=== PATIENT | male | born 1985 | race Native Hawaiian/Other Pacific Islander ===

== ENCOUNTER 2025-02-05 17:56 | Emergency (ER) | payer MEDICARE, SELFPAY ==
--- NOTE | ~2025-02-05 | CT_ITS ---
EXAMINATION: CT LE LT w con DATE: 02/05/2025 21:43 INDICATION: Left lower limb pain. TECHNIQUE: Computed tomography (CT) of the left lower limb was performed with 100 mL Omnipaque 350 intravenous contrast. Automated exposure control and iterative reconstruction technique were employed. The dose-length product was 1629.40 mGy-cm. COMPARISON: None FINDINGS: Alignment is normal. No fracture. The knee joint spaces are normal. No knee joint effusion. 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 There is absence of the head of fourth metatarsal. The bone is well corticated. 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 There are enthesophytes at the posterior and plantar aspects of calcaneal tuberosity. There is subcutaneous edema in the lower leg and foot. There is soft tissue attenuation in the lateral forefoot, consistent with cellulitis versus scarring. IMPRESSION: 1. No specific evidence of osteomyelitis. Reviewed, dictated and finalized at location E.
--- NOTE | ~2025-02-05 | US_ITS ---
EXAMINATION:US venous doppler LE LT INDICATION:Left calf pain TECHNIQUE: Multiple grayscale, color flow and Doppler images of the left lower extremity deep venous systems were obtained and reviewed. COMPARISON:No prior studies for comparison. FINDINGS: The common femoral, superficial femoral and popliteal veins demonstrate normal respiratory variation, augmentation and compressibility. Color flow is also seen within the posterior tibial, peroneal, greater saphenous and profunda veins. IMPRESSION: 1: No lower extremity deep venous thrombosis. Reviewed, dictated and finalized at location O.
[2025-02-05 18:25] VITALS: BP 146/94; PULSE 102; RESP 18; TEMP 36.9; O2SAT 100
[2025-02-05 20:15] VITALS: BP 156/96; PULSE 102; RESP 14; O2SAT 99
[2025-02-05 20:46] LABS: Hematocrit 41.0 % (42.0-52.0); Hemoglobin 14.0 g/dL (14.0-18.0); Immature Granulocyte Percent A 0.4 % (0-0.5); Lymphocytes Absolute Auto 1.62 K/mm3 (0.9-3.2); Mean Corpuscular HGB Conc 34.1 g/dl (32-36); Mean Corpuscular Hemoglobin 29.5 pg (26-34); Mean Corpuscular Volume 86.3 fl (80-100); Nucleated Red Blood Cells Absolute Auto 0.000 K/mm3 (0.0-0.012); Nucleated Red Blood Cells Perc 0.0 % (0.0-0.2); Platelet Count Result 211 k/mm3 (150-375); Red Blood Count 4.75 M/mm3 (4.6-6.20); White Blood Count 8.3 K/mm3 (4.5-10.0)
[2025-02-05 21:09] LABS: Anion Gap 11 mmol/L (4-12); Blood Urea Nitrogen 17 mg/dL (9-20); CRP < 0.5 mg/dL (<1.0); Calcium 9.5 mg/dL (8.4-10.2); Carbon Dioxide 19 mmol/L (22-30); Chloride 104 mmol/L (98-107); Estimated CRCL calculation 130 ml/min; Estimated Glomerular Filt Rate > 60; Glucose 297 mg/dL (65-110); Potassium 4.1 mmol/L (3.4-5.0); Sodium 134 mmol/L (137-145)
[2025-02-05 22:48] VITALS: BP 152/88; PULSE 93; RESP 12; O2SAT 100
[2025-02-06] MEDS: ACETAMINOPHEN 500 MG TABLET 1000 MG PO (00:07)
[2025-02-06] MEDS: Please add drug allergy info to patient profile. 1 EACH XX (00:07)
--- NOTE | 2025-02-06 01:40 | ED.EXTPRO ---
HPI - Extremity Problem General Chief complaint: Extremity Problem,Nontraumatic Stated complaint: left leg swelling, sob Time Seen by Provider: 02/05/25 19:52 History of Present Illness HPI Narrative: Patient with concern for osteomyelitis, had been treated for this a month ago at outside hospital including surgery, since then has been incarcerated and was not on antibiotics and he is concerned that it may be back. Has had more swelling to the left leg and foot. Related Data Allergies Allergy/AdvReac Type Severity Reaction Status Date / Time ibuprofen Allergy Severe Anaphylaxis Verified 02/06/25 00:07 Review of Systems Review of Systems: All systems reviewed & are unremarkable except as noted in HPI and below Exam Narrative: EXAMINATION OF ORGAN SYSTEMS/BODY AREAS: Constitutional: Vital signs per nursing GENERAL:[No acute distress, non-toxic appearing.] HEAD: Normal with no signs of head trauma. EYES: EOMI, conjunctiva normal ENT: Hearing grossly intact LUNGS: Nonlabored breathing. HEART: [Regular rate and rhythm] ABD: [Soft], [nontender to palpation] EXT: Obvious swelling and some tenderness to the left foot and lower leg SKIN: Healing incision sites left lower leg NEURO: [Alert and oriented x 3. No gross focal sensory or strength deficits.] PSYCH: Normal affect Course Vital Signs Vital signs: Vital Signs Temperature 98.4 F 02/05/25 18:25 Pulse Rate 102 H 02/05/25 18:25 Respiratory Rate 18 02/05/25 18:25 Blood Pressure 146/94 H 02/05/25 18:25 Pulse Oximetry 100 02/05/25 18:25 Oxygen Delivery Room Air 02/05/25 18:25 Temperature 98.4 F 02/05/25 18:25 Pulse Rate 83 02/06/25 05:48 Respiratory Rate 15 02/06/25 05:48 Blood Pressure 160/84 H 02/06/25 05:48 Pulse Oximetry 98 02/06/25 05:48 Oxygen Delivery Room Air 02/05/25 18:25 MDM - Extremity (Nontraumatic) MDM Narrative Medical decision making narrative: Patient with concern for osteomyelitis, had been treated for this a month ago at outside hospital including surgery, since then has been incarcerated and was not on antibiotics and he is concerned that it may be back. Has had more swelling to the left leg and foot. Labs here very reassuring including no white count, normal CRP. DVT ultrasound negative, CT lower extremity with some soft tissue swelling and edema, cannot exclude underlying osteomyelitis. Case discussed with his silk top hat body maker who performed the surgery outside hospital, he does feel patient can follow-up outpatient, can start him on doxycycline at this time. Patient given a dose here in prescriptions and follow-up information provided. Lab Data 02/05/25 20:36 02/05/25 20:36 Labs: Lab Results 02/05/25 02/05/25 Range/Units 18:29 20:36 WBC 8.3 (4.5-10.0) K/mm3 RBC 4.75 (4.6-6.20) M/mm3 Hgb 14.0 (14.0-18.0) g/dL Hct 41.0 L (42.0-52.0) % MCV 86.3 (80-100) fl MCH 29.5 (26-34) pg MCHC 34.1 (32-36) g/dl RDW 13.2 (11.5-14.5) % Plt Count 211 (150-375) k/mm3 MPV 9.9 (7.4-10.4) fl Immature Gran % (Auto) 0.4 (0-0.5) % Neut % (Auto) 69.0 (45.5-73.1) % Lymph % (Auto) 19.6 (18.3-44.2) % Collin % (Auto) 8.2 (2.6-8.5) % Eos % (Auto) 2.4 (0-4.4) % Baso % (Auto) 0.4 (0.2-1.2) % Lymph # (Auto) 1.62 (0.9-3.2) K/mm3 Collin # (Auto) 0.7 H (0.1-0.6) K/mm3 Eos # (Auto) 0.2 (0-0.3) K/mm3 Baso # (Auto) 0.0 (0.0-0.1) K/mm3 Abs Immat Gran (auto) 0.03 (0.00-0.031) K/mm3 Absolute Neuts (auto) 5.7 (1.3-6.7) K/mm3 Absolute Nucleated RBC 0.000 (0.0-0.012) K/mm3 Nucleated RBC % 0.0 (0.0-0.2) % ESR 21 H (0-20) mm/hr Sodium 134 L (137-145) mmol/L Potassium 4.1 (3.4-5.0) mmol/L Chloride 104 (98-107) mmol/L Carbon Dioxide 19 L (22-30) mmol/L Anion Gap 11 (4-12) mmol/L BUN 17 (9-20) mg/dL Creatinine 0.90 (0.7-1.3) mg/dL Estim Creat Clear Calc 130 ml/min Estimated GFR > 60 (59 - ) Glucose 297 H (65-110) mg/dL POC Capillary Glucose 295 H (65-105) mg/dl Calcium 9.5 (8.4-10.2) mg/dL C-Reactive Protein < 0.5 (<1.0) mg/dL Discharge Plan Discharge Clinical Impression: Foot pain Patient Disposition: Home Condition: Stable Instructions: Antibiotic Form, Chronic Wounds (ED) Additional Instructions: Please take the antibiotics as prescribed and follow up to your silk top hat body maker Dr Ramirez -- [phone]. You can always return to the ER for any further issues. Patient Language: Ivorian Prescriptions: New doxycycline hyclate 100 mg capsule 100 mg PO Q12H 7 Days Qty: 14 0RF Follow-up/Referrals: PHYSICIAN NOT ON STAFF,NONSTAFF [Primary Care Provider]
[2025-02-06 02:39] VITALS: BP 163/90; PULSE 80; RESP 14; O2SAT 100
[2025-02-06] MEDS: MORPHINE SULFATE (*CRX) 4 MG/ML INJ IV PUSH (05:25)
[2025-02-06 05:48] VITALS: BP 160/84; PULSE 83; RESP 15; O2SAT 98
[2025-02-06] MEDS: DOXYCYCLINE HYCLATE 100 MG TABLET PO (06:13)
[2025-02-06 06:21] VITALS: BP 160/84; PULSE 83; RESP 15; O2SAT 98
== END 2025-02-06 06:24 | disposition home or self-care (01) ==
PROVIDERS: Emergency Provider Emergency Medicine
DX: M79.672 Pain in left foot (principal)
CPT/HCPCS: 36415; 73701; 80048; 82948; 85025; 85652; 86140; 87040; 93971; 96374; 99284; A9270; J2270; Q9967

== ENCOUNTER 2025-02-09 08:54 | Emergency (ER) | payer MEDICARE, SELFPAY ==
--- OUTSIDE RECORDS SUMMARY | 2025-02-07 23:13 | XMS_ITS | Encounter Summary ---
Author Organization [facility] Healthcare Address [address] [place] [address] Care Team Providers Care Tank Calibrator Name Role Phone Toribio Wolfe MD Unavailable [phone] Lilibeth Swanson NP Unavailable [phone] Tera Yousif MD Unavailable [phone] Sandie Ramirez DPM Unavailable [phone] Tarun Dunham MD Unavailable [phone] Galileo Reese DPM Unavailable [phone] Allan Tang MD Unavailable [phone] Irene Larkin NP Primary Care Provider Reason for Visit * Reason Comments Shortness of Breath BIBEMS from home wit h SOB that started intermitly early today, then the past couple of hours it has progressively gotten worse. Encounter Details Date Type Department Care Team (Late st Contact Info) Description 02/07/2025 11:13 PM CDT - 02/07/2025 11:29 PM CDT Emergency [facility] Emergency Department [address] [place] [address] Shortness of breath (Primary Dx) Discharge Disposition: Discharge to home or self care Social History Tobacco Use Types Packs/Day Years Used Date Smoking Tobacco: Former Cigarettes Smokeless Tobacco: Former Chew Alcohol Use Standard Drinks/Week Comments Never 0 (1 standard drink = 0.6 oz pur e alcohol) OASIS D0700: Social Isolation Answer Da te Recorded Frequency of experiencing loneliness or isolatio n Never 01/17/2025 OASIS A1250: Transportation Answer Date Recorded Lack of Transportation (Medical) No 01/17/2025 Lack of Transportation (Non-Medical) No 01/17/2025 Patient Unable or Declines to Respond No 01/17/2025 OASIS B1300: Health Literacy Answer Kenney e Recorded Frequency of needing help to read materials from doctor or pharmacy Never 01/17/2025 [facility] Utilities Answer Date Recorded In the past 12 months has e [employer], gas, oil, or water [employer] threatened to shut off services in your home? Yes 12/18/2024 Humiliation, Afraid, Rape, and Kick questionnair e Answer Date Recorded Within the last year, have y ou been afraid of your partner or ex-partner? No 05/25/2024 Within the last year, have y ou been humiliated or emotionally abused in other ways by your partner or ex-partner? No Within the last year, have y ou been kicked, hit, slapped, or otherwise physically hurt by your partner or ex-partner? No 05/25/2024 Within the last year, have y ou been raped or forced to have any kind of sexual activity by your partner or ex-partner? No 05/25/2024 Social Connection and Isolation Panel Answer Date Recorded In a typical week, how many times do you talk on the phone with family, friends, or neighbors? More than three times a week 12/18/2024 How often do you get togethe r with friends or relatives? Never 12/18/2024 How often do you attend chur ch or latter day services? Never 12/18/2024 Do you belong to any clubs o r organizations such as latter day groups, unions, fraternal or athletic groups, or school groups? No 12/18/2024 How often do you attend meet ings of the clubs or organizations you belong to? Never 12/18/2024 Are you , , di vorced, , never , or living with a partner? 12/18/2024 Overall Financial Resource Strain (CARDIA) Answe r Date Recorded How hard is it for you to pa y for the very basics like food, housing, medical care, and heating? Very hard 12/18/2024 PHQ-2 Answer Date Recorded PHQ-2 Total Score (If total score is 3 or more points, staff should administer the PHQ-9) 0 01/19/2025 [facility] Occupat ional [facility] - Occupational Stress Questionnaire Answer Date Recorded Do you feel stress - tense, restless, nervous, or anxious, or unable to sleep at night because your mind is troubled all the time - these days? Rather much 05/25/2024 Exercise Vital Sign Answer Date Recorde d On average, how many days pe r week do you engage in moderate to strenuous exercise (like a brisk walk)? 2 days 05/25/2024 On average, how many minutes do you engage in exercise at this level? 90 min 05/25/2024 Hunger Vital Sign Answer Date Recorded Within the past 12 months, y ou worried that your food would run out before you got the money to buy more. Never true 12/19/19 25 Within the past 12 months, t he food you bought just didn't last and you didn't have money to get more. Never true 12/18/2024 PRAPARE - Transportation Answer Date Re corded In the past 12 months, has l ack of transportation kept you from medical appointments or from getting medications? No 08/2024 In the past 12 months, has l ack of transportation kept you from meetings, work, or from getting things needed for daily living? No 12/18/2024 PHQ-9 Answer Date Recorded PHQ-9 Total Score 0 05/25/2024 Housing Stability Vital Sign Answer Kenney e Recorded In the last 12 months, was t here a time when you were not able to pay the mortgage or rent on time? Yes 12/18/2024 In the past 12 months, how m any times have you moved where you were living? 0 12/18/2024 At any time in the past 12 m [facility], were you homeless or living in a usp (including now)? No 12/18/2024 AUDIT-C Answer Date Recorded Q1: How often do you have a drink containing alcohol? Never 01/19/2025 Q2: How many drinks containi ng alcohol do you have on a typical day when you are drinking? Patient does not drink Q3: How often do you have si x or more drinks on one occasion? Never 01/19/2025 Overall Financial Resource Strain (CARDIA) Answe r Date Recorded How hard is it for you to pa y for the very basics like food, housing, medical care, and heating? Very hard 12/27/2024 Personal Safety Answer Date Recorded Have you ever been in or are you currently in a harmful physical or emotional relationship or is someone making you feel afraid or unsafe? Denies 02/07/2025 Education Answer Date Recorded What is the highest level of school you have completed or the highest degree you have received? Master's degree (e.g., MA, MS, Carmen, MEd, RECORD CLERK, TRACEY) 05/18/2024 Sex and Gender Information Value Date Recorded Sex Assigned at Not on file Legal Sex Male 2:28 PM CDT Gender Identity Not on file Sexual Orientation Not on file documented as of this encounter Last Filed Vital Signs Vital Sign Reading Time Taken Comments Blood Pressure 133/93 02/07/2025 7:40 PM CDT Pulse 101 02/07/2025 7:40 PM CDT Temperature 37 C (98.6 F) 02/07/2025 7:39 PM CDT Respiratory Rate 18 02/07/2025 7:40 PM CDT Oxygen Saturation 96% 02/07/2025 7:40 PM CDT Inhaled Oxygen Concentration - - Weight 117.9 kg (260 lb) 02/07/2025 7:39 PM CDT Height 185.4 cm (6' 1) 02/07/2025 7:39 PM CDT Body Mass Index 34.3 02/07/2025 7:39 PM CDT documented in this encounter Discharge Instructions * Discharge Instructions* Shannan Garcia NP - 02/07/2025 11:20 PM CDT Take medicines as needed for shortness of breath, follow up with the primary care doctor for re-evaluation, return to ED immediately for any worsening symptoms. documented in this encounter Medications at Time of Discharge albuterol HFA (PROVENTIL HFA,VENTOLIN HFA,PROAIR HFA) 90 mcg/actuation inhaler Inhale 2 puffs every 4 (four) hours as needed for wheezing 1 each 02/07/2025 blood glucose diagnostic (glucose blood) stripIndications:typ e 2 diabetes mellitus Check blood sugar 3x times a day or as directed 100 each 5 06/12/2024 insulin aspart (NovoLOG) 100 unit/mL (3 mL) pen for injectionIndications :type 2 diabetes mellitus Inject 26 Units under the skin 3 (three) times a day with meals (plus blood glucose mg/dL 150-199: 1 unit, 200-249: 2 units, 250-299: 3 units, 300 or greater: 4 units, 350 or greater: 5 units. Notify provider for blood glucose greater than 299 mg/dL. Max daily dose 90 units) 70 mL 3 01/19/2025 insulin glargine 100 unit/mL (3 mL) pen for injectionIndications :DM Inject 42 Units under the skin 2 (two) times a day 01/19/2025 lisinopriL (PRINIVIL,ZESTRIL) 2.5 mg tabletIndications:Ty pe 2 diabetes mellitus with hyperglycemia, with long-term current use of insulin (HCC),Small vessel arterial disease due to type 2 diabetes mellitus (HCC) Take 1 tablet (2.5 mg total) by mouth daily 90 tablet 1 01/19/2025 6 Narcan 4 mg/actuation spray,non-aerosol 0 12/28/2024 Oneuch Delica Plus Lancet 33 gauge miscIndications:type 2 diabetes mellitus 06/15/2024 pen needle, diabetic 32 gauge x 5/32 needle 12/06/2024 prazosin (MINIPRESS) 2 mg capsuleIndications:P ost Traumatic Stress Disorder Take 2 capsules (4 mg total) by mouth nightly 4 mg total at night 180 capsule 1 08/31/2024 6 pregabalin (LYRICA) 100 mg capsuleIndications:D iabetic Peripheral Neuropathy Take 1 capsule (100 mg total) by mouth 3 (three) times a day 270 capsule 1 01/19/2025 6 rosuvastatin (CRESTOR) 5 mg tabletIndications:Ty pe 2 diabetes mellitus with hyperglycemia, with long-term current use of insulin (HCC),Small vessel arterial disease due to type 2 diabetes mellitus (HCC),Mixed hyperlipidemia Take 1 tablet (5 mg total) by mouth daily 90 tablet 1 01/19/2025 tirzepatide (Mounjaro) 7.5 mg/0.5 mL pen injector injectionIndications :Type 2 diabetes mellitus with hyperglycemia, with long-term current use of insulin (HCC) Inject 0.5 mL (7.5 mg total) under the skin every 7 days 6 mL 01/19/2025 traZODone (DESYREL) 300 mg tabletIndications:in somnia associated with depression Take 1 tablet (300 mg total) by mouth nightly as needed for sleep 90 tablet 1 08/31/2024 6 documented as of this encounter Ordered Prescriptions Prescription Sig Dispense Quantity Refills Last Filled Start Date End Date albuterol HFA (PROVENTIL HFA,VENTOLIN HFA,PROAIR HFA) 90 mcg/actuation inhaler Inhale 2 puffs every 4 (four) hours as needed for wheezing 1 each 02/07/2025 6 documented in this encounter Discharge Disposition Disposition Code Departure Means Destination Comment s Discharge to home or self care documented in this encounter ED Notes * Shikha Lehman PA - 02/07/2025 9:27 PM CDT HPI Chief Complaint Patient presents with ??? Shortness of Breath BIBEMS from home with SOB that started intermitly early today, then the past couple of hours it hasprogressively gotten worse. 39-year-old A&O x4 male patient presents for evaluation of generalized body aches including chest pain and intermittent shortness a breath. [facility] Was seen at [facility] just prior to this and diagnosed with hyperglycemia. His was improved and he was discharge. He states the chest pain and shortness of breath was present before his visit to then today but he did nottell them about concerns Patient History: Past Medical History: Diagnosis Date ??? Anxiety ??? Cancer (HCC) ??? Depression ??? Diabetes mellitus (HCC) ??? Diabetic ketoacidosis without coma associated with type 2 diabetes mellitus (HCC) 05/17/2024 ??? GERD (gastroesophageal reflux disease) ??? Headache ??? Hepatocellular carcinoma (HCC) ??? Hyperlipidemia ??? Hypertension ??? PTSD (post-traumatic stress disorder) ??? Sleep difficulties ??? TBI (traumatic brain injury) (HCC) ??? Type 2 diabetes mellitus ??? Upper GI bleed 11/13/2021 Last Assessment & Plan: Patient presents with episode of epigastric abdominal pain and hematemesis 1 day prior to hospitalization ?? Patient also complained of blood in his stool 2 days prior to this presentation ?? Evaluated by Gastroenterology recommend conservative management Hemoglobin Date Value Ref Range Status 10/31/2021 13.8 13.5 - 17.0 g/dL Final Patient was switched from Pro Review of Systems Review of Systems Respiratory: Positive for shortness of breath. Cardiovascular: Positive for chest pain. All other systems reviewed and are negative. Physical Exam ED Triage Vitals Temp Pulse Resp BP SpO2 02/07/25193802/07/25193902/07/25193902/07/25193902/07/251939 37 ??C (98.6 ??F) 101 18 133/93 96 % Temp src Heart Rate Source Patient Position BP Location FiO2 (%) -- -- -- -- -- Height Height Method Weight Weight Method 02/07/251938 -- 02/07/251938 -- 1.854 m (6' 1) 117.9 kg (260 lb) Physical Exam Vitals and nursing note reviewed. Constitutional: General: He is not in acute distress. Appearance: Normal appearance. He is not ill-appearing, toxic-appearing or diaphoretic. Eyes: Extraocular Movements: Extraocular movements intact. Pupils: Pupils are equal, round, and reactive to light. Cardiovascular: Rate and Rhythm: Normal rate. Pulses: Normal pulses. Pulmonary: Effort: Pulmonary effort is normal. Breath sounds: Normal breath sounds. Abdominal: Tenderness: There is no abdominal tenderness. Musculoskeletal: General: No swelling or tenderness. Normal range of motion. Cervical back: Normal range of motion. Skin: General: Skin is warm and dry. Capillary Refill: Capillary refill takes less than 2 seconds. Neurological: General: No focal deficit present. Mental Status: He is alert and oriented to person, place, and time. Cranial Nerves: No cranial nerve deficit. Sensory: No sensory deficit. Motor: No weakness. Coordination: Coordination normal. Gait: Gait normal. Deep Tendon Reflexes: Reflexes normal. MDM Heart Score Medical Decision Making 39-year-old A&O x4 male patient presents for evaluation of chest pain, shortness a breath. thisstarted this morning while at rest and has been intermittent. [facility] and not able to fill any prescriptions. Medical history only relevant for diabetes. Of note, [facility] and discharged from the ER just prior to arrival where he did not mention the chest pain or shortness of breath to them. He was found to be hyperglycemic but not in DKA. He was given insulin and fluids and monitored and improved. He denies fever or chills. No cough Physical exam shows well-appearing male patient. Lungs clear all gunn. Heart tones normal. No swelling lower extremities. Skin pink/warm/dry. Abdomen soft nontender all quadrants. No obvious respiratory distress, able to speak in clear sentences without increased work of breathing including tripoding or accessory muscle use Differential: Generalized malaise, musculoskeletal pain, metabolic derangement, pneumonia. Doubt ACS. Doubt PE, 100% on room air and not tachy Plan: Labs, EKG, chest x-ray Amount and/or Complexity of Data Reviewed Labs: Decision-making details documented in ED Course. Radiology: Decision-making details documented in ED Course. ECG/medicine tests: independent interpretation performed. ED Course as of 02/07/25 2321 Time: 02/07 2103 Value: Trop T hs(!): 25 Comment: We will trend By: Shikha Lehman PA Time: 02/07 2103 Value: CBC with auto differential: WBC 9.41 Hgb 14.4 Hct 41.1 Plt 208 MPV 10.4 RBC 4.79 MCV 85.8 MCH 30.1 MCHC 35.0 RDW CV 12.9 RDW SD 39.9 NRBC abs 0.00 Comment: Unremarkable By: Shikha Lehman PA Time: 02/07 2103 Value: Glucose(!): 247 Comment: No gap By: Shikha Lehman PA Time: 02/08 2104 Value: XR Chest 1 Vw Portable (If patient hemodynamically UNstable or UNable to ambulate) Comment: Negative By: Shikha Lehman PA Time: 02/08 2132 Comment: Will transfer care to MATTHEW Garcia d/t shift jw. Pending T2 result for dispo By: Shikha Lehman PA Time: 02/08 2320 Comment: Received sign-out from Smiley RAMOS pending 2nd tropes. Her 2nd troponin insignificant, he has no symptoms, though he came in for shortness of breath, has a lung sounds are clear, no hypoxemia, notachypnea, no tachycardia. Sending him home on ProAir along with the instruction to follow up with the primary care doctor for re-evaluation return to ED immediately for any worsening symptoms. He agrees with this plan. By: Shannan Garcia NP Final diagnoses: None Shikha Lehman PA 02/07/252132 documented in this encounter Miscellaneous Notes * ED Procedure Note - Jh Cheema MD - 02/07/2025 8:10 PM CDTAssociated Order(s): ECG 12 lead Procedure ECG 12 lead Date/Time: 02/07/2025 8:10 PM Performed by: Jh Cheema MD Authorized by: Jh Cheema MD Rate: ECG rate: 103 ECG rate assessment: tachycardic Rhythm: Rhythm: sinus tachycardia Interpretation: Interpretation: abnormal Jh Cheema MD 02/07/252009 documented in this encounter Plan of Treatment Not on file documented as of this encounter Procedures Procedure Name Priority Date/Time Associated Diagnosis Comments POCT GLUCOSE DEVICE Routine 02/07/2025 1 1:24 PM CDT TROPONIN T HIGH-SENSITIVITY 2-HOUR Timed 02/07/2025 10:18 PM CDT XR CHEST 1 VIEW ED 02/07/2025 8:11 PM CDT TROPONIN T HIGH-SENSITIVITY SERIES (BASELINE, 2HR, 4HR, 6HR) STAT 02/07/2025 8:08 PM CDT EGFR STAT 02/07/2025 8:08 PM CDT DIFFERENTIAL AUTO STAT 02/07/2025 8:0 8 PM CDT CBC WITH AUTO DIFFERENTIAL STAT 02/07/2025 8:08 PM CDT COMPREHENSIVE METABOLIC PANEL STAT 02/07/2025 8:08 PM CDT ECG 12-LEAD STAT 02/07/2025 8:04 PM CDT documented in this encounter Results * (ABNORMAL) POCT glucose (02/07/2025 11:24 PM CDT) Glucose, POC 296(H) 70 - 199 mg/dL Blood 02/07/2025 11:2 4 PM CDT 02/07/2025 11:24 PM CDT Notinfile Unknown LAB POCT ORDERABLES - DEVICE F inal Result Performing Organization Address City/[facility]/ZIP Co de Phone Number [facility] ([place]) [address] [facility] [place] [address] * (ABNORMAL) Troponin T high-sensitivity 2-hour (02/07/2025 10:18 PM CDT) Trop T hs 24(H) <=22 ng/L [facility] ([place]) Comment: Interpretive Data For further hscTnT resources including the diagnostic algorithm and an aid in interpretation, copy and paste this link: https://nrl.testcatalog.org/show/hsTrop Current Interpretive Data last revised 2020. Trop T hs delta -1 ng/L [facility] ([place]) Trop T hs interp Insignificant [facility] ([place]) Blood 02/07/2025 10:1 8 PM CDT 02/07/2025 10:21 PM CDT us Jh Cheema MD LAB BLOOD ORDERABLES Final R esult Performing Organization Address City/[facility]/ZIP Co de Phone Number [facility] ([place]) [address] [facility] [place] [address] * XR Chest 1 Vw Portable (If patient hemodynamically UNstable or UNable to ambulate) (02/07/2025 8:11PM CDT) Anatomical Region Laterality Modality Body, Chest N/A Computed Radiogr aphy 02/07/2025 8:14 PM CDT Narrative 02/07/2025 8:15 PM CDT EXAM DESCRIPTION: XR CHEST 1 VIEW REASON FOR STUDY: Shortness of breath C/o shortness of breath today Hx of HTN, DM Former smoker TECHNIQUE: Frontal radiographic view(s) of the chest. COMPARISON: 11/30/2024 FINDINGS: LUNGS: Mild bibasilar atelectasis. No focal pulmonary parenchymal consolidation, pleural effusion, or pneumothorax. HEART/MEDIASTINUM: Cardiac silhouette normal in size. Mediastinal and hilar contours appear normal. LINES/TUBES: A right shunt catheter extends along the right neck, right hemithorax and extending to the abdomen, incompletely imaged. BONES: No acute osseous abnormality. IMPRESSION: No acute cardiopulmonary abnormality. THIS IS AN ELECTRONICALLY VERIFIED FINAL REPORT 02/07/2025 8:15 PM - Electronically signed by Jon Linn M.D. AT: AT Report ID: [id number] Reading Location: [id number] Procedure Note Jon Linn MD - 02/07/2025 EXAM DESCRIPTION: XR CHEST 1 VIEW REASON FOR STUDY: Shortness of breath C/o shortness of breath today Hx of HTN, DM Former smoker TECHNIQUE: Frontal radiographic view(s) of the chest. COMPARISON: 11/30/2024 FINDINGS: LUNGS: Mild bibasilar atelectasis. No focal pulmonary parenchymal consolidation, pleural effusion, or pneumothorax. HEART/MEDIASTINUM: Cardiac silhouette normal in size. Mediastinal andhilar contours appear normal. LINES/TUBES: A right shunt catheter extends along the right neck, right hemithorax and extending to the abdomen, incompletely imaged. BONES: No acute osseous abnormality. IMPRESSION: No acute cardiopulmonary abnormality. THIS IS AN ELECTRONICALLY VERIFIED FINAL REPORT 02/07/2025 8:15 PM - Electronically signed by Jon Linn M.D. AT: AT Report ID: [id number] Reading Location: [id number] Jh Cheema MD IMG XR PROCEDURES Final Resu lt * eGFR (02/07/2025 8:08 PM CDT) eGFR >90 >=60 mL/min/1. 73 m2 Comment: Interpretive Data Reference Interval Normal >/= 90 mL/min/1.73m2 Mildly decreased* 60 - 89 mL/min/1.73m2 Mildly to moderately decreased 45 - 59 mL/min/1.73m2 Moderately to severely decreased 30 - 44 mL/min/1.73m2 Severely decreased 15 - 29 mL/min/1.73m2 Kidney Failure < 15 mL/min/1.73m2 *Relative to young adult level Estimated glomerular filtration rate is determined by the 2020 CKD-EPI equation recommended by the National Kidney Foundation (A Unifying Approach to GFR Estimation: Recommendations of the NKF-ASK Task Force on Reassessing the Inclusion of Race in Diagnosing Kidney Disease, JASN 2020). The CKD-EPI equation should not be used for patients with unstable renal function and has not been validated in children and those over 70. Current interpretive data was last reviewed 2021. Blood 02/07/2025 8:08 PM CDT 02/07/2025 8:21 PM CDT Jh Cheema MD LAB BLOOD ORDERABLES Final R esult [facility] ([place]) [address] [facility] Department [place] [address] * Differential, auto (02/07/2025 8:08 PM CDT) Neutrophil abs 6.13 1.50 - 6.50 K/cumm Imm gran abs 0.04 0.00 - 0.10 K/cumm [facility] ([place]) Lymphocyte abs 2.23 0.80 - 3.30 K/cumm [facility] ([place]) Monocyte abs 0.74 0.20 - 0.80 K/cumm [facility] ([place]) Eosinophil abs 0.24 0.00 - 0.50 K/cumm [facility] ([place]) Basophil abs 0.03 0.00 - 0.10 K/cumm [facility] ([place]) Neutrophil pct 65.1 % [facility] ([place]) Comment: Interpretive Data Percent cell count reference ranges are not reported, since discordance with absolute values may lead to misinterpretation of CBC data. Current Interpretive Data was last revised on 2017. Imm gran pct 0.4 % [facility] ([place]) Comment: Interpretive Data Percent cell count reference ranges are not reported, since discordance with absolute values may lead to misinterpretation of CBC data. Current Interpretive Data was last revised on 2017. Lymphocyte pct 23.7 % [facility] ([place]) Comment: Interpretive Data Percent cell count reference ranges are not reported, since discordance with absolute values may lead to misinterpretation of CBC data. Current Interpretive Data was last revised on 2017. Monocyte pct 7.9 % [facility] ([place]) Comment: Interpretive Data Percent cell count reference ranges are not reported, since discordance with absolute values may lead to misinterpretation of CBC data. Current Interpretive Data was last revised on 2017. Eosinophil pct 2.6 % [facility] ([place]) Comment: Interpretive Data Percent cell count reference ranges are not reported, since discordance with absolute values may lead to misinterpretation of CBC data. Current Interpretive Data was last revised on 2017. Basophil pct 0.3 % [facility] ([place]) Comment: Interpretive Data Percent cell count reference ranges are not reported, since discordance with absolute values may lead to misinterpretation of CBC data. Current Interpretive Data was last revised on 2017. Blood 02/07/2025 8:08 PM CDT 02/07/2025 8:21 PM CDT us Jh Cheema MD LAB BLOOD ORDERABLES Final R esult [facility] ([place]) [address] [facility] Department [place] [address] * (ABNORMAL) Troponin T high-sensitivity series (baseline, 2hr, 4hr, 6hr) (02/07/2025 8:08 PM CDT) Trop T hs 25(H) <=22 ng/L [facility] ([place]) Comment: Interpretive Data For further hscTnT resources including the diagnostic algorithm and an aid in interpretation, copy and paste this link: https://nrl.testcatalog.org/show/hsTrop Current Interpretive Data last revised 2020. Blood 02/07/2025 8:08 PM CDT 02/07/2025 8:21 PM CDT us Jh Cheema MD LAB BLOOD ORDERABLES Final R esult [facility] ([place]) [address] [facility] Department [place] [address] * CBC with auto differential (02/07/2025 8:08 PM CDT) WBC 9.41 3.80 - 9.90 K/cumm Hgb 14.4 13.0 - 17.5 g/dL [facility] ([place]) Hct 41.1 38.9 - 50.3 % [facility] ([place]) Plt 208 150 - 400 K/cumm [facility] ([place]) MPV 10.4 9.1 - 12.3 fL [facility] ([place]) RBC 4.79 4.30 - 5.80 M/cumm [facility] ([place]) MCV 85.8 81.3 - 96.4 fL [facility] ([place]) MCH 30.1 27.1 - 33.3 pg [facility] ([place]) MCHC 35.0 32.3 - 35.7 g/dL [facility] ([place]) RDW CV 12.9 11.1 - 14.9 % [facility] ([place]) RDW SD 39.9 35.7 - 48.1 fL [facility] ([place]) NRBC abs 0.00 0.00 - 0.01 K/cumm [facility] ([place]) Blood 02/07/2025 8:08 PM CDT 02/07/2025 8:21 PM CDT us Jh Cheema MD LAB BLOOD ORDERABLES Final R esult NAOMIE GOMEZ ([place]) 1 [facility] Department of Laboratories [place], [place] [id number] * (ABNORMAL) Comprehensive metabolic panel (02/07/2025 8:08 PM CDT) Sodium 139 135 - 145 mmol/L [facility] ([place]) Potassium, pl 3.9 3.3 - 4.9 mmol/L [facility] ([place]) Chloride 107 97 - 110 mmol/L [facility] ([place]) CO2 18(L) 22 - 32 mmol/L [facility] ([place]) Anion gap 14 2 - 15 mmol/L [facility] ([place]) BUN 21 6 - 25 mg/dL [facility] ([place]) Creatinine 0.85 0.80 - 1.30 mg/dL [facility] ([place]) Glucose 247(H) 70 - 199 mg/dL [facility] ([place]) Comment: Interpretive Data Fasting glucose >/= 126 mg/dl is diagnostic for diabetes. Fasting is defined as no caloric intake for at least 8 hours. Fasting glucose between 100 mg/dl to 125 mg/dl is diagnostic of prediabetes. In a patient with classic symptoms of hyperglycemia or hyperglycemic crisis, a random glucose >/= 200 mg/dl is diagnostic for diabetes. In the absence of unequivocal hyperglycemia, results should be confirmed by repeat testing. The classification and Diagnosis of Diabetes Diabetes Care 2021; 46: S19-S40. Current interpretive data was last revised 2022. Calcium 9.5 8.5 - 10.3 mg/dL [facility] ([place]) Bilirubin, total 0.3 0.1 - 1.2 mg/dL [facility] ([place]) Protein, pl 6.9 6.5 - 8.5 g/dL [facility] ([place]) Albumin 4.0 3.5 - 5.0 g/dL [facility] ([place]) Alk phos 124 40 - 130 Units/L [facility] ([place]) ALT 17 7 - 55 Units/L [facility] ([place]) AST 16 10 - 50 Units/L [facility] ([place]) Blood 02/07/2025 8:08 PM CDT 02/07/2025 8:21 PM CDT Jh Cheema MD LAB BLOOD ORDERABLES Final R esult Performing Organization Address City/[facility]/ZIP Co de Phone Number NAOMIE GOMEZ ([place]) 1 [facility] Department [place] [address] * ECG 12 lead (02/07/2025 8:04 PM CDT) 02/07/2025 8:04 PM CDT Narrative [facility] - 02/08/2025 10:59 AM CDT Vent Rate: 103 bpm RR Interval: 578 msec IA Interval: 157 msec QRS Duration: 98 msec QT Interval: 323 msec QTC Interval: 383 msec P-R-T [place]: 9 - -26 - 31 degrees IMPRESSION: SINUS TACHYCARDIA BORDERLINE LEFT AXIS DEVIATION [QRS AXIS < -20] VOLTAGE CRITERIA FOR LVH [MEETS CRITERIA IN ONE OF: R(aVL), S(V1), R(V5), R(V5/V6)+S(V1)] NONSPECIFIC T-WAVE ABNORMALITY ABNORMAL ECG NO CHANGE FROM PREVIOUS TRACING NOTED Electronically Signed By: Leonardo Bynum MD Jh Cheema MD ECG ORDERABLES Final Result Performing Organization Address City/[facility] Co de Phone Number [facility] documented in this encounter Visit Diagnoses Diagnosis Shortness of breath- Primary documented in this encounter Care Teams Tank Calibrator Relationship Specialty Start Date End Date Irene Larkin NP [address] [place] [address] PCP - General Family Medicine 08/31/24 Toribio Wolfe MD Consulting Physician Cardiovascular Disease 02/22/24 Lilibeth Swanson NP Nurse Practitioner Endocrinology Diabetes & Metabolism 02/22/24 Tera Yousif MD [address] [place] [address] Consulting Physician Gastroenterology 02/22/24 Sandie Ramirez DPM [address] [address] Consulting Physician Foot and Ankle Surg 02/22/24 Tarun Dunham MD [address] [place] [address] Consulting Physician Hematology and Oncology 02/22/24 Galileo Reese DPM [address] [place] [address] Consulting Physician Foot and Ankle Surg 05/25/24 Allan Tang MD [address] [address] Consulting Physician Infectious Diseases 07/06/24 documented as of this encounter
--- OUTSIDE RECORDS SUMMARY | 2025-02-07 23:13 | XMS_ITS | Encounter Summary ---
Author Organization [facility] Healthcare Address [address] [place] [address] Care Team Providers Care Sales Intern Name Role Phone Toribio Wolfe MD Unavailable [phone] Lilibeth Swanson NP Unavailable [phone] Tera Yousif MD Unavailable [phone] Sandie Ramirez DPM Unavailable [phone] Tarun Dunham MD Unavailable [phone] Galileo Reese DPM Unavailable [phone] Allan Tang MD Unavailable [phone] Irene Larkin NP Primary Care Provider Reason for Visit * Reason Comments Shortness of Breath BIBEMS from home wit h SOB that started intermitly early today, then the past couple of hours it has progressively gotten worse. Encounter Details Date Type Department Care Team (Late st Contact Info) Description 02/07/2025 11:13 PM CDT - 02/07/2025 11:29 PM CDT Emergency [facility] Emergency Department [address] [place] [address] Shortness of breath (Primary Dx) Discharge Disposition: [...] materials from doctor or pharmacy Never 01/17/2025 [facility] Utilities Answer Date Recorded In the past 12 months has [employer], gas, oil, or water [employer] threatened to shut off services in your [...] often do you attend chur ch or rastafari services? Never 12/18/2024 Do you belong to any clubs o r organizations such as congregational groups, unions, fraternal or athletic groups, or [...] staff should administer the PHQ-9) 0 01/19/2025 [facility] - Occupational Stress Questionnaire Answer Date [...] any time in the past [address] [facility], were you homeless or living in a custodial (including now)? No 12/18/2024 AUDIT-C Answer Date [...] Master's degree (e.g., MA, MS, Carmen, MEd, BELT OPERATOR, TRACEY) 05/18/2024 Sex and Gender Information Value [...] intermittent shortness a breath. Recently released from nursing home. Was seen at [facility] just prior to this and diagnosed [...] and has been intermittent. Recently released from nursing home and not able to fill any prescriptions. Medical history only relevant for diabetes. Of note, he was [facility] and discharged from the ER just prior [...] DEVICE F inal Result Performing Organization Address City/[facility]/ZIP Co de Phone Number NAOMIE GOMEZ ([place]) 1 [facility] [place] [address] * (ABNORMAL) Troponin T high-sensitivity 2-hour (02/07/2025 [...] ORDERABLES Final R esult Performing Organization Address City/[facility]/ZIP Co de Phone Number NAOMIE GOMEZ ([place]) 1 [facility] [place] [address] * XR Chest 1 Vw Portable (If [...] Jon Linn M.D. AT: AT Report ID: [id number] Reading Location: [id number] Procedure Note Jon Linn MD - 02/07/2025 [...] Jon Linn M.D. AT: AT Report ID: [id number] Reading Location: [id number] Jh Cheema MD IMG XR PROCEDURES Final [...] MD LAB BLOOD ORDERABLES Final R esult [facility] ([place]) 1 [facility] Department [place] [address] * Differential, auto (02/07/2025 8:08 PM CDT) Neutrophil abs 6.13 1.50 - 6.50 K/cumm Imm gran abs 0.04 0.00 - 0.10 K/cumm [facility] ([place]) Lymphocyte abs 2.23 0.80 - 3.30 K/cumm [facility] ([place]) Monocyte abs 0.74 0.20 - 0.80 K/cumm [facility] ([place]) Eosinophil abs 0.24 0.00 - 0.50 K/cumm [...] Final R esult NAOMIE GOMEZ ([place]) 1 [facility] Department [place] [address] * (ABNORMAL) Troponin T high-sensitivity series (baseline, [...] Final R esult [facility] ([place]) 1 [facility] Department [place] [address] * CBC with auto differential (02/07/2025 8:08 [...] LAB BLOOD ORDERABLES Final R esult NAOMIE GOEMZ ([place]) 1 [facility] Department of Laboratories [place], [place] [id number] * (ABNORMAL) Comprehensive metabolic panel (02/07/2025 8:08 [...] ORDERABLES Final R esult Performing Organization Address City/[facility]/ZIP Co de Phone Number NAOMIE GOMEZ ([place]) 1 [facility] Department [place] [address] * ECG 12 lead (02/07/2025 8:04 PM CDT) 02/07/2025 8:04 PM CDT Narrative [facility] - 02/08/2025 10:59 AM CDT Vent Rate: 103 bpm RR Interval: 578 msec IA Interval: 157 msec QRS Duration: 98 msec QT Interval: 323 msec QTC Interval: 383 msec P-R-T [place]: 9 - -26 - 31 degrees IMPRESSION: SINUS TACHYCARDIA BORDERLINE LEFT AXIS DEVIATION [QRS AXIS < -20] VOLTAGE CRITERIA FOR LVH [MEETS CRITERIA IN ONE OF: R(aVL), S(V1), R(V5), R(V5/V6)+S(V1)] NONSPECIFIC T-WAVE ABNORMALITY ABNORMAL ECG NO CHANGE FROM PREVIOUS TRACING NOTED Electronically Signed By: Leonardo Bynum MD Jh Cheema MD ECG ORDERABLES Final Result Performing Organization Address City/[facility] Co de Phone Number [facility] [employer] [facility] documented in this encounter Visit Diagnoses Diagnosis Shortness of breath- Primary documented in this encounter Care Teams Sales Intern Relationship Specialty Start Date End Date Irene Larkin NP [address] [place] [address] PCP - General Family Medicine 08/31/24 Toribio Wolfe MD Consulting Physician Cardiovascular Disease 02/22/24 Lilibeth Swanson NP Nurse Practitioner Endocrinology Diabetes & Metabolism 02/22/24 Tera Yousif MD [address] [facility] [address] [place] [address] Consulting Physician Gastroenterology 02/22/24 Sandie Ramirez DPM [address] [address] Consulting Physician Foot and Ankle Surg 02/22/24 Tarun Dunham MD [address] [facility] [address] [place] [address] Consulting Physician Hematology and Oncology 02/22/24 Galileo Reese DPM [address] [place] [address] Consulting Physician Foot and Ankle Surg 05/25/24 Allan Tang MD [address] [address] Consulting Physician Infectious Diseases 07/06/24 documented as of this encounter
--- NOTE | ~2025-02-09 | CT_ITS ---
CT foot LT w con 02/09/2025 11:19 Indication: Wound on plantar surface of the foot. History of osteomyelitis. 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 The residual distal fifth metatarsal demonstrates hypertrophic bone formation with adjacent soft tissue thickening involving the surgical bed and extending toward the fifth toe. These findings are suspicious for acute on chronic osteomyelitis with associated soft tissue inflammatory changes or phlegmon. Additional soft tissue thickening extends into the metatarsal plate, the surrounding second, third and fourth metatarsophalangeal joints suggesting spread of inflammation. There is chronic resorption or prior resection of the fourth metatarsal head consistent with sequela of long-standing infection or prior surgical intervention. Impression: 1: Findings compatible with acute on chronic osteomyelitis involving the residual distal fifth metatarsal. 2: Inflammatory extension into the forefoot involving the second through fourth metatarsophalangeal joints. 3: Chronic resorption or resection of the fourth metatarsal head, likely reflecting sequela of previous infection or surgery. Reviewed, dictated and finalized at location O. Impression: 1: Findings compatible with acute on chronic osteomyelitis involving the residu al distal fifth metatarsal. 2: Inflammatory extension into the forefoot involving the second through fourt h metatarsophalangeal joints. 3: Chronic resorption or resection of the fourth metatarsal head, likely reflec ting sequela of previous infection or surgery.
--- OUTSIDE RECORDS SUMMARY | 2025-02-09 09:01 | XMS_ITS | Clinical Summary ---
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 City/[facility]/ZIP Co de Phone Number [facility] ([place]) 1 [facility] [place] [address] * (ABNORMAL) POCT glucose (12/27/2024 4:39 PM CDT) Glucose, POC 206(H) 70 - 199 mg/dL Blood 12/27/2024 4:39 PM CDT 12/27/2024 4:39 PM CDT Luis Langford DO LAB POCT ORDERABLES - DEVICE Final Result Performing Organization Address City/[facility]/ZIP Co de Phone Number [facility] ([place]) 1 [facility] [place] [address] * (ABNORMAL) POCT glucose (12/27/2024 11:00 AM CDT) Glucose, POC 207(H) 70 - 199 mg/dL Blood 12/27/2024 11:0 0 AM CDT 12/27/2024 11:00 AM CDT Luis Langford DO LAB POCT ORDERABLES - DEVICE Final Result [facility] ([place]) 1 [facility] [place] [address] * Blood culture Blood Peripheral (12/27/2024 7:32 AM CDT) Report Final Report: No growth Comment:Testing performed by : [facility], 1 [place]., [address] Blood (Peripheral) 12/27/2024 7:32 AM CDT 12/27/2024 11:28 AM CDT Narrative [facility] ([place]) - 12/31/2024 12:00 PM CDT From a different site than #1. Draw Blood cultures before administration of Antibiotics Collection->Peripheral 1. Blood cultures are incubated for 4 days on a continuously monitored blood culture system. The first report of a negative culture is issued within 24 hours of receipt of the specimen in the laboratory. 2. Positive culture results are reported as soon as they are detected. 3. The most important factor for detection of microbes in the setting of bloodstream infection is the volume of blood submitted for culture. Failure to collect an optimal blood volume can result in false negative blood cultures. 4. For pediatric patients, the recommended blood volume to collect follows a weight based strategy. See the electronic test catalog for collection instructions. 5. For positive blood cultures, a rapid molecular test may be performed for organism identification using the [employer] ePlex blood culture identification panel for gram positive (BCID-GP) and gram negative (BCID-GN) organisms. This nucleic acid amplification test detects microbial DNA in positive blood culture broth. This assay has been cleared by the [place] Food and Drug Administration and its performance characteristics have been verified by the [facility]. For questions about this culture, contact the Microbiology Laboratory at [phone]. Interpretive data was last revised on 24. us Liam Powell MD LAB MICROBIOLOGY - GENERAL ORD ERABLES Final Result [facility] ([place]) 1 [facility] Department [place] [address] * Erythrocyte sedimentation rate (12/27/2024 7:32 AM CDT) Erythrocyte sedimentation rate 14 1 - 15 mm/hr Comment:Testing performed by : [facility], [address] [place] [address], [place]., [address] Blood 12/27/2024 7:32 AM CDT 12/27/2024 8:24 AM CDT us Dominique Burger MD LAB BLOOD ORDERABLES Final Resul t Performing Organization Address [facility]/ZIP Co de Phone Number [facility] ([place]) 1 [facility] [place] [address] * CRP (acute phase) (12/27/2024 7:32 AM CDT) [facility] CRP <3.0 <=10.0 mg/L [facility] ([place]) Blood 12/27/2024 7:32 AM CDT 12/27/2024 8:24 AM CDT Dominique Burger MD LAB BLOOD ORDERABLES Final Resul t Performing Organization Address [facility] Co de Phone Number [facility] ([place]) 1 [facility] [place] [address] * (ABNORMAL) POCT glucose (12/27/2024 7:27 AM CDT) [facility] Glucose, POC 218(H) 70 - 199 mg/dL Blood 12/27/2024 7:27 AM CDT 12/27/2024 7:27 AM CDT Luis Langford DO LAB POCT ORDERABLES - DEVICE Final Result [facility] ([place]) 1 [facility] [place] [address] * eGFR (12/27/2024 5:25 AM CDT) Pathologist [facility] eGFR >90 >=60 mL/min/1. 73 m2 Comment: [...] interpretive data was last reviewed 2021. Blood 12/27/2024 5:25 AM CDT 12/27/2024 5:30 AM CDT Liam Powell MD LAB BLOOD ORDERABLES Final Res ult [facility] ([place]) 1 [facility] [place] [address] * Blood culture Blood Peripheral (12/27/2024 5:25 AM CDT) Report Final Report: No growth Comment:Testing performed by : [facility], 1 [facility], [place]., [address] Blood (Peripheral) 12/27/2024 5:25 AM CDT 12/27/2024 11:29 AM CDT Narrative [facility] ([place]) - 12/31/2024 12:00 PM CDT Draw Blood cultures before administration of Antibiotics Collection->Peripheral 1. Blood cultures are incubated for 4 days on a continuously monitored blood culture system. The first report of a negative culture is issued within 24 hours of receipt of the specimen in the laboratory. 2. Positive culture results are reported as soon as they are detected. 3. The most important factor for detection of microbes in the setting of bloodstream infection is the volume of blood submitted for culture. Failure to collect an optimal blood volume can result in false negative blood cultures. 4. For pediatric patients, the recommended blood volume to collect follows a weight based strategy. See the electronic test catalog for collection instructions. 5. For positive blood cultures, a rapid molecular test may be performed for organism identification using the [employer] ePlex blood culture identification panel for gram positive (BCID-GP) and gram negative (BCID-GN) organisms. This nucleic acid amplification test detects microbial DNA in positive blood culture broth. This assay has been cleared by the [place] Food and Drug Administration and its performance characteristics have been verified by the [facility]biology [facility]. For questions about this culture, contact the Microbiology Laboratory at [phone]. Interpretive data was last revised on 24. us Liam Powell MD LAB MICROBIOLOGY - GENERAL ORD ERABLES Final Result [facility] ([place]) 1 [facility] [place] [address] * (ABNORMAL) Basic metabolic panel (12/27/2024 5:25 AM CDT) Sodium 137 135 - 145 mmol/L [facility] ([place]) Potassium, pl 4.5 3.3 - 4.9 mmol/L [facility] ([place]) Chloride 106 97 - 110 mmol/L [facility] ([place]) CO2 19(L) 22 - 32 mmol/L [facility] ([place]) Anion gap 12 2 - 15 mmol/L [facility] ([place]) BUN 23 6 - 25 mg/dL [facility] ([place]) Creatinine 0.73(L) 0.80 - 1.30 mg/dL [facility] ([place]) Glucose 282(H) 70 - 199 mg/dL [facility] ([place]) [...] classification and Diagnosis of Diabetes Diabetes Care 202; 46: S19-S40. Current interpretive data was last revised 2022. Calcium 9.1 8.5 - 10.3 mg/dL [facility] ([place]) Blood 12/27/2024 5:25 AM CDT 12/27/2024 5:30 AM CDT us Liam Powell MD LAB BLOOD ORDERABLES Final Res ult Performing Organization Address [facility]/ZIP Co de Phone Number [facility] ([place]) 1 [facility] [place] [address] * (ABNORMAL) POCT glucose (12/27/2024 1:46 AM CDT) Glucose, POC 247(H) 70 - 199 mg/dL Blood 12/27/2024 1:46 AM CDT 12/27/2024 1:46 AM CDT Dominique Burger MD LAB POCT ORDERABLES - DEVICE Fin al Result Performing Organization Address [facility] Co de Phone Number [facility] ([place]) 1 [facility] [place] [address] * (ABNORMAL) POCT glucose (12/27/2024 12:13 AM CDT) Glucose, POC 308(H) 70 - 199 mg/dL Blood 12/27/2024 12:1 3 AM CDT 12/27/2024 12:13 AM CDT Dominique Burger MD LAB POCT ORDERABLES - DEVICE Fin al Result Performing Organization Address City/[facility] Co de Phone Number [facility] ([place]) 1 [facility] [place] [address] * (ABNORMAL) Urinalysis reflex to microscopic and culture Urine (12/26/2024 11:50 PM CDT) Color, ur Yellow Yellow Clarity, ur Clear Clear [facility] ([place]) Specific gravity, ur 1.022 1.003 - 1.030 [facility] ([place]) pH, urine 6.0 [facility] ([place]) Comment: Interpretive Data U rine pH is affected by diet, medications, systemic acid-base disturbances, and renal tubular function. pH may affect urinary stone formation. For example, urine pH below 6.0 may help reduce the tendency for calcium phosphate stones and pH greater than 6.0 may reduce the tendency for uric acid stone formation. Source: [facility] Current Interpretive Data was last revised on 2017 Protein, ur ql 1+(A) Negative [facility] ([place]) Glucose, ur ql 4+(A) Negative [facility] ([place]) Ketones, ur Negative Negative [facility] ([place]) Bilirubin, ur Negative Negative [facility] ([place]) Blood, ur Negative Negative [facility] ([place]) Urobilinogen, ur <2.0 <2.0 mg/dL [facility] ([place]) Nitrite, ur Negative Negative [facility] ([place]) Leukocyte esterase, ur Negative Negative [facility] ([place]) UA reflex comment Reflex to microscopic UA will be performed. [facility] ([place]) Urine 12/26/2024 11:5 0 PM CDT 12/26/2024 11:53 PM CDT us Liam Powell MD LAB MICROBIOLOGY - GENERAL ORD ERABLES Final Result [facility] ([place]) 1 [facility] [place] [address] * (ABNORMAL) Urinalysis, microscopic only (12/26/2024 11:50 PM CDT) WBC, ur 0-5 0 - 5 /HPF RBC, ur 0-2 0 - 2 /HPF [facility] ([place]) Epithelial cells, squamous, ur 1-5 0 - 5 /HPF [facility] ([place]) Mucous, ur Present(A) [facility] ([place]) Culture Reflex Comment Reflex conditions for urine culture (WBC >10) not met. [facility] ([place]) Urine 12/26/2024 11:5 0 PM CDT 12/26/2024 11:53 PM CDT Liam Powell MD LAB URINE ORDERABLES Final Res ult [facility] ([place]) 1 [facility] [place] [address] * Sepsis Lactate w/ Reflex (12/26/2024 11:45 PM CDT) Sepsis Lactate 2.0 0.7 - 2.0 mmol/L Blood 12/26/2024 11:4 5 PM CDT 12/26/2024 11:53 PM CDT Liam Powell MD LAB BLOOD ORDERABLES Final Res ult Performing Organization Address City/[facility] Co de Phone Number [facility] ([place]) 1 [facility] [place] [address] * XR Foot Left 3 or More Views (12/26/2024 11:33 PM CDT) Anatomical Region Laterality Modality Lower Extremities, Foot Left Computed Radiography 12/26/2024 11:4 2 PM CDT Narrative 12/26/2024 11:44 PM CDT EXAM DESCRIPTION: XR FOOT LEFT 3 OR MORE VIEWS REASON FOR STUDY: osteomy Pt ambulatory to triage with complaints of left foot and leg swelling. Pt states that his home health nurse was at his house today and did a wound dressing to his left foot. Pt had foot osteomyelitis procedure approx 2 weeks ago. Pt is unsure if he has been spiking fevers but states he has been hot. TECHNIQUE: 3 radiographic view(s) of the left foot . 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 There does appear to be some irregularity and possible erosion of the distal aspect of the remaining 5th metatarsal concerning for developing osteomyelitis. No fracture or dislocation is seen. MRI would be most helpful for further evaluation. Some soft tissue swelling of the distal foot is suspected. No air is seen in the soft tissues IMPRESSION: Findings concerning for developing osteomyelitis of the distal aspect of the remaining 5th metatarsal. MRI would be most helpful for further evaluation. THIS IS AN ELECTRONICALLY VERIFIED FINAL REPORT 12/26/2024 11:44 PM - Electronically signed by Fabrizio DOMINGUEZ: ALBERTO Report ID: [id number] Reading Location: [place] [address] Procedure Note Fabrizio Heath MD - 12/26/2024 EXAM DESCRIPTION: XR FOOT LEFT 3 OR MORE VIEWS REASON FOR STUDY: osteomy Pt ambulatory to triage with complaints of left foot and leg swelling. Pt states that his home health nurse was at his house today and did a wound dressing to his left foot. Pt had foot osteomyelitis procedure approx 2weeks ago. Pt is unsure if he has been spiking fevers but states he has been hot. TECHNIQUE: 3 radiographic view(s) of the left foot . 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 There does appear to be some irregularity and possible erosion of the distal aspect of the [id number] metatarsal concerning for developing osteomyelitis. No fracture or dislocation is seen. MRI would be most helpful for further evaluation.Some soft tissue swelling of the distal foot is suspected. No air is seen inthe soft tissues IMPRESSION: Findings concerning for developing osteomyelitis of the distal aspect ofthe remaining 5th metatarsal. MRI would be most helpful for furtherevaluation. THIS IS AN ELECTRONICALLY VERIFIED FINAL REPORT 12/26/2024 11:44 PM - Electronically signed by Fabrizio DOMINGUEZ: ALBERTO Report ID: [id number] Reading Location: [place] [address] Liam Powell MD IMG XR PROCEDURES Final Result * (ABNORMAL) POCT glucose (12/26/2024 11:20 PM CDT) Glucose, POC 394(H) 70 - 199 mg/dL Blood 12/26/2024 11:2 0 PM CDT 12/26/2024 11:20 PM CDT Liam Powell MD LAB POCT ORDERABLES - DEVICE F inal Result [facility] ([place]) [address] [place] [address] [place] [address] * eGFR (12/26/2024 10:09 PM CDT) [facility] eGFR >90 >=60 mL/min/1. 73 m2 Comment: [...] interpretive data was last reviewed 2021. Blood 12/26/2024 10:0 9 PM CDT 12/26/2024 10:13 PM CDT Liam Powell MD LAB BLOOD ORDERABLES Final Res ult [facility] ([place]) 1 [facility] [place] [address] * Differential, auto (12/26/2024 10:09 PM CDT) [facility] Neutrophil abs 4.51 1.50 - 6.50 K/cumm Imm gran abs 0.02 0.00 - 0.10 K/cumm [facility] ([place]) Lymphocyte abs 1.55 0.80 - 3.30 K/cumm [facility] ([place]) Monocyte abs 0.49 0.20 - 0.80 K/cumm [facility] ([place]) Eosinophil abs 0.19 0.00 - 0.50 K/cumm [facility] ([place]) Basophil abs 0.02 0.00 - 0.10 K/cumm [facility] ([place]) Neutrophil pct 66.5 % [facility] ([place]) Comment: Interpretive Data Percent cell count reference ranges are not reported, since discordance with absolute values may lead to misinterpretation of CBC data. Current Interpretive Data was last revised on 2017. Imm gran pct 0.3 % [facility] ([place]) Comment: Interpretive Data Percent cell count reference ranges are not reported, since discordance with absolute values may lead to misinterpretation of CBC data. Current Interpretive Data was last revised on 2017. Lymphocyte pct 22.9 % [facility] ([place]) Comment: Interpretive Data Percent cell count reference ranges are not reported, since discordance with absolute values may lead to misinterpretation of CBC data. Current Interpretive Data was last revised on 2017. Monocyte pct 7.2 % [facility] ([place]) Comment: Interpretive Data Percent cell count reference ranges are not reported, since discordance with absolute values may lead to misinterpretation of CBC data. Current Interpretive Data was last revised on 2017. Eosinophil pct 2.8 % [facility] ([place]) Comment: Interpretive [...] Data was last revised on 2017. Blood 12/26/2024 10:0 9 PM CDT 12/26/2024 10:13 PM CDT us Liam Powell MD LAB BLOOD ORDERABLES Final Res ult [facility] ([place]) 1 [facility] [employer] [place] [address] * CBC with auto differential (12/26/2024 10:09 PM CDT) WBC 6.78 3.80 - 9.90 K/cumm Hgb 13.9 13.0 - 17.5 g/dL [facility] ([place]) Hct 40.2 38.9 - 50.3 % [facility] ([place]) Plt 215 150 - 400 K/cumm [facility] ([place]) MPV 10.7 9.1 - 12.3 fL [facility] ([place]) RBC 4.56 4.30 - 5.80 M/cumm [facility] ([place]) MCV 88.2 81.3 - 96.4 fL [facility] ([place]) MCH 30.5 27.1 - 33.3 pg [facility] ([place]) MCHC 34.6 32.3 - 35.7 g/dL [facility] ([place]) RDW CV 13.9 11.1 - 14.9 % [facility] ([place]) RDW SD 44.2 35.7 - 48.1 fL [facility] ([place]) NRBC abs 0.00 0.00 - 0.01 K/cumm [facility] ([place]) Blood 12/26/2024 10:0 9 PM CDT 12/26/2024 10:13 PM CDT us Liam Powell MD LAB BLOOD ORDERABLES Final Res ult [facility] ([place]) 1 [facility] [place] [address] * (ABNORMAL) Comprehensive metabolic panel (12/26/2024 10:09 PM CDT) Sodium 134(L) 135 - 145 mmol/L [facility] ([place]) Potassium, pl 4.6 3.3 - 4.9 mmol/L [facility] ([place]) Chloride 101 97 - 110 mmol/L [facility] ([place]) CO2 20(L) 22 - 32 mmol/L [facility] ([place]) Anion gap 13 2 - 15 mmol/L [facility] ([place]) BUN 30(H) 6 - 25 mg/dL [facility] ([place]) Creatinine 0.85 0.80 - 1.30 mg/dL [facility] ([place]) Glucose 462(C) 70 - 199 mg/dL [facility] ([place]) Comment: Critical Result called by [id number] at 2024-12-26 22:53:28. Result Read Back by gian jimenez Interpretive Data Fasting glucose >/= 126 mg/dl [...] interpretive data was last revised 2022. Calcium 9.6 8.5 - 10.3 mg/dL [facility] ([place]) Bilirubin, total 0.3 0.1 - 1.2 mg/dL [facility] ([place]) Protein, pl 7.0 6.5 - 8.5 g/dL [facility] ([place]) Albumin 3.9 3.5 - 5.0 g/dL [facility] ([place]) Alk phos 124 40 - 130 Units/L [facility] ([place]) ALT 21 7 - 55 Units/L [facility] ([place]) AST 20 10 - 50 Units/L [facility] ([place]) Comment:Hemolysis present. R esults may be affected. Blood 12/26/2024 10:0 9 PM CDT 12/26/2024 10:13 PM CDT us Liam Powell MD LAB BLOOD ORDERABLES Final Res ult [facility] ([place]) 1 [facility] [place] [address] * POCT glucose (12/20/2024 11:53 AM CDT) Glucose, POC 98 70 - 199 mg/dL Blood 12/20/2024 11:5 3 AM CDT 12/20/2024 11:53 AM CDT Luis Langford DO LAB POCT ORDERABLES - DEVICE Final Result [facility] ([place]) 1 [facility] [place] [address] * POCT glucose (12/20/2024 8:03 AM CDT) Glucose, POC 127 70 - 199 mg/dL Blood 12/20/2024 8:03 AM CDT 12/20/2024 8:03 AM CDT Luis Langford DO LAB POCT ORDERABLES - DEVICE Final Result Performing Organization Address City/[facility] Co de Phone Number [facility] ([place]) 1 [facility] [place] [address] * eGFR (12/20/2024 2:24 AM CDT) eGFR >90 >=60 mL/min/1. 73 m2 [...] interpretive data was last reviewed 2021. Blood 12/20/2024 2:24 AM CDT 12/20/2024 3:24 AM CDT Niru Mtz MD LAB BLOOD ORDERABLES Final Re sult [facility] ([place]) 1 [facility] [place] [address] * (ABNORMAL) Basic metabolic panel (12/20/2024 2:24 AM CDT) Sodium 139 135 - 145 mmol/L [facility] ([place]) Potassium, pl 3.8 3.3 - 4.9 mmol/L [facility] ([place]) Chloride 107 97 - 110 mmol/L [facility] ([place]) CO2 21(L) 22 - 32 mmol/L [facility] ([place]) Anion gap 11 2 - 15 mmol/L [facility] ([place]) BUN 17 6 - 25 mg/dL [facility] ([place]) Creatinine 0.81 0.80 - 1.30 mg/dL [facility] ([place]) Glucose 131 70 - 199 mg/dL [facility] ([place]) [...] classification and Diagnosis of Diabetes Diabetes Care 202; 46: S19-S40. Current interpretive data was last revised 2022. Calcium 9.2 8.5 - 10.3 mg/dL [facility] ([place]) Blood 12/20/2024 2:24 AM CDT 12/20/2024 3:24 AM CDT us Niru Mtz MD LAB BLOOD ORDERABLES Final Re sult [facility] ([place]) 1 [facility] [place] [address] * POCT glucose (12/20/2024 1:51 AM CDT) Glucose, POC 140 70 - 199 mg/dL Blood 12/20/2024 1:51 AM CDT 12/20/2024 1:51 AM CDT us Luis Langford DO LAB POCT ORDERABLES - DEVICE Final Result Performing Organization Address [facility] Co de Phone Number [facility] ([place]) 1 [facility] [place] [address] * (ABNORMAL) POCT glucose (12/19/2024 8:17 PM CDT) Glucose, POC 277(H) 70 - 199 mg/dL Blood 12/19/2024 8:17 PM CDT 12/19/2024 8:17 PM CDT us Luis Langford DO LAB POCT ORDERABLES - DEVICE Final Result Performing Organization Address City/[facility]/ZIP Co de Phone Number [facility] ([place]) 1 [facility] [place] [address] * POCT glucose (12/19/2024 5:03 PM CDT) Glucose, POC 165 70 - 199 mg/dL Blood 12/19/2024 5:03 PM CDT 12/19/2024 5:03 PM CDT us Luis Langford DO LAB POCT ORDERABLES - DEVICE Final Result [facility] ([place]) [address] [place] [address] * POCT glucose (12/19/2024 12:00 PM CDT) Glucose, POC 191 70 - 199 mg/dL Blood 12/19/2024 12:0 0 PM CDT 12/19/2024 12:00 PM CDT Luis Langford DO LAB POCT ORDERABLES - DEVICE Final Result [facility] ([place]) 1 [place] [address] * (ABNORMAL) POCT glucose (12/19/2024 7:39 AM CDT) Glucose, POC 209(H) 70 - 199 mg/dL Blood 12/19/2024 7:39 AM CDT 12/19/2024 7:39 AM CDT Luis Langford DO LAB POCT ORDERABLES - DEVICE Final Result Performing Organization Address City/[facility]/ZIP Co de Phone Number [facility] ([place]) 1 [place] [address] * eGFR (12/19/2024 2:11 AM CDT) eGFR >90 >=60 mL/min/1. 73 m2 [...] interpretive data was last reviewed 2021. Blood 12/19/2024 2:11 AM CDT 12/19/2024 2:53 AM CDT us Niru Mtz MD LAB BLOOD ORDERABLES Final Re sult [facility] ([place]) 1 [facility] [place] [address] * (ABNORMAL) Basic metabolic panel (12/19/2024 2:11 AM CDT) Sodium 136 135 - 145 mmol/L [facility] ([place]) Potassium, pl 4.0 3.3 - 4.9 mmol/L [facility] ([place]) Chloride 104 97 - 110 mmol/L [facility] ([place]) CO2 21(L) 22 - 32 mmol/L [facility] ([place]) Anion gap 11 2 - 15 mmol/L [facility] ([place]) BUN 19 6 - 25 mg/dL [facility] ([place]) Creatinine 0.92 0.80 - 1.30 mg/dL [facility] ([place]) Glucose 293(H) 70 - 199 mg/dL [facility] ([place]) [...] interpretive data was last revised 2022. Calcium 9.1 8.5 - 10.3 mg/dL [facility] ([place]) Blood 12/19/2024 2:11 AM CDT 12/19/2024 2:53 AM CDT us Niru Mtz MD LAB BLOOD ORDERABLES Final Re sult Performing Organization Address [facility] Health/ZIP Co de Phone Number NAOMIE GOMEZ ([place]) 1 [facility] [place] [address] [address] * (ABNORMAL) POCT glucose (12/19/2024 1:44 AM CDT) Glucose, POC 292(H) 70 - 199 mg/dL Blood 12/19/2024 1:44 AM CDT 12/19/2024 1:44 AM CDT us Niru Mtz MD LAB POCT ORDERABLES - DEVICE Final Result Performing Organization Address [facility] Co de Phone Number NAOMIE GOMEZ ([place]) 1 [facility] [place] [address] [address] * (ABNORMAL) POCT glucose (12/18/2024 8:48 PM CDT) Glucose, POC 286(H) 70 - 199 mg/dL Blood 12/18/2024 8:48 PM CDT 12/18/2024 8:48 PM CDT us Niru Mtz MD LAB POCT ORDERABLES - DEVICE Final Result Performing Organization Address City/[facility] Co de Phone Number NAOMIE GOMEZ ([place]) 1 [facility] [place] [address] [address] * POCT glucose (12/18/2024 4:44 PM CDT) Glucose, POC 157 70 - 199 mg/dL Blood 12/18/2024 4:44 PM CDT 12/18/2024 4:44 PM CDT us Niru Mtz MD LAB POCT ORDERABLES - DEVICE Final Result Performing Organization Address City/[facility]/ZIP Co de Phone Number NAOMIE GOMEZ ([place]) 1 [facility] [place] [address] [address] * (ABNORMAL) POCT glucose (12/18/2024 12:12 PM CDT) Glucose, POC 201(H) 70 - 199 mg/dL Blood 12/18/2024 12:1 2 PM CDT 12/18/2024 12:12 PM CDT us Niru Mtz MD LAB POCT ORDERABLES - DEVICE Final Result NAOMIE GOMEZ ([place]) 1 [facility] [place] [address] * US VEIN DUPLEX LOWER EXTREMITY LEFT LIMITED, UNILATERAL (12/18/2024 11:12 AM CDT) Anatomical Region Laterality Modality Vascular Left Ultrasound 12/18/2024 4:05 PM CDT Narrative 12/18/2024 4:07 PM CDT EXAM DESCRIPTION: US VEIN DUPLEX LOWER EXTREMITY LEFT LIMITED, UNILATERAL REASON FOR STUDY: left lower extremity swelling, pain, weakness TECHNIQUE: Duplex scan using the B-mode, spectral Doppler, and color-flow Doppler of the deep venous system of the left lower extremity was performed. Images stored on PACS. COMPARISON: 12/01/2024 FINDINGS: The common femoral, common femoral-saphenous vein confluence, visualized profunda femoral, superficial femoral, and popliteal veins are readily compressible with no intraluminal thrombus on jarrell scale images. There is normal color and spectral Doppler signal, including augmentation. Greater saphenous vein appears patent. Visualized calf veins are patent. IMPRESSION: No left lower extremity deep venous thrombosis. THIS IS AN ELECTRONICALLY VERIFIED FINAL REPORT 12/18/2024 4:07 PM - Electronically signed by Fabrizio Peñaloza M.D. KT: NINA Report ID: [id number] Reading Location: [id number] Procedure Note Fabrizio Peñaloza MD - 12/18/2024 EXAM DESCRIPTION: US VEIN DUPLEX LOWER EXTREMITY LEFT LIMITED,UNILATERAL REASON FOR STUDY: left lower extremity swelling, pain, weakness TECHNIQUE: Duplex scan using the B-mode, spectral Doppler, and color-flow Doppler of the deep venous system of the left lower extremity wasperformed. Images stored on PACS. COMPARISON: 12/01/2024 FINDINGS: The common femoral, common femoral-saphenous vein confluence, visualized profunda femoral, superficial femoral, and popliteal veins are readily compressible with no intraluminal thrombus on jarrell scale images. There is normal color and spectral Doppler signal, including augmentation. Greater saphenous vein appears patent. Visualized calf veins are patent. IMPRESSION: No left lower extremity deep venous thrombosis. THIS IS AN ELECTRONICALLY VERIFIED FINAL REPORT 12/18/2024 4:07 PM - Electronically signed by Fabrizio Peñaloza M.D. KT: KT Report ID: [id number] Reading Location: [place] [address] us Rachel Maciel DPM IMG US PROCEDURES Final Res ult * POCT glucose (12/18/2024 8:34 AM CDT) Glucose, POC 168 70 - 199 mg/dL Blood 12/18/2024 8:34 AM CDT 12/18/2024 8:34 AM CDT Niru Mtz MD LAB POCT ORDERABLES - DEVICE Final Result [facility] [place] 1 [facility] [place] [address] * eGFR (12/18/2024 2:09 AM CDT) Pathologist [facility] eGFR >90 >=60 mL/min/1. 73 m2 Comment: [...] interpretive data was last reviewed 2021. Blood 12/18/2024 2:09 AM CDT 12/18/2024 3:30 AM CDT us Niru Mtz MD LAB BLOOD ORDERABLES Final Re sult [facility] ([place]) 1 [facility] [place] [address] * (ABNORMAL) Basic metabolic panel (12/18/2024 2:09 AM CDT) Sodium 138 135 - 145 mmol/L [facility] ([place]) Potassium, pl 4.0 3.3 - 4.9 mmol/L [facility] ([place]) Chloride 108 97 - 110 mmol/L [facility] ([place]) CO2 18(L) 22 - 32 mmol/L [facility] ([place]) Anion gap 12 2 - 15 mmol/L [facility] ([place]) BUN 14 6 - 25 mg/dL [facility] ([place]) Creatinine 0.72(L) 0.80 - 1.30 mg/dL [facility] ([place]) Glucose 185 70 - 199 mg/dL [facility] ([place]) [...] interpretive data was last revised 2022. Calcium 9.3 8.5 - 10.3 mg/dL CULLENTIMMY GOME[facility] ([place]) Blood 12/18/2024 2:09 AM CDT 12/18/2024 3:30 AM CDT Niru Mtz MD LAB BLOOD ORDERABLES Final Re sult NAOMIE GOMEZ ([place]) 1 [facility] [place] [address] * POCT glucose (12/18/2024 1:48 AM CDT) Glucose, POC 183 70 - 199 mg/dL Blood 12/18/2024 1:48 AM CDT 12/18/2024 1:48 AM CDT Niru Mtz MD LAB POCT ORDERABLES - DEVICE Final Result Performing Organization Address [facility] Co de Phone Number NAOMIE GOMEZ ([place]) 1 [facility] [place] [address] * (ABNORMAL) POCT glucose (12/17/2024 8:46 PM CDT) Glucose, POC 283(H) 70 - 199 mg/dL Blood 12/17/2024 8:46 PM CDT 12/17/2024 8:46 PM CDT Niru Mtz MD LAB POCT ORDERABLES - DEVICE Final Result Performing Organization Address City/[facility] Co de Phone Number NAOMIE GOMEZ ([place]) 1 [facility] [place] [address] * (ABNORMAL) POCT glucose (12/17/2024 4:55 PM CDT) Glucose, POC 301(H) 70 - 199 mg/dL Blood 12/17/2024 4:55 PM CDT 12/17/2024 4:55 PM CDT us Niru Mtz MD LAB POCT ORDERABLES - DEVICE Final Result NAOMIE GOMEZ ([place]) 1 [facility] [place] [address] * XR Spine Lumbar 2 or 3 Views (12/17/2024 4:38 PM CDT) Anatomical Region Laterality Modality Spine N/A Computed Radiogr aphy 12/17/2024 10:3 0 PM CDT Narrative 12/17/2024 10:32 PM CDT EXAM DESCRIPTION: XR SPINE LUMBAR 2 OR 3 VIEWS REASON FOR STUDY: left lower extremity weakness left lower extremity weakness Hx of Spine Surgery Compression L5-S1 TECHNIQUE: Frontal, lateral, and spot lateral views of the lumbar spine. COMPARISON: 06/30/2024 FINDINGS: VERTEBRAE: Vertebral bodies are normal in height and alignment. Moderate L4-5 disc disease. OTHER OSSEOUS: Visualized ribs and pelvis unremarkable. SOFT TISSUES: Nonobstructive bowel gas pattern. IMPRESSION: No acute abnormality identified. Moderate L4-5 disc disease with endplate osteophytosis may contribute to neural foraminal/central canal narrowing. THIS IS AN ELECTRONICALLY VERIFIED FINAL REPORT 12/17/2024 10:32 PM - Electronically signed by Valente Lyn M.D. AR: BETITO Report ID: [id number] Reading Location: [id number] Procedure Note Valente Lyn MD - 12/17/2024 EXAM DESCRIPTION: XR SPINE LUMBAR 2 OR 3 VIEWS REASON FOR STUDY: left lower extremity weakness left lower extremity weakness Hx of Spine Surgery Compression L5-S1 TECHNIQUE: Frontal, lateral, and spot lateral views of the lumbarspine. COMPARISON: 06/30/2024 FINDINGS: VERTEBRAE: Vertebral bodies are normal in height and alignment.Moderate L4-5 disc disease. OTHER OSSEOUS: Visualized ribs and pelvis unremarkable. SOFT TISSUES: Nonobstructive bowel gas pattern. IMPRESSION: No acute abnormality identified. Moderate L4-5 disc disease with endplate osteophytosis may contribute to neural foraminal/central canal narrowing. THIS IS AN ELECTRONICALLY VERIFIED FINAL REPORT 12/17/2024 10:32 PM - Electronically signed by Valente Lyn M.D. AR: BETITO Report ID: [id number] Reading Location: [place] [address] Rachel Maciel DPM IMG XR PROCEDURES Final Res ult * (ABNORMAL) POCT glucose (12/17/2024 11:27 AM CDT) Glucose, POC 282(H) 70 - 199 mg/dL Blood 12/17/2024 11:2 7 AM CDT 12/17/2024 11:27 AM CDT Niru Mtz MD LAB POCT ORDERABLES - DEVICE Final Result Performing Organization Address [facility]/ZIP Co de Phone Number [facility] ([place]) 1 [facility] [employer] [place], [place] [id number] * (ABNORMAL) POCT glucose (12/17/2024 7:33 AM CDT) Glucose, POC 222(H) 70 - 199 mg/dL Blood 12/17/2024 7:33 AM CDT 12/17/2024 7:33 AM CDT Niru Mtz MD LAB POCT ORDERABLES - DEVICE Final Result Performing Organization Address City/[facility] Co de Phone Number [facility]IE [facility] ([place]) 1 [facility] [place] [address] * eGFR (12/17/2024 5:21 AM CDT) eGFR >90 >=60 mL/min/1. 73 m2 [...] interpretive data was last reviewed 2021. Blood 12/17/2024 5:21 AM CDT 12/17/2024 5:53 AM CDT us Niru Mtz MD LAB BLOOD ORDERABLES Final Re sult [facility] ([place]) 1 [facility] [place] [address] * Vancomycin level trough (12/17/2024 5:21 AM CDT) Vancomycin trough 13.5 10.0 - 20.0 mcg/mL [facility] ([place]) Blood 12/17/2024 5:21 AM CDT 12/17/2024 5:34 AM CDT us Neri Alvarez MD LAB BLOOD ORDERABLES Fi nal Result [facility] ([place]) 1 [facility] [place] [address] * (ABNORMAL) Basic metabolic panel (12/17/2024 5:21 AM CDT) Sodium 140 135 - 145 mmol/L [facility] ([place]) Potassium, pl 4.3 3.3 - 4.9 mmol/L [facility] ([place]) Chloride 108 97 - 110 mmol/L [facility] ([place]) CO2 17(L) 22 - 32 mmol/L [facility] ([place]) Anion gap 15 2 - 15 mmol/L [facility] ([place]) BUN 19 6 - 25 mg/dL [facility] ([place]) Creatinine 0.79(L) 0.80 - 1.30 mg/dL [facility] ([place]) Glucose 228(H) 70 - 199 mg/dL [facility] ([place]) Comment: Interpretive Data Fasting glucose >/= [...] interpretive data was last revised 2022. Calcium 9.3 8.5 - 10.3 mg/dL [facility] ([place]) Blood 12/17/2024 5:21 AM CDT 12/17/2024 5:53 AM CDT Niru Mtz MD LAB BLOOD ORDERABLES Final Re sult Performing Organization Address City/[facility]/ZIP Co de Phone Number NAOMIE GOMEZ ([place]) 1 [facility] [place] [address] * (ABNORMAL) POCT glucose (12/17/2024 1:59 AM CDT) Glucose, POC 256(H) 70 - 199 mg/dL Blood 12/17/2024 1:59 AM CDT 12/17/2024 1:59 AM CDT Niru Mtz MD LAB POCT ORDERABLES - DEVICE Final Result Performing Organization Address City/[facility]/ZIP Co de Phone Number NAOMIE GOMEZ ([place]) 1 [place] [address] * (ABNORMAL) POCT glucose (12/16/2024 8:45 PM CDT) Glucose, POC 285(H) 70 - 199 mg/dL Comment:Glu2: RN/MD Notified Blood 12/16/2024 8:45 PM CDT 12/16/2024 8:45 PM CDT Niru Mtz MD LAB POCT ORDERABLES - DEVICE Final Result [facility] ([place]) 1 [place] [address] * (ABNORMAL) POCT glucose (12/16/2024 5:02 PM CDT) Glucose, POC 356(H) 70 - 199 mg/dL Blood 12/16/2024 5:02 PM CDT 12/16/2024 5:02 PM CDT Niru Mtz MD LAB POCT ORDERABLES - DEVICE Final Result Performing Organization Address City/[facility]/ZIP Co de Phone Number [facility] ([place]) 1 [facility] [place] [address] * (ABNORMAL) POCT glucose (12/16/2024 11:37 AM CDT) Glucose, POC 356(H) 70 - 199 mg/dL Blood 12/16/2024 11:3 7 AM CDT 12/16/2024 11:37 AM CDT Niru Mtz MD LAB POCT ORDERABLES - DEVICE Final Result [facility] ([place]) 1 [facility] [place] [address] * (ABNORMAL) POCT glucose (12/16/2024 7:48 AM CDT) [facility] Glucose, POC 314(H) 70 - 199 mg/dL Blood 12/16/2024 7:48 AM CDT 12/16/2024 7:48 AM CDT us Niru Mtz MD LAB POCT ORDERABLES - DEVICE Final Result Performing Organization Address City/[facility]/ZIP Co de Phone Number NAOMIE GOMEZ ([place]) [address] [place] [address] [place] [address] * eGFR (12/16/2024 2:14 AM CDT) [facility] eGFR >90 >=60 mL/min/1. 73 m2 Comment: [...] interpretive data was last reviewed 2021. Blood 12/16/2024 2:14 AM CDT 12/16/2024 3:17 AM CDT us Neri Alvarez MD LAB BLOOD ORDERABLES Fi nal Result NAOMIE GOMEZ ([place]) 1 [facility] [place] [address] * Differential, auto (12/16/2024 2:14 AM CDT) Neutrophil abs 4.30 1.50 - 6.50 K/cumm Imm gran abs 0.03 0.00 - 0.10 K/cumm [facility] ([place]) Lymphocyte abs 2.58 0.80 - 3.30 K/cumm [facility] ([place]) Monocyte abs 0.50 0.20 - 0.80 K/cumm [facility] ([place]) Eosinophil abs 0.23 0.00 - 0.50 K/cumm [facility] ([place]) Basophil abs 0.06 0.00 - 0.10 K/cumm [facility] ([place]) Neutrophil pct 55.8 % [facility] ([place]) Comment: Interpretive Data Percent cell count reference ranges are not reported, since discordance with absolute values may lead to misinterpretation of CBC data. Current Interpretive Data was last revised on 2017. Imm gran pct 0.4 % [facility] ([place]) Comment: Interpretive Data Percent cell count reference ranges are not reported, since discordance with absolute values may lead to misinterpretation of CBC data. Current Interpretive Data was last revised on 2017. Lymphocyte pct 33.5 % [facility] ([place]) Comment: Interpretive Data Percent cell count reference ranges are not reported, since discordance with absolute values may lead to misinterpretation of CBC data. Current Interpretive Data was last revised on 2017. Monocyte pct 6.5 % [facility] ([place]) Comment: Interpretive Data Percent cell count reference ranges are not reported, since discordance with absolute values may lead to misinterpretation of CBC data. Current Interpretive Data was last revised on 2017. Eosinophil pct 3.0 % [facility] ([place]) Comment: Interpretive Data Percent cell count reference ranges are not reported, since discordance with absolute values may lead to misinterpretation of CBC data. Current Interpretive Data was last revised on 2017. Basophil pct 0.8 % [facility] ([place]) Comment: Interpretive Data Percent cell count reference ranges are not reported, since discordance with absolute values may lead to misinterpretation of CBC data. Current Interpretive Data was last revised on 2017. Blood 12/16/2024 2:14 AM CDT 12/16/2024 3:17 AM CDT us Neri Alvarez MD LAB BLOOD ORDERABLES Fi nal Result [facility] ([place]) 1 [facility] [employer] [place] [address] * (ABNORMAL) CBC with auto differential (12/16/2024 2:14 AM CDT) WBC 7.70 3.80 - 9.90 K/cumm Hgb 12.6(L) 13.0 - 17.5 g/dL [facility] ([place]) Hct 36.4(L) 38.9 - 50.3 % [facility] ([place]) Plt 229 150 - 400 K/cumm [facility] ([place]) MPV 11.0 9.1 - 12.3 fL [facility] ([place]) RBC 4.28(L) 4.30 - 5.80 M/cumm [facility] ([place]) MCV 85.0 81.3 - 96.4 fL [facility] ([place]) MCH 29.4 27.1 - 33.3 pg [facility] ([place]) MCHC 34.6 32.3 - 35.7 g/dL [facility] ([place]) RDW CV 13.5 11.1 - 14.9 % [facility] ([place]) RDW SD 41.1 35.7 - 48.1 fL [facility] ([place]) NRBC abs 0.00 0.00 - 0.01 K/cumm [facility] ([place]) Blood 12/16/2024 2:14 AM CDT 12/16/2024 3:17 AM CDT us Neri Alvarez MD LAB BLOOD ORDERABLES Fi nal Result [facility] ([place]) 1 [facility] [employer] [place] [address] * Magnesium (12/16/2024 2:14 AM CDT) Magnesium 1.9 1.4 - 2.5 mg/dL [facility] ([place]) Blood 12/16/2024 2:14 AM CDT 12/16/2024 3:17 AM CDT us Neri Alvarez MD LAB BLOOD ORDERABLES Fi nal Result [facility] ([place]) 1 [facility] [place] [address] * (ABNORMAL) Comprehensive metabolic panel (12/16/2024 2:14 AM CDT) Sodium 135 135 - 145 mmol/L [facility] ([place]) Potassium, pl 4.0 3.3 - 4.9 mmol/L [facility] ([place]) Chloride 105 97 - 110 mmol/L [facility] ([place]) CO2 17(L) 22 - 32 mmol/L [facility] ([place]) Anion gap 13 2 - 15 mmol/L [facility] ([place]) BUN 25 6 - 25 mg/dL [facility] ([place]) Creatinine 0.82 0.80 - 1.30 mg/dL [facility] ([place]) Glucose 310(H) 70 - 199 mg/dL [facility] ([place]) [...] classification and Diagnosis of Diabetes Diabetes Care 202; 46: S19-S40. Current interpretive data was last revised 2022. Calcium 9.1 8.5 - 10.3 mg/dL [facility] ([place]) Bilirubin, total 0.4 0.1 - 1.2 mg/dL [facility] ([place]) Protein, pl 6.6 6.5 - 8.5 g/dL [facility] ([place]) Albumin 3.5 3.5 - 5.0 g/dL [facility] ([place]) Alk phos 110 40 - 130 Units/L [facility] ([place]) ALT 15 7 - 55 Units/L [facility] ([place]) AST 15 10 - 50 Units/L [facility] ([place]) Blood 12/16/2024 2:14 AM CDT 12/16/2024 3:17 AM CDT us Neri Alvarez MD LAB BLOOD ORDERABLES Fi nal Result NAOMIE [facility] ([place]) 1 [facility] [place] [address] * (ABNORMAL) POCT glucose (12/16/2024 1:55 AM CDT) Glucose, POC 287(H) 70 - 199 mg/dL Blood 12/16/2024 1:55 AM CDT 12/16/2024 1:55 AM CDT us Niru Mtz MD LAB POCT ORDERABLES - DEVICE Final Result Performing Organization Address City/[facility]/ZIP Co de Phone Number NAOMIE GOMEZ ([place]) 1 [facility] [place] [address] * (ABNORMAL) POCT glucose (12/15/2024 8:32 PM CDT) Glucose, POC 362(H) 70 - 199 mg/dL Blood 12/15/2024 8:32 PM CDT 12/15/2024 8:32 PM CDT us Niru Mtz MD LAB POCT ORDERABLES - DEVICE Final Result Performing Organization Address City/[facility]/ZIP Co de Phone Number NAOMIE GOMEZ ([place]) 1 [facility] [place] [address] * (ABNORMAL) POCT glucose (12/15/2024 5:00 PM CDT) Glucose, POC 339(H) 70 - 199 mg/dL Blood 12/15/2024 5:00 PM CDT 12/15/2024 5:00 PM CDT Niru Mtz MD LAB POCT ORDERABLES - DEVICE Final Result Performing Organization Address City/[facility]/ZIP Co de Phone Number NAOMIE GOMEZ ([place]) 1 [facility] [place] [address] * (ABNORMAL) POCT glucose (12/15/2024 2:21 PM CDT) Glucose, POC 375(H) 70 - 199 mg/dL Blood 12/15/2024 2:21 PM CDT 12/15/2024 2:21 PM CDT us Jh Cheema MD LAB POCT ORDERABLES - DEVICE Final Result Performing Organization Address [facility] Co de Phone Number NAOMIE [facility] ([place]) 1 [facility] [place] [address] * XR Foot Left 3 or More Views (12/15/2024 2:05 PM CDT) Anatomical Region Laterality Modality Lower Extremities, Foot Left Computed Radiography 12/15/2024 2:32 PM CDT Narrative 12/15/2024 2:36 PM CDT EXAM DESCRIPTION: XR FOOT LEFT 3 OR MORE VIEWS REASON FOR STUDY: pain c/o a wound to the left foot x 3 years. Pt reports he had surgery on it last week for osteomyelitis. Pt reports he cannot care for the wound without help and has been alone for the last 3 days. Pt leg now swollen and hot to the touch. Pt reports fevers for the last 2 days. Pt reports he is unable to care for himself at home. His caregiver left him. TECHNIQUE: 3 radiographic view(s) of the left foot. COMPARISON: 05/31/2024 FINDINGS: BONES/JOINTS: Status post resection of the distal 4th and 5th metatarsal. No acute displaced fracture. Scattered degenerative changes. Calcaneal enthesopathic changes. SOFT TISSUES: Edema overlying the lateral foot/5th metatarsal. Vascular calcifications. IMPRESSION: 1. Status post resection of the distal 4th and 5th metatarsal. No acute displaced fracture. 2. Edema overlying the lateral foot/5th metatarsal. THIS IS AN ELECTRONICALLY VERIFIED FINAL REPORT 12/15/2024 2:36 PM - Electronically signed by Tenzin Lizama M.D. NS: NS Report ID: [id number] Reading Location: [id number] Procedure Note Tenzin Lizama MD - 12/15/2024 EXAM DESCRIPTION: XR FOOT LEFT 3 OR MORE VIEWS REASON FOR STUDY: pain c/o a wound to the left foot x 3 years. Pt reports he had surgery on itlast week for osteomyelitis. Pt reports he cannot care for the wound withouthelp and has been alone for the last 3 days. Pt leg now swollen and hot to the touch. Pt reports fevers for the last 2 days. Pt reports he is unable to care for himself at home. His caregiver left him. TECHNIQUE: 3 radiographic view(s) of the left foot. COMPARISON: 05/31/2024 FINDINGS: BONES/JOINTS: Status post resection of the distal 4th and 5th metatarsal.No acute displaced fracture. Scattered degenerative changes. Calcaneal enthesopathic changes. SOFT TISSUES: Edema overlying the lateral foot/5th metatarsal. Vascular calcifications. IMPRESSION: 1. Status post resection of the distal 4th and 5th metatarsal. No acute displaced fracture. 2. Edema overlying the lateral foot/5th metatarsal. THIS IS AN ELECTRONICALLY VERIFIED FINAL REPORT 12/15/2024 2:36 PM - Electronically signed by Tenzin Lizama M.D. NS: NS Report ID: [id number] Reading Location: [id number] Jh Cheema MD IMG XR PROCEDURES Final Resu lt * Blood culture Blood (12/15/2024 2:00 PM CDT) Report Final Report: No growth Comment:Testing performed by : [facility], [address], [place]., [address] Blood 12/15/2024 2:00 PM CDT 12/15/2024 7:03 PM CDT Narrative [facility] ([place]) - 12/20/2024 7:00 AM CDT 1. Blood cultures are incubated for 4 days on a continuously monitored blood culture system. The first report of a negative culture is issued within 24 hours of receipt of the specimen in the laboratory. 2. Positive culture results are reported as soon as they are detected. 3. The most important factor for detection of microbes in the setting of bloodstream infection is the volume of blood submitted for culture. Failure to collect an optimal blood volume can result in false negative blood cultures. 4. For pediatric patients, the recommended blood volume to collect follows a weight based strategy. See the electronic test catalog for collection instructions. 5. For positive blood cultures, a rapid molecular test may be performed for organism identification using the [employer] blood culture identification panel for gram positive (BCID-GP) and gram negative (BCID-GN) organisms. This nucleic acid amplification test detects microbial DNA in positive blood culture broth. This assay has been cleared by the [place] Food and Drug Administration and its performance characteristics have been verified by the [facility]. For questions about this culture, contact the Microbiology Laboratory at [phone]. Interpretive data was last revised on 24. Jh hCeema MD LAB MICROBIOLOGY - GENERAL O RDERABLES Final Result [facility] ([place]) 1 [facility] [place] [address] * eGFR (12/15/2024 1:40 PM CDT) eGFR >90 >=60 mL/min/1. 73 [...] of Race in Diagnosing Kidney Disease, JASN 202). The CKD-EPI equation should not be used for patients with unstable renal function and has not been validated in children and those over 70. Current interpretive data was last reviewed 2021. Blood 12/15/2024 1:40 PM CDT 12/15/2024 1:45 PM CDT us Jh Cheema MD LAB BLOOD ORDERABLES Final R esult [facility] ([place]) 1 [facility] [place] [address] * Differential, auto (12/15/2024 1:40 PM CDT) Neutrophil abs 5.09 1.50 - 6.50 K/cumm Imm gran abs 0.04 0.00 - 0.10 K/cumm [facility] ([place]) Lymphocyte abs 2.01 0.80 - 3.30 K/cumm [facility] ([place]) Monocyte abs 0.54 0.20 - 0.80 K/cumm [facility] ([place]) Eosinophil abs 0.16 0.00 - 0.50 K/cumm [facility] ([place]) Basophil abs 0.06 0.00 - 0.10 K/cumm [facility] ([place]) Neutrophil pct 64.5 % [facility] ([place]) Comment: Interpretive Data Percent cell count reference ranges are not reported, since discordance with absolute values may lead to misinterpretation of CBC data. Current Interpretive Data was last revised on 2017. Imm gran pct 0.5 % [facility] ([place]) Comment: Interpretive Data Percent cell count reference ranges are not reported, since discordance with absolute values may lead to misinterpretation of CBC data. Current Interpretive Data was last revised on 2017. Lymphocyte pct 25.4 % [facility] ([place]) Comment: Interpretive Data Percent cell count reference ranges are not reported, since discordance with absolute values may lead to misinterpretation of CBC data. Current Interpretive Data was last revised on 2017. Monocyte pct 6.8 % [facility] ([place]) Comment: Interpretive Data Percent cell count reference ranges are not reported, since discordance with absolute values may lead to misinterpretation of CBC data. Current Interpretive Data was last revised on 2017. Eosinophil pct 2.0 % [facility] ([place]) Comment: Interpretive Data Percent cell count reference ranges are not reported, since discordance with absolute values may lead to misinterpretation of CBC data. Current Interpretive Data was last revised on 2017. Basophil pct 0.8 % [facility] ([place]) Comment: Interpretive Data Percent cell count reference ranges are not reported, since discordance with absolute values may lead to misinterpretation of CBC data. Current Interpretive Data was last revised on 2017. Blood 12/15/2024 1:40 PM CDT 12/15/2024 1:45 PM CDT Jh Cheema MD LAB BLOOD ORDERABLES Final R esult [facility] ([place]) 1 [facility] Department [place] [address] * CBC with auto differential (12/15/2024 1:40 PM CDT) WBC 7.90 3.80 - 9.90 K/cumm Hgb 13.7 13.0 - 17.5 g/dL [facility] ([place]) Hct 39.1 38.9 - 50.3 % [facility] ([place]) Plt 232 150 - 400 K/cumm [facility] ([place]) MPV 10.7 9.1 - 12.3 fL [facility] ([place]) RBC 4.62 4.30 - 5.80 M/cumm [facility] ([place]) MCV 84.6 81.3 - 96.4 fL [facility] ([place]) MCH 29.7 27.1 - 33.3 pg [facility] ([place]) MCHC 35.0 32.3 - 35.7 g/dL [facility] ([place]) RDW CV 13.3 11.1 - 14.9 % [facility] ([place]) RDW SD 41.0 35.7 - 48.1 fL [facility] ([place]) NRBC abs 0.00 0.00 - 0.01 K/cumm [facility] ([place]) Blood 12/15/2024 1:40 PM CDT 12/15/2024 1:45 PM CDT Jh Cheema MD LAB BLOOD ORDERABLES Final R esult [facility] ([place]) 1 [facility] Department [place] [address] * Blood culture Blood (12/15/2024 1:40 PM CDT) Report Final Report: No growth Comment:Testing performed by : [facility], [address] [facility], [place]., [address] Blood 12/15/2024 1:40 PM CDT 12/15/2024 7:03 PM CDT Narrative [facility] ([place]) - 12/20/2024 7:00 AM CDT 1. Blood cultures are incubated for 4 days on a continuously monitored blood culture system. The first report of a negative culture is issued within 24 hours of receipt of the specimen in the laboratory. 2. Positive culture results are reported as soon as they are detected. 3. The most important factor for detection of microbes in the setting of bloodstream infection is the volume of blood submitted for culture. Failure to collect an optimal blood volume can result in false negative blood cultures. 4. For pediatric patients, the recommended blood volume to collect follows a weight based strategy. See the electronic test catalog for collection instructions. 5. For positive blood cultures, a rapid molecular test may be performed for organism identification using the [facility] ePlex blood culture identification panel for gram positive (BCID-GP) and gram negative (BCID-GN) organisms. This nucleic acid amplification test detects microbial DNA in positive blood culture broth. This assay has been cleared by the [place] Food and Drug Administration and its performance characteristics have been verified by the [facility]. For questions about this culture, contact the Microbiology Laboratory at [phone]. Interpretive data was last revised on 24. Jh Cheema MD LAB MICROBIOLOGY - GENERAL O RDERABLES Final Result Performing Organization Address [facility] Co de Phone Number [facility] ([place]) 1 [facility] [place] [address] * (ABNORMAL) Erythrocyte sedimentation rate (12/15/2024 1:40 PM CDT) Erythrocyte sedimentation rate 27(H) 1 - 15 mm/hr Blood 12/15/2024 1:40 PM CDT 12/15/2024 1:45 PM CDT Jh Cheema MD LAB BLOOD ORDERABLES Final R esult Performing Organization Address [facility] de Phone Number [facility] ([place]) 1 [place] [address] * CRP (acute phase) (12/15/2024 1:40 PM CDT) CRP 4.7 <=10.0 mg/L [facility] ([place]) Blood 12/15/2024 1:40 PM CDT 12/15/2024 1:45 PM CDT Jh Cheema MD LAB BLOOD ORDERABLES Final R esult Performing Organization Address [facility] Co de Phone Number [facility] ([place]) 1 [facility] [place] [address] * Ethanol (12/15/2024 1:40 PM CDT) Ethanol <10 <=10 mg/dL [facility] ([place]) Comment: Interpretive Data Legal limit of intoxication > or = 80 mg/dL Levels > or = 400 mg/dL are potentially TOXIC. Current interpretive data was last revised on 2018. Blood 12/15/2024 1:40 PM CDT 12/15/2024 1:45 PM CDT us Jh Cheema MD LAB BLOOD ORDERABLES Final R esult [facility] ([place]) 1 [facility] [place] [address] * (ABNORMAL) Comprehensive metabolic panel (12/15/2024 1:40 PM CDT) Sodium 135 135 - 145 mmol/L [facility] ([place]) Potassium, pl 4.2 3.3 - 4.9 mmol/L [facility] ([place]) Chloride 102 97 - 110 mmol/L [facility] ([place]) CO2 19(L) 22 - 32 mmol/L [facility] ([place]) Anion gap 14 2 - 15 mmol/L [facility] ([place]) BUN 31(H) 6 - 25 mg/dL [facility] ([place]) Creatinine 0.75(L) 0.80 - 1.30 mg/dL [facility] ([place]) Glucose 435(H) 70 - 199 mg/dL [facility] ([place]) [...] classification and Diagnosis of Diabetes Diabetes Care 202; 46: S19-S40. Current interpretive data was last revised 2022. Calcium 9.9 8.5 - 10.3 mg/dL [facility] ([place]) Bilirubin, total 0.6 0.1 - 1.2 mg/dL [facility] ([place]) Protein, pl 7.4 6.5 - 8.5 g/dL [facility] ([place]) Albumin 3.8 3.5 - 5.0 g/dL [facility] ([place]) Alk phos 128 40 - 130 Units/L [facility] ([place]) ALT 18 7 - 55 Units/L [facility] ([place]) AST 10 10 - 50 Units/L [facility] ([place]) Blood 12/15/2024 1:40 PM CDT 12/15/2024 1:45 PM CDT us Jh Cheema MD LAB BLOOD ORDERABLES Final R esult [facility] ([place] 1 [facility] [place] [address] * (ABNORMAL) POCT glucose (12/06/2024 4:35 PM CDT) Glucose, POC 211(H) 70 - 199 mg/dL Blood 12/06/2024 4:35 PM CDT 12/06/2024 4:35 PM CDT us Lucy Grimm MD LAB POCT ORDERABLES - DEVICE Fi nal Result Performing Organization Address [facility]/ZIP Co de Phone Number [facility] ([place]) 1 [facility] [place] [address] * (ABNORMAL) POCT glucose (12/06/2024 11:35 AM CDT) Glucose, POC 308(H) 70 - 199 mg/dL Blood 12/06/2024 11:3 5 AM CDT 12/06/2024 11:35 AM CDT Lucy Grimm MD LAB POCT ORDERABLES - DEVICE Fi nal Result Performing Organization Address City/[facility]/ZIP Co de Phone Number [facility] ([place]) 1 [facility] [place] [address] * (ABNORMAL) POCT glucose (12/06/2024 7:42 AM CDT) Glucose, POC 307(H) 70 - 199 mg/dL Blood 12/06/2024 7:42 AM CDT 12/06/2024 7:42 AM CDT Lucy Grimm MD LAB POCT ORDERABLES - DEVICE Fi nal Result [facility] ([place] 1 [facility] [place] [address] * (ABNORMAL) POCT glucose (12/06/2024 5:40 AM CDT) Glucose, POC 319(H) 70 - 199 mg/dL Blood 12/06/2024 5:40 AM CDT 12/06/2024 5:40 AM CDT Lucy Grimm MD LAB POCT ORDERABLES - DEVICE Fi nal Result Performing Organization Address City/[facility]/ZIP Co de Phone Number [facility] ([place]) 1 [facility] [place] [address] * eGFR (12/06/2024 5:33 AM CDT) eGFR >90 >=60 mL/min/1. 73 m2 [...] interpretive data was last reviewed 2021. Blood 12/06/2024 5:33 AM CDT 12/06/2024 6:07 AM CDT us Lucy Grimm MD LAB BLOOD ORDERABLES Final Resu lt [facility] ([place]) 1 [facility] [place] [address] * (ABNORMAL) Differential, auto (12/06/2024 5:33 AM CDT) Neutrophil abs 5.43 1.50 - 6.50 K/cumm Imm gran abs 0.34(H) 0.00 - 0.10 K/cumm [facility] ([place]) Lymphocyte abs 1.83 0.80 - 3.30 K/cumm [facility] ([place]) Monocyte abs 0.72 0.20 - 0.80 K/cumm [facility] ([place]) Eosinophil abs 0.22 0.00 - 0.50 K/cumm [facility] ([place]) Basophil abs 0.06 0.00 - 0.10 K/cumm [facility] ([place]) Neutrophil pct 63.0 % [facility] ([place]) Comment: Interpretive Data Percent cell count reference ranges are not reported, since discordance with absolute values may lead to misinterpretation of CBC data. Current Interpretive Data was last revised on 2017. Imm gran pct 4.0 % [facility] ([place]) Comment: Interpretive Data Percent cell count reference ranges are not reported, since discordance with absolute values may lead to misinterpretation of CBC data. Current Interpretive Data was last revised on 2017. Lymphocyte pct 21.3 % [facility] ([place]) Comment: Interpretive Data Percent cell count reference ranges are not reported, since discordance with absolute values may lead to misinterpretation of CBC data. Current Interpretive Data was last revised on 2017. Monocyte pct 8.4 % [facility] ([place]) Comment: Interpretive Data [...] was last revised on 2017. Basophil pct 0.7 % [facility] ([place]) Comment: Interpretive Data Percent cell count reference ranges are not reported, since discordance with absolute values may lead to misinterpretation of CBC data. Current Interpretive Data was last revised on 2017. Blood 12/06/2024 5:33 AM CDT 12/06/2024 6:07 AM CDT us Lucy Grimm MD LAB BLOOD ORDERABLES Final Resu lt [facility] ([place]) 1 [facility] [place] [address] * (ABNORMAL) CBC with auto differential (12/06/2024 5:33 AM CDT) WBC 8.60 3.80 - 9.90 K/cumm Hgb 12.0(L) 13.0 - 17.5 g/dL [facility] ([place]) Hct 34.6(L) 38.9 - 50.3 % [facility] ([place]) Plt 243 150 - 400 K/cumm [facility] ([place]) MPV 10.4 9.1 - 12.3 fL [facility] ([place]) RBC 3.98(L) 4.30 - 5.80 M/cumm [facility] ([place]) MCV 86.9 81.3 - 96.4 fL [facility] ([place]) MCH 30.2 27.1 - 33.3 pg [facility] ([place]) MCHC 34.7 32.3 - 35.7 g/dL [facility] ([place]) RDW CV 13.0 11.1 - 14.9 % [facility] ([place]) RDW SD 40.6 35.7 - 48.1 fL [facility] ([place]) NRBC abs 0.00 0.00 - 0.01 K/cumm [facility] ([place]) Blood 12/06/2024 5:33 AM CDT 12/06/2024 6:07 AM CDT Lucy Grimm MD LAB BLOOD ORDERABLES Final Resu lt [facility] ([place]) 1 [facility] [place] [address] * (ABNORMAL) Phosphorus (12/06/2024 5:33 AM CDT) Phosphorus, pl 2.1(L) 2.3 - 4.5 mg/dL [facility] ([place]) Blood 12/06/2024 5:3 3 AM CDT 12/06/2024 6:07 AM CDT Lucy Grimm MD LAB BLOOD ORDERABLES Final Resu lt [facility] ([place]) 1 [facility] [place] [address] * Magnesium (12/06/2024 5:33 AM CDT) Magnesium 1.8 1.4 - 2.5 mg/dL [facility]) Blood 12/06/2024 5:33 AM CDT 12/06/2024 6:07 AM CDT Lucy Grimm MD LAB BLOOD ORDERABLES Final Resu lt [facility] ([place]) 1 [facility] [place] [address] * (ABNORMAL) Basic metabolic panel (12/06/2024 5:33 AM CDT) Sodium 134(L) 135 - 145 mmol/L [facility] ([place]) Potassium, pl 4.0 3.3 - 4.9 mmol/L [facility] ([place]) Chloride 103 97 - 110 mmol/L [facility] ([place]) CO2 20(L) 22 - 32 mmol/L [facility] ([place]) Anion gap 11 2 - 15 mmol/L [facility] ([place]) BUN 17 6 - 25 mg/dL [facility] ([place]) Creatinine 0.82 0.80 - 1.30 mg/dL [facility] ([place]) Glucose 330(H) 70 - 199 mg/dL [facility] ([place]) Comment: Interpretive Data Fasting glucose >/= [...] interpretive data was last revised 2022. Calcium 8.9 8.5 - 10.3 mg/dL [facility] ([place]) Blood 12/06/2024 5:33 AM CDT 12/06/2024 6:07 AM CDT us Lucy Grimm MD LAB BLOOD ORDERABLES Final Resu lt [facility] ([place]) 1 [facility] [place] [address] * (ABNORMAL) POCT glucose (12/06/2024 2:24 AM CDT) [facility] Signature Glucose, POC 378(H) 70 - 199 mg/dL Comment:Glu2: RN/ Notified Blood 12/06/2024 2:24 AM CDT 12/06/2024 2:24 AM CDT Lucy Grimm MD LAB POCT ORDERABLES - DEVICE Fi nal Result Performing Organization Address [facility]/ZIP Co de Phone Number [facility]) 1 [facility] [place] [address] * (ABNORMAL) POCT glucose (12/05/2024 11:22 PM CDT) Glucose, POC 316(H) 70 - 199 mg/dL Comment:Glu2: RN/MD Notified Blood 12/05/2024 11:2 2 PM CDT 12/05/2024 11:22 PM CDT us Lucy Grimm MD LAB POCT ORDERABLES - DEVICE Fi nal Result Performing Organization Address [facility] Co de Phone Number [facility] ([place] 1 [facility] [place] [address] * (ABNORMAL) Vancomycin level trough (12/05/2024 11:01 PM CDT) Vancomycin trough 21.3(H) 10.0 - 20.0 mcg/mL [facility]) Blood 12/05/2024 11:0 1 PM CDT 12/05/2024 11:02 PM CDT us Lucy Grimm MD LAB BLOOD ORDERABLES Final Resu lt Performing Organization Address [facility] Co de Phone Number [facility] ([place]) 1 [facility] [place] [address] * (ABNORMAL) POCT glucose (12/05/2024 8:51 PM CDT) Glucose, POC 345(H) 70 - 199 mg/dL Blood 12/05/2024 8:51 PM CDT 12/05/2024 8:51 PM CDT us Lucy Grimm MD LAB POCT ORDERABLES - DEVICE Fi nal Result Performing Organization Address [facility]/ZIP Co de Phone Number [facility] ([place]) 1 [facility] [place] [address] * POCT glucose (12/05/2024 4:30 PM CDT) Glucose, POC 121 70 - 199 mg/dL Blood 12/05/2024 4:30 PM CDT 12/05/2024 4:30 PM CDT Lucy Grimm MD LAB POCT ORDERABLES - DEVICE Fi nal Result [facility] ([place] 1 [facility] [place] [address] * Surgical pathology (12/05/2024 1:27 PM CDT) Tissue (Bone - Biopsy / Curettings) 12/05/2024 12:39 PM CDT Narrative [facility] - 12/11/2024 12:58 PM CDT EPIC results best viewed via link to PDF [facility] Department of Pathology [address] [place] [id number] Note to Patients: This report may contain a detailed description of human tissue sent by a health care provider to the laboratory for pathologic evaluation. The content of this report is essential for diagnosis and may provide important critical findings. This information may be unfamiliar to patients to review without a medical professional present. It is advised that the patient review this report in the presence of a health care provider who can answer questions and explain the details. Final Report Patient Name: KIMBERLY PALMER Address: [facility] [address], [place] [address] Gender: M : 1985 (Age: 38) Service: Medical Location: [facility] Hospital #: [id number] Patient Type: [facility] Taken: 12/05/2024 Received: 12/05/2024 Accessioned: 12/05/2024 Reported: 12/11/2024 Physician(s):Sandie Ramirez DPM Diagnosis: Fifth bone metatarsal, resection -Fibrous tissue adjacent to bone with focal acute inflammatory cells -See description Victor Hugo Jama MD PhD Report Electronically Reviewed and Signed Out By Victor Hugo Jama MD PhD 12/11/2024 12:58:25 Specimen(s) Received: A: Fifth bone metatarsal Microscopic Description: Sections from the fifth bone metatarsal specimen show fibrous tissue and bone with bony trabeculae and remodeling type changes. The interstitial spaces show adipocytes and focal small lymphocytes and plasma cells. A rare neutrophil is seen. Fibrous tissue adjacent to bony trabeculae is present with the fibrous tissue demonstrating focal acute inflammatory cells. Given the presence of a rare neutrophil and adjacent acute inflammation, acute osteomyelitis can not be excluded though a definitive acute inflammatory infiltrate within the interstitial spaces of bone is not demonstrated in the sections. Clinical/radiographic correlation and close continued follow-up are recommended. Clinical History: Acute osteomyelitis of left foot. Resection infected bone. Gross Description: The specimen is submitted in a single formalin filled container labeled KIMBERLY GONDEK and fifth bone metatarsal. It is 2 bone segments. The larger is 1.8 x 1.2 x 1.1 cm. 1 surface is flat and viable appearing the opposing surface is articular. The second segment of bone is somewhat irregular, vaguely hemorrhagic appearing, 1.7 x 0.8 x 0.7 cm. What appears to be the margin of each is inked. The sectioned and entirely submitted following decalcification Misa Woodruff/Emily Garcia M.D. REPORT IMAGES AND SCANNED DOCUMENTS, IF INCLUDED, ONLY VIEWABLE IN PDF VERSION OF REPORT The performance characteristics of some immunohistochemical stains, fluorescence in-situ hybridization tests and immunophenotyping by flow cytometry cited in this report (if any) were determined by the Surgical Pathology Department at [facility] as part of an ongoing quality head program and in compliance with federally mandated regulations drawn from the Clinical Laboratory Improvement Act of 1988 (CLIA '88). Some of these tests rely on the use of analyte specific reagents and are subject to specific labeling requirements by the US Food and Drug Administration. Such diagnostic tests may only be performed in a facility that is certified by the Department of Health and Human Services as a high complexity laboratory under CLIA '88. The FDA has determined that such clearance or approval is not necessary. This test is used for clinical purposes. It should not be regarded as investigational or for research. Nevertheless, federal rules concerning the medical use of analyte specific reagents require that the following disclaimer be attached to the report: This test was developed and its performance characteristics determined by the Surgical Pathology Department [facility]. It has not been cleared or approved by the U. S. Food and Drug Administration. Note for decalcified specimens: This assay has not been validated on decalcified tissues. Results should be interpreted with caution given the possibility of false negativity on decalcified specimens Sandie Ramirez DPM LAB PATHOLOGY ORDERABLES Fi nal Result Performing Organization Address [facility] Co de Phone Number [facility] ([place] 1 [place] [address] * POCT glucose (12/05/2024 1:01 PM CDT) Glucose, POC 148 70 - 199 mg/dL Blood 12/05/2024 1:01 PM CDT 12/05/2024 1:01 PM CDT Lucy Grimm MD LAB POCT ORDERABLES - DEVICE Fi nal Result Performing Organization Address [facility] de Phone Number [facility] Department [place] [address] * NC AN ELECTIVE SUPRAGLOTTIC AIRWAY (12/05/2024 12:27 PM CDT) Narrative Deepak Olmos CRNA - 12/05/2024 12:27 PM CDT Deepak Olmos CRNA 12/05/2024 12:28 PM Airway Patient location: OR Urgency: elective Date/time: 12/05/2024 12:19 PM Indications for airway management: anesthesia Difficult airway: no Staff: Placed by: SPINDLE SETTER: Deepak Olmos CRNA Emergent airway documentation: Risks and benefits discussed: yes Consent obtained: yes Consent given by: patient Airway prep: Preoxygenated: yes Mask difficulty assessment: 0 - not attempted Spontaneous ventilation during airway: absent Sedation level during airway: GA Final airway details: Final airway type: supraglottic airway Final supraglottic airway: classic SGA size: 4 Number of attempts: 1 Planned trial extubation: yes Misa Mar MD ANESTHESIA ORDERABLES Fi nal Result * (ABNORMAL) POCT glucose (12/05/2024 11:14 AM CDT) Glucose, POC 215(H) 70 - 199 mg/dL Blood 12/05/2024 11:1 4 AM CDT 12/05/2024 11:14 AM CDT Lucy Grimm MD LAB POCT ORDERABLES - DEVICE Fi nal Result [facility] ([place] [place] [address] * (ABNORMAL) POCT glucose (12/05/2024 7:42 AM CDT) Glucose, POC 255(H) 70 - 199 mg/dL Blood 12/05/2024 7:42 AM CDT 12/05/2024 7:42 AM CDT Lucy Grimm MD LAB POCT ORDERABLES - DEVICE Fi nal Result Performing Organization Address City/[facility]/ZIP Co de Phone Number [facility] ([place]) [address] [place] [address] [place] [address] * eGFR (12/05/2024 7:27 AM CDT) eGFR >90 >=60 mL/min/1. 73 m2 [...] of Race in Diagnosing Kidney Disease, JASN 2021). The CKD-EPI equation should not be used for patients with unstable renal function and has not been validated in children and those over 70. Current interpretive data was last reviewed 2021. Blood 12/05/2024 7:27 AM CDT 12/05/2024 7:55 AM CDT Yolis Pepper DO LAB BLOOD ORDERABLES Fin al Result [facility] ([place] [place] [address] * (ABNORMAL) Differential, auto (12/05/2024 7:27 AM CDT) Neutrophil abs 4.00 1.50 - 6.50 K/cumm Imm gran abs 0.42(H) 0.00 - 0.10 K/cumm [facility] ([place]) Lymphocyte abs 2.26 0.80 - 3.30 K/cumm [facility] ([place]) Monocyte abs 0.68 0.20 - 0.80 K/cumm [facility] ([place]) Eosinophil abs 0.30 0.00 - 0.50 K/cumm [facility] ([place]) Basophil abs 0.08 0.00 - 0.10 K/cumm [facility] ([place]) Neutrophil pct 51.7 % [facility] ([place] Comment: Interpretive Data Percent cell count reference ranges are not reported, since discordance with absolute values may lead to misinterpretation of CBC data. Current Interpretive Data was last revised on 2017. Imm gran pct 5.4 % [facility] ([place]) Comment: Interpretive Data Percent cell count reference ranges are not reported, since discordance with absolute values may lead to misinterpretation of CBC data. Current Interpretive Data was last revised on 2017. Lymphocyte pct 29.2 % [facility] ([place]) Comment: Interpretive Data Percent cell count reference ranges are not reported, since discordance with absolute values may lead to misinterpretation of CBC data. Current Interpretive Data was last revised on 2017. Monocyte pct 8.8 % [facility] ([place]) Comment: Interpretive Data Percent cell count reference ranges are not reported, since discordance with absolute values may lead to misinterpretation of CBC data. Current Interpretive Data was last revised on 2017. Eosinophil pct 3.9 % [facility] ([place]) Comment: Interpretive Data Percent cell count reference ranges are not reported, since discordance with absolute values may lead to misinterpretation of CBC data. Current Interpretive Data was last revised on 2017. Basophil pct 1.0 % [facility] ([place]) Comment: Interpretive Data Percent cell count reference ranges are not reported, since discordance with absolute values may lead to misinterpretation of CBC data. Current Interpretive Data was last revised on 2017. Blood 12/05/2024 7:27 AM CDT 12/05/2024 7:56 AM CDT Yolis Pepper DO LAB BLOOD ORDERABLES Fin al Result [facility] ([place]) [facility] [place] [address] * (ABNORMAL) CBC with auto differential (12/05/2024 7:27 AM CDT) WBC 7.74 3.80 - 9.90 K/cumm Hgb 11.6(L) 13.0 - 17.5 g/dL [facility] ([place] Hct 33.8(L) 38.9 - 50.3 % [facility] ([place]) Plt 237 150 - 400 K/cumm [facility] ([place]) MPV 10.6 9.1 - 12.3 fL [facility] ([place]) RBC 3.91(L) 4.30 - 5.80 M/cumm [facility] ([place]) MCV 86.4 81.3 - 96.4 fL [facility] ([place]) MCH 29.7 27.1 - 33.3 pg [facility] ([place]) MCHC 34.3 32.3 - 35.7 g/dL [facility] ([place]) RDW CV 12.8 11.1 - 14.9 % [facility] ([place]) RDW SD 39.2 35.7 - 48.1 fL [facility] NRBC abs 0.00 0.00 - 0.01 K/cumm [facility] ([place]) Blood 12/05/2024 7:27 AM CDT 12/05/2024 7:56 AM CDT Yolis Miranda Job2Day DO LAB BLOOD ORDERABLES Fin al Result NAOMIE GOMEZ ([place]) 1 [facility] [place] [address] * Phosphorus (12/05/2024 7:27 AM CDT) Phosphorus, pl 3.0 2.3 - 4.5 mg/dL [facility] ([place]) Blood 12/05/2024 7:27 AM CDT 12/05/2024 7:55 AM CDT [facility] Ruth Job2Day DO LAB BLOOD ORDERABLES Fin al Result Performing Organization Address City/[facility] Co de Phone Number NAOMIE GOMEZ ([place]) 1 [facility] [place] [address] * Magnesium (12/05/2024 7:27 AM CDT) Magnesium 1.7 1.4 - 2.5 mg/dL [facility] ([place]) Blood 12/05/2024 7:27 AM CDT 12/05/2024 7:55 AM CDT [facility] Ruth Job2Day DO LAB BLOOD ORDERABLES Fin al Result Performing Organization Address City/[facility]/ZIP Co de Phone Number NAOMIE GOMEZ ([place]) 1 [facility] [place] [address] * (ABNORMAL) Comprehensive metabolic panel (12/05/2024 7:27 AM CDT) Sodium 135 135 - 145 mmol/L [facility] ([place]) Potassium, pl 3.8 3.3 - 4.9 mmol/L [facility] ([place]) Chloride 105 97 - 110 mmol/L [facility] ([place]) CO2 22 22 - 32 mmol/L [facility] ([place]) Anion gap 8 2 - 15 mmol/L [facility] ([place]) BUN 22 6 - 25 mg/dL [facility] ([place]) Creatinine 0.87 0.80 - 1.30 mg/dL [facility] ([place]) Glucose 267(H) 70 - 199 mg/dL [facility] ([place]) [...] classification and Diagnosis of Diabetes Diabetes Care 202; 46: S19-S40. Current interpretive data was last revised 2022. Calcium 8.9 8.5 - 10.3 mg/dL [facility] ([place]) Bilirubin, total 0.2 0.1 - 1.2 mg/dL [facility] ([place]) Protein, pl 6.2(L) 6.5 - 8.5 g/dL [facility] ([place]) Albumin 3.0(L) 3.5 - 5.0 g/dL [facility] ([place]) Alk phos 133(H) 40 - 130 Units/L [facility] ([place]) ALT 27 7 - 55 Units/L [facility] ([place]) AST 19 10 - 50 Units/L [facility] ([place]) Blood 12/05/2024 7:27 AM CDT 12/05/2024 7:55 AM CDT us Yolis Pepper DO LAB BLOOD ORDERABLES Fin al Result [facility] ([place]) 1 [facility] [place] [address] * (ABNORMAL) POCT glucose (12/05/2024 1:59 AM CDT) Glucose, POC 292(H) 70 - 199 mg/dL Blood 12/05/2024 1:59 AM CDT 12/05/2024 1:59 AM CDT Yolis Pepper DO LAB POCT ORDERABLES - DE VICE Final Result NAOMIE GOMEZ ([place]) 1 [facility] [place] [address] [address] * (ABNORMAL) POCT glucose (12/04/2024 9:59 PM CDT) Glucose, POC 307(H) 70 - 199 mg/dL Blood 12/04/2024 9:59 PM CDT 12/04/2024 9:59 PM CDT Yolis Ruth Pepper DO LAB POCT ORDERABLES - DE VICE Final Result Performing Organization Address City/[facility]/ZIP Co de Phone Number NAOMIE GOMEZ ([place]) 1 [facility] [place] [address] [address] * (ABNORMAL) POCT glucose (12/04/2024 7:59 PM CDT) Glucose, POC 355(H) 70 - 199 mg/dL Blood 12/04/2024 7:59 PM CDT 12/04/2024 7:59 PM CDT Yolis Pepper DO LAB POCT ORDERABLES - DE VICE Final Result NAOMIE GOMEZ ([place]) 1 [facility] [place] [address] * (ABNORMAL) POCT glucose (12/04/2024 4:47 PM CDT) Glucose, POC 254(H) 70 - 199 mg/dL Blood 12/04/2024 4:47 PM CDT 12/04/2024 4:47 PM CDT Yolis Pepper DO LAB POCT ORDERABLES - DE VICE Final Result Performing Organization Address City/[facility]/ZIP Co de Phone Number NAOMIE GOMEZ ([place]) 1 [facility] [place] [address] [address] * (ABNORMAL) POCT glucose (12/04/2024 2:02 PM CDT) Glucose, POC 296(H) 70 - 199 mg/dL Blood 12/04/2024 2:02 PM CDT 12/04/2024 2:02 PM CDT Yolis Pepper DO LAB POCT ORDERABLES - DE VICE Final Result Performing Organization Address [facility] Co de Phone Number NAOMIE GOMEZ ([place]) 1 [facility] [place] [address] [address] * (ABNORMAL) POCT glucose (12/04/2024 11:39 AM CDT) Glucose, POC 321(H) 70 - 199 mg/dL Blood 12/04/2024 11:3 9 AM CDT 12/04/2024 11:39 AM CDT Yolis Pepper DO LAB POCT ORDERABLES - DE VICE Final Result Performing Organization Address [facility] Co de Phone Number NAOMIE GOMEZ ([place]) 1 [facility] [place] [address] * (ABNORMAL) POCT glucose (12/04/2024 11:36 AM CDT) Glucose, POC 339(H) 70 - 199 mg/dL Comment:Glu2: Will Repeat Te st Blood 12/04/2024 11:3 6 AM CDT 12/04/2024 11:36 AM CDT Yolis Pepper DO LAB POCT ORDERABLES - DE VICE Final Result Performing Organization Address City/[facility]/ZIP Co de Phone Number NAOMIE GOMEZ ([place]) 1 [facility] [place] [address] * eGFR (12/04/2024 8:29 AM CDT) eGFR >90 >=60 mL/min/1. 73 m2 [...] interpretive data was last reviewed 2021. Blood 12/04/2024 8:29 AM CDT 12/04/2024 8:51 AM CDT us Yolis Pepper DO LAB BLOOD ORDERABLES Fin al Result NAOMIE GOMEZ ([place]) 1 [facility] [place] [address] * Differential, auto (12/04/2024 8:29 AM CDT) Neutrophil abs 3.51 1.50 - 6.50 K/cumm Imm gran abs 0.10 0.00 - 0.10 K/cumm [facility] ([place]) Lymphocyte abs 1.54 0.80 - 3.30 K/cumm [facility] ([place]) Monocyte abs 0.61 0.20 - 0.80 K/cumm [facility] ([place]) Eosinophil abs 0.19 0.00 - 0.50 K/cumm [facility] ([place]) Basophil abs 0.04 0.00 - 0.10 K/cumm [facility] ([place]) Neutrophil pct 58.5 % [facility] ([place]) Comment: Interpretive Data Percent cell count reference ranges are not reported, since discordance with absolute values may lead to misinterpretation of CBC data. Current Interpretive Data was last revised on 2017. Imm gran pct 1.7 % [facility] ([place]) Comment: Interpretive Data Percent cell count reference ranges are not reported, since discordance with absolute values may lead to misinterpretation of CBC data. Current Interpretive Data was last revised on 2017. Lymphocyte pct 25.7 % [facility] ([place]) Comment: Interpretive Data Percent cell count reference ranges are not reported, since discordance with absolute values may lead to misinterpretation of CBC data. Current Interpretive Data was last revised on 2017. Monocyte pct 10.2 % [facility] ([place]) Comment: Interpretive Data Percent cell count reference ranges are not reported, since discordance with absolute values may lead to misinterpretation of CBC data. Current Interpretive Data was last revised on 2017. Eosinophil pct 3.2 % [facility] ([place]) Comment: Interpretive Data Percent cell count reference ranges are not reported, since discordance with absolute values may lead to misinterpretation of CBC data. Current Interpretive Data was last revised on 2017. Basophil pct 0.7 % [facility] ([place]) Comment: Interpretive Data Percent cell count reference ranges are not reported, since discordance with absolute values may lead to misinterpretation of CBC data. Current Interpretive Data was last revised on 2017. Blood 12/04/2024 8:29 AM CDT 12/04/2024 8:51 AM CDT us Yolis Pepper DO LAB BLOOD ORDERABLES Fin al Result NAOMIE GOMEZ ([place]) 1 [facility] [place] [address] * (ABNORMAL) CBC with auto differential (12/04/2024 8:29 AM CDT) WBC 5.99 3.80 - 9.90 K/cumm Hgb 11.3(L) 13.0 - 17.5 g/dL [facility] ([place]) Hct 32.6(L) 38.9 - 50.3 % [facility] ([place]) Plt 201 150 - 400 K/cumm [facility] ([place]) MPV 10.5 9.1 - 12.3 fL [facility] ([place]) RBC 3.78(L) 4.30 - 5.80 M/cumm [facility] ([place]) MCV 86.2 81.3 - 96.4 fL [facility] ([place]) MCH 29.9 27.1 - 33.3 pg [facility] ([place]) MCHC 34.7 32.3 - 35.7 g/dL [facility] ([place]) RDW CV 12.8 11.1 - 14.9 % [facility] ([place]) RDW SD 39.8 35.7 - 48.1 fL [facility] ([place]) NRBC abs 0.00 0.00 - 0.01 K/cumm [facility] ([place]) Blood 12/04/2024 8:29 AM CDT 12/04/2024 8:51 AM CDT Yolis Pepper DO LAB BLOOD ORDERABLES Fin al Result Performing Organization Address City/[facility]/ZIP Co de Phone Number NAOMIE GOMEZ ([place]) 1 [facility] [place] [address] * Phosphorus (12/04/2024 8:29 AM CDT) Phosphorus, pl 2.9 2.3 - 4.5 mg/dL [facility] ([place]) Blood 12/04/2024 8:29 AM CDT 12/04/2024 8:51 AM CDT Yolis Pepper DO LAB BLOOD ORDERABLES Fin al Result [facility] ([place]) 1 [facility] [place] [address] * Magnesium (12/04/2024 8:29 AM CDT) Magnesium 1.6 1.4 - 2.5 mg/dL [facility] ([place] Blood 12/04/2024 8:29 AM CDT 12/04/2024 8:51 AM CDT Yolis Pepper DO LAB BLOOD ORDERABLES Fin al Result NAOMIE GOMEZ ([place]) 1 [facility] [place] [address] * (ABNORMAL) Comprehensive metabolic panel (12/04/2024 8:29 AM CDT) Sodium 135 135 - 145 mmol/L [facility] ([place]) Potassium, pl 3.9 3.3 - 4.9 mmol/L [facility] ([place]) Chloride 102 97 - 110 mmol/L [facility] ([place]) CO2 24 22 - 32 mmol/L [facility] ([place]) Anion gap 9 2 - 15 mmol/L [facility] ([place]) BUN 18 6 - 25 mg/dL [facility] ([place]) Creatinine 0.93 0.80 - 1.30 mg/dL [facility] ([place]) Glucose 329(H) 70 - 199 mg/dL [facility] ([place]) Comment: Interpretive Data Fasting glucose [...] interpretive data was last revised 2022. Calcium 8.9 8.5 - 10.3 mg/dL [facility] ([place]) Bilirubin, total 0.3 0.1 - 1.2 mg/dL [facility] ([place]) Protein, pl 6.1(L) 6.5 - 8.5 g/dL [facility] ([place]) Albumin 3.1(L) 3.5 - 5.0 g/dL [facility] ([place]) Alk phos 138(H) 40 - 130 Units/L [facility] ([place]) ALT 23 7 - 55 Units/L [facility] ([place]) AST 14 10 - 50 Units/L [facility] ([place]) Blood 12/04/2024 8:29 AM CDT 12/04/2024 8:51 AM CDT Yolis Pepper DO LAB BLOOD ORDERABLES Fin al Result Performing Organization Address City/[facility]/ZIP Co de Phone Number NAOMIE GOMEZ ([place]) 1 [facility] [place] [address] * (ABNORMAL) POCT glucose (12/04/2024 8:04 AM CDT) Glucose, POC 294(H) 70 - 199 mg/dL Blood 12/04/2024 8:04 AM CDT 12/04/2024 8:04 AM CDT Yolis Pepper DO LAB POCT ORDERABLES - DE VICE Final Result Performing Organization Address City/[facility] Co de Phone Number NAOMIE GOMEZ ([place]) 1 [facility] [place] [address] * (ABNORMAL) POCT glucose (12/04/2024 2:13 AM CDT) Glucose, POC 356(H) 70 - 199 mg/dL Comment:Glu2: RN/MD Notified Blood 12/04/2024 2:13 AM CDT 12/04/2024 2:13 AM CDT Yolis Pepper DO LAB POCT ORDERABLES - DE VICE Final Result NAOMIE GOMEZ ([place]) 1 [facility] [place] [address] * (ABNORMAL) POCT glucose (12/03/2024 10:24 PM CDT) Glucose, POC 304(H) 70 - 199 mg/dL Blood 12/03/2024 10:2 4 PM CDT 12/03/2024 10:24 PM CDT Yolis Pepper DO LAB POCT ORDERABLES - DE VICE Final Result Performing Organization Address City/[facility]/ZIP Co de Phone Number NAOMIE GOMEZ ([place]) 1 [place] [address] * POCT glucose (12/03/2024 4:46 PM CDT) Glucose, POC 152 70 - 199 mg/dL Blood 12/03/2024 4:46 PM CDT 12/03/2024 4:46 PM CDT Yolis Pepper DO LAB POCT ORDERABLES - DE VICE Final Result Performing Organization Address City/[facility]/ZIP Co de Phone Number NAOMIE GOMEZ ([place]) 1 [facility] [place] [address] * (ABNORMAL) POCT glucose (12/03/2024 11:26 AM CDT) Glucose, POC 209(H) 70 - 199 mg/dL Blood 12/03/2024 11:2 6 AM CDT 12/03/2024 11:26 AM CDT Yolis Pepper DO LAB POCT ORDERABLES - DE VICE Final Result NAOMIE GOMEZ ([place]) 1 [facility] [place] [address] * eGFR (12/03/2024 7:31 AM CDT) eGFR >90 >=60 mL/min/1. 73 m2 [...] interpretive data was last reviewed 2021. Blood 12/03/2024 7:31 AM CDT 12/03/2024 7:53 AM CDT us Yolis Pepper DO LAB BLOOD ORDERABLES Fin al Result [facility] ([place]) 1 [facility] [place] [address] * Differential, auto (12/03/2024 7:31 AM CDT) Pathologist [facility] Neutrophil abs 2.92 1.50 - 6.50 K/cumm Imm gran abs 0.03 0.00 - 0.10 K/cumm [facility] ([place]) Lymphocyte abs 1.71 0.80 - 3.30 K/cumm [facility] ([place]) Monocyte abs 0.53 0.20 - 0.80 K/cumm [facility] ([place]) Eosinophil abs 0.23 0.00 - 0.50 K/cumm [facility] ([place]) Basophil abs 0.03 0.00 - 0.10 K/cumm [facility] ([place]) Neutrophil pct 53.5 % [facility] ([place]) Comment: Interpretive Data Percent cell count reference ranges are not reported, since discordance with absolute values may lead to misinterpretation of CBC data. Current Interpretive Data was last revised on 2017. Imm gran pct 0.6 % [facility] ([place]) Comment: Interpretive Data Percent cell count reference ranges are not reported, since discordance with absolute values may lead to misinterpretation of CBC data. Current Interpretive Data was last revised on 2017. Lymphocyte pct 31.4 % [facility] ([place]) Comment: Interpretive Data Percent cell count reference ranges are not reported, since discordance with absolute values may lead to misinterpretation of CBC data. Current Interpretive Data was last revised on 2017. Monocyte pct 9.7 % [facility] ([place]) Comment: Interpretive Data Percent cell count reference ranges are not reported, since discordance with absolute values may lead to misinterpretation of CBC data. Current Interpretive Data was last revised on 2017. Eosinophil pct 4.2 % [facility] ([place]) Comment: Interpretive Data Percent cell count reference ranges are not reported, since discordance with absolute values may lead to misinterpretation of CBC data. Current Interpretive Data was last revised on 2017. Basophil pct 0.6 % [facility] ([place]) Comment: Interpretive Data Percent cell count reference ranges are not reported, since discordance with absolute values may lead to misinterpretation of CBC data. Current Interpretive Data was last revised on 2017. Blood 12/03/2024 7:31 AM CDT 12/03/2024 7:53 AM CDT Yolis Pepper DO LAB BLOOD ORDERABLES Fin al Result NAOMIE GOMEZ ([place]) 1 [facility] [place] [address] * (ABNORMAL) CBC with auto differential (12/03/2024 7:31 AM CDT) WBC 5.45 3.80 - 9.90 K/cumm Hgb 11.6(L) 13.0 - 17.5 g/dL NAOMIE GOMEZ ([place]) Hct 33.5(L) 38.9 - 50.3 % [facility] ([place]) Plt 177 150 - 400 K/cumm [facility] ([place]) MPV 11.0 9.1 - 12.3 fL [facility] ([place]) RBC 3.86(L) 4.30 - 5.80 M/cumm [facility] ([place]) MCV 86.8 81.3 - 96.4 fL [facility] ([place]) MCH 30.1 27.1 - 33.3 pg [facility] ([place]) MCHC 34.6 32.3 - 35.7 g/dL [facility] ([place]) RDW CV 13.1 11.1 - 14.9 % [facility] ([place]) RDW SD 40.9 35.7 - 48.1 fL [facility] ([place]) NRBC abs 0.00 0.00 - 0.01 K/cumm [facility] ([place]) Blood 12/03/2024 7:31 AM CDT 12/03/2024 7:53 AM CDT Yolis Pepper DO LAB BLOOD ORDERABLES Fin al Result [facility] ([place]) 1 [facility] [place] [address] * Phosphorus (12/03/2024 7:31 AM CDT) Phosphorus, pl 3.1 2.3 - 4.5 mg/dL [facility] ([place]) Blood 12/03/2024 7:31 AM CDT 12/03/2024 7:53 AM CDT Yolis Lindsey Shell DO LAB BLOOD ORDERABLES Fin al Result [facility] ([place]) 1 [facility] [place] [address] * Magnesium (12/03/2024 7:31 AM CDT) Magnesium 1.6 1.4 - 2.5 mg/dL [facility] ([place]) Blood 12/03/2024 7:31 AM CDT 12/03/2024 7:53 AM CDT Yolis Pepper DO LAB BLOOD ORDERABLES Dionicio al Result [facility] ([place]) 1 [facility] [place] [address] * (ABNORMAL) Comprehensive metabolic panel (12/03/2024 7:31 AM CDT) Sodium 137 135 - 145 mmol/L [facility] ([place]) Potassium, pl 3.6 3.3 - 4.9 mmol/L [facility] ([place]) Chloride 108 97 - 110 mmol/L [facility] ([place]) CO2 19(L) 22 - 32 mmol/L [facility] ([place]) Anion gap 12 2 - 15 mmol/L [facility] ([place]) BUN 11 6 - 25 mg/dL [facility] ([place]) Creatinine 0.74(L) 0.80 - 1.30 mg/dL [facility] ([place]) Glucose 208(H) 70 - 199 mg/dL [facility] ([place]) [...] interpretive data was last revised 2022. Calcium 8.9 8.5 - 10.3 mg/dL [facility] ([place]) Bilirubin, total 0.5 0.1 - 1.2 mg/dL [facility] ([place]) Protein, pl 6.1(L) 6.5 - 8.5 g/dL [facility] ([place]) Albumin 2.9(L) 3.5 - 5.0 g/dL [facility] ([place]) Alk phos 108 40 - 130 Units/L [facility] ([place]) ALT 24 7 - 55 Units/L [facility] ([place]) AST 14 10 - 50 Units/L [facility] ([place]) Blood 12/03/2024 7:31 AM CDT 12/03/2024 7:53 AM CDT Yolis Pepper DO LAB BLOOD ORDERABLES Fin al Result NAOMIE GOMEZ ([place]) 1 [facility] [place] [address] * POCT glucose (12/03/2024 7:24 AM CDT) Glucose, POC 191 70 - 199 mg/dL Blood 12/03/2024 7:24 AM CDT 12/03/2024 7:24 AM CDT Yolis Pepper DO LAB POCT ORDERABLES - DE VICE Final Result Performing Organization Address [facility] Co de Phone Number NAOMIE GOMEZ ([place]) 1 [facility] [place] [address] * (ABNORMAL) POCT glucose (12/03/2024 2:24 AM CDT) Glucose, POC 207(H) 70 - 199 mg/dL Comment:Glu2: RN/MD Notified Blood 12/03/2024 2:24 AM CDT 12/03/2024 2:24 AM CDT Yolis BaileyZostel DO LAB POCT ORDERABLES - DE VICE Final Result Performing Organization Address City/[facility] Co de Phone Number NAOMIE GOMEZ ([place]) 1 [facility] [place] [address] * (ABNORMAL) POCT glucose (12/02/2024 8:33 PM CDT) Glucose, POC 203(H) 70 - 199 mg/dL Blood 12/02/2024 8:33 PM CDT 12/02/2024 8:33 PM CDT Yolis Pepper DO LAB POCT ORDERABLES - DE VICE Final Result Performing Organization Address [facility]/ZIP Co de Phone Number NAOMIE GOMEZ ([place]) 1 [facility] [place] [address] * (ABNORMAL) POCT glucose (12/02/2024 4:31 PM CDT) Glucose, POC 211(H) 70 - 199 mg/dL Blood 12/02/2024 4:31 PM CDT 12/02/2024 4:31 PM CDT Yolis Pepper DO LAB POCT ORDERABLES - DE VICE Final Result Performing Organization Address [facility] Co de Phone Number NAOMIE GOMEZ ([place]) 1 [facility] [place] [address] * Lactate (12/02/2024 2:31 PM CDT) Lactate 1.5 0.7 - 2.0 mmol/L Blood 12/02/2024 2:31 PM CDT 12/02/2024 2:35 PM CDT Yolis Pepper DO LAB BLOOD ORDERABLES Fin al Result Performing Organization Address City/[facility]/ZIP Co de Phone Number NAOMIE GOMEZ ([place]) 1 [facility] [place] [address] * (ABNORMAL) POCT glucose (12/02/2024 11:26 AM CDT) Glucose, POC 218(H) 70 - 199 mg/dL Blood 12/02/2024 11:2 6 AM CDT 12/02/2024 11:26 AM CDT Yolis Pepper DO LAB POCT ORDERABLES - DE VICE Final Result Performing Organization Address City/[facility]/ZIP Co de Phone Number NAOMIE GOMEZ ([place]) 1 [facility] [place] [address] * eGFR (12/02/2024 10:25 AM CDT) eGFR >90 >=60 mL/min/1. 73 m2 [...] interpretive data was last reviewed 2021. Blood 12/02/2024 10:2 5 AM CDT 12/02/2024 10:59 AM CDT Yolis Pepper DO LAB BLOOD ORDERABLES Fin al Result NAOMIE GOMEZ ([place]) 1 [facility] [place] [address] * Differential, auto (12/02/2024 10:25 AM CDT) Neutrophil abs 4.43 1.50 - 6.50 K/cumm Imm gran abs 0.04 0.00 - 0.10 K/cumm [facility] ([place]) Lymphocyte abs 1.22 0.80 - 3.30 K/cumm [facility] ([place]) Monocyte abs 0.64 0.20 - 0.80 K/cumm [facility] ([place]) Eosinophil abs 0.17 0.00 - 0.50 K/cumm [facility] ([place]) Basophil abs 0.05 0.00 - 0.10 K/cumm [facility] ([place]) Neutrophil pct 67.6 % [facility] ([place]) Comment: Interpretive Data Percent cell count reference ranges are not reported, since discordance with absolute values may lead to misinterpretation of CBC data. Current Interpretive Data was last revised on 2017. Imm gran pct 0.6 % [facility] ([place]) Comment: Interpretive Data Percent cell count reference ranges are not reported, since discordance with absolute values may lead to misinterpretation of CBC data. Current Interpretive Data was last revised on 2017. Lymphocyte pct 18.6 % [facility] ([place]) Comment: Interpretive Data Percent cell count reference ranges are not reported, since discordance with absolute values may lead to misinterpretation of CBC data. Current Interpretive Data was last revised on 2017. Monocyte pct 9.8 % [facility] ([place]) Comment: Interpretive Data Percent cell [...] was last revised on 2017. Basophil pct 0.8 % [facility] ([place]) Comment: Interpretive Data Percent cell count reference ranges are not reported, since discordance with absolute values may lead to misinterpretation of CBC data. Current Interpretive Data was last revised on 2017. Blood 12/02/2024 10:2 5 AM CDT 12/02/2024 10:59 AM CDT us Yolis Pepper DO LAB BLOOD ORDERABLES Fin al Result NAOMIE GOME[facility] ([place]) 1 [facility] [place] [address] * (ABNORMAL) CBC with auto differential (12/02/2024 10:25 AM CDT) WBC 6.55 3.80 - 9.90 K/cumm Hgb 11.8(L) 13.0 - 17.5 g/dL [facility] ([place]) Hct 36.3(L) 38.9 - 50.3 % [facility] ([place]) Plt 161 150 - 400 K/cumm [facility] ([place]) MPV 11.2 9.1 - 12.3 fL [facility] ([place]) RBC 4.01(L) 4.30 - 5.80 M/cumm [facility] ([place]) MCV 90.5 81.3 - 96.4 fL [facility] ([place]) MCH 29.4 27.1 - 33.3 pg [facility] ([place]) MCHC 32.5 32.3 - 35.7 g/dL [facility] ([place]) RDW CV 13.3 11.1 - 14.9 % [facility] ([place]) RDW SD 43.9 35.7 - 48.1 fL [facility] ([place]) NRBC abs 0.00 0.00 - 0.01 K/cumm [facility] ([place]) Blood 12/02/2024 10:2 5 AM CDT 12/02/2024 10:59 AM CDT Yolis Pepper DO LAB BLOOD ORDERABLES Fin al Result Performing Organization Address City/[facility] Co de Phone Number [facility] ([place]) 1 [facility] [place] [address] * (ABNORMAL) CRP (acute phase) (12/02/2024 10:25 AM CDT) CRP 71.7(H) <=10.0 mg/L [facility] ([place]) Blood 12/02/2024 10:2 5 AM CDT 12/02/2024 2:10 PM CDT Yolis BaileyPro V&V LAB BLOOD ORDERABLES Fin al Result Performing Organization Address City/State/[facility] Co de Phone Number NAOMIE GOMEZ ([place]) 1 [facility] [place] [address] * (ABNORMAL) Phosphorus (12/02/2024 10:25 AM CDT) Phosphorus, pl 1.7(L) 2.3 - 4.5 mg/dL [facility] ([place]) Blood 12/02/2024 10:2 5 AM CDT 12/02/2024 10:59 AM CDT Yolis Pepper DO LAB BLOOD ORDERABLES Fin al Result Performing Organization Address City/[facility]/ZIP Co de Phone Number NAOMIE GOMEZ ([place]) 1 [facility] [place] [address] * Magnesium (12/02/2024 10:25 AM CDT) Magnesium 1.7 1.4 - 2.5 mg/dL [facility] ([place] Blood 12/02/2024 10:2 5 AM CDT 12/02/2024 10:59 AM CDT Yolis Pepper DO LAB BLOOD ORDERABLES Fin al Result Performing Organization Address [facility]/ZIP Co de Phone Number NAOMIE GOMEZ ([place]) 1 [facility] [place] [address] * Creatine kinase (CK), total (12/02/2024 10:25 AM CDT) CK 98 40 - 300 Units/L NAOMIE GOMEZ ([place]) Blood 12/02/2024 10:2 5 AM CDT 12/02/2024 2:10 PM CDT Yolis Pepper DO LAB BLOOD ORDERABLES Fin al Result Performing Organization Address City/[facility]/ZIP Co de Phone Number NAOMIE GOMEZ ([place]) 1 [facility] [place] [address] * Vancomycin level trough Draw trough prior to 4th dose. (12/02/2024 10:25 AM CDT) Vancomycin trough 14.6 10.0 - 20.0 mcg/mL NAOMIE GOMEZ ([place]) Blood 12/02/2024 10:2 5 AM CDT 12/02/2024 11:00 AM CDT Narrative [facility] - 12/02/2024 11:28 AM CDT Draw trough prior to 4th dose. us Shannan Garcia NP LAB BLOOD ORDERABLES Final Resul t NAOMIE GOMEZ ([place]) 1 [facility] Department [place] [address] * (ABNORMAL) Comprehensive metabolic panel (12/02/2024 10:25 AM CDT) Sodium 138 135 - 145 mmol/L [facility] ([place] Potassium, pl 4.8 3.3 - 4.9 mmol/L [facility] ([place]) Chloride 105 97 - 110 mmol/L [facility] ([place]) CO2 19(L) 22 - 32 mmol/L [facility] ([place]) Anion gap 14 2 - 15 mmol/L [facility] ([place]) BUN 10 6 - 25 mg/dL [facility] ([place]) Creatinine 0.77(L) 0.80 - 1.30 mg/dL [facility] ([place]) Glucose 248(H) 70 - 199 mg/dL [facility] ([place]) [...] interpretive data was last revised 2022. Calcium 9.1 8.5 - 10.3 mg/dL [facility] ([place]) Bilirubin, total 0.4 0.1 - 1.2 mg/dL [facility] ([place]) Protein, pl 6.3(L) 6.5 - 8.5 g/dL [facility] ([place]) Albumin 2.8(L) 3.5 - 5.0 g/dL [facility] ([place]) Alk phos 134(H) 40 - 130 Units/L [facility] ([place]) ALT 31 7 - 55 Units/L [facility] ([place]) AST 20 10 - 50 Units/L [facility] ([place]) Blood 12/02/2024 10:2 5 AM CDT 12/02/2024 10:59 AM CDT Yolis Pepper DO LAB BLOOD ORDERABLES Fin al Result Performing Organization Address City/[facility] Co de Phone Number NAOMIE GOMEZ ([place]) 1 [facility] [place] [address] * (ABNORMAL) Erythrocyte sedimentation rate (12/02/2024 10:22 AM CDT) Erythrocyte sedimentation rate 68(H) 1 - 15 mm/hr Blood 12/02/2024 10:2 2 AM CDT 12/02/2024 2:26 PM CDT Yolis Pepper DO LAB BLOOD ORDERABLES Fin al Result Performing Organization Address City/[facility]/ZIP Co de Phone Number NAOMIE GOMEZ ([place]) 1 [facility] [place] [address] * (ABNORMAL) POCT glucose (12/02/2024 7:37 AM CDT) Glucose, POC 333(H) 70 - 199 mg/dL Blood 12/02/2024 7:37 AM CDT 12/02/2024 7:37 AM CDT Yolis Pepper DO LAB POCT ORDERABLES - DE VICE Final Result Performing Organization Address City/[facility]/ZIP Co de Phone Number NAOMIE GOMEZ ([place]) 1 [place] [address] * (ABNORMAL) POCT glucose (12/02/2024 2:21 AM CDT) Glucose, POC 386(H) 70 - 199 mg/dL Blood 12/02/2024 2:21 AM CDT 12/02/2024 2:21 AM CDT Yolis Ppeper DO LAB POCT ORDERABLES - DE VICE Final Result Performing Organization Address City/[facility]/ZIP Co de Phone Number NAOMIE GOMEZ ([place]) 1 [place] [address] * (ABNORMAL) POCT glucose (12/01/2024 9:04 PM CDT) Glucose, POC 360(H) 70 - 199 mg/dL Blood 12/01/2024 9:04 PM CDT 12/01/2024 9:04 PM CDT Yolis Pepper DO LAB POCT ORDERABLES - DE VICE Final Result Performing Organization Address City/[facility]/ZIP Co de Phone Number NAOMIE GOMEZ ([place]) 1 [facility] [place] [address] * (ABNORMAL) POCT glucose (12/01/2024 4:17 PM CDT) Glucose, POC 243(H) 70 - 199 mg/dL Blood 12/01/2024 4:17 PM CDT 12/01/2024 4:17 PM CDT Yolis Pepper DO LAB POCT ORDERABLES - DE VICE Final Result NAOMIE GOMEZ ([place]) 1 [facility] [place] [address] * (ABNORMAL) Urinalysis reflex to microscopic and culture Urine (12/01/2024 3:26 PM CDT) Color, ur Yellow Yellow Clarity, ur Clear Clear [facility] ([place]) Specific gravity, ur 1.038(H) 1.003 - 1.030 [facility] ([place]) pH, urine 6.0 [facility] ([place]) Comment: Interpretive Data U rine pH is affected by diet, medications, systemic acid-base disturbances, and renal tubular function. pH may affect urinary stone formation. For example, urine pH below 6.0 may help reduce the tendency for calcium phosphate stones and pH greater than 6.0 may reduce the tendency for uric acid stone formation. Source: [facility] [place] Current Interpretive Data was last revised on 2017 Protein, ur ql 1+(A) Negative [facility] ([place]) Glucose, ur ql 4+(A) Negative [facility] ([place]) Ketones, ur Trace Negative [facility] ([place]) Bilirubin, ur Negative Negative [facility] ([place]) Blood, ur Negative Negative [facility] ([place]) Urobilinogen, ur 2.0(A) <2.0 mg/dL [facility] ([place]) Nitrite, ur Negative Negative [facility] ([place]) Leukocyte esterase, ur Negative Negative [facility] ([place]) UA reflex comment Reflex to microscopic UA will be performed. [facility] ([place]) Urine 12/01/2024 3:26 PM CDT 12/01/2024 3:36 PM CDT Narrative [facility] ([place]) - 12/01/2024 3:50 PM CDT If patient unable to urinate, straight cath us Shannan Garcia NP LAB MICROBIOLOGY - GENERAL ORDER NINI Final Result [facility] ([place]) 1 [facility] Department [place] [address] * (ABNORMAL) Urinalysis, microscopic only (12/01/2024 3:26 PM CDT) WBC, ur 6-10(A) 0 - 5 /HPF RBC, ur 0-2 0 - 2 /HPF [facility] ([place]) Epithelial cells, squamous, ur 1-5 0 - 5 /HPF [facility] ([place]) Bacteria, ur Trace(A) [facility] ([place]) Mucous, ur Present(A) NAOMIE Santo ([place]) Culture Reflex Comment Reflex conditions for urine culture (WBC >10) not met. [facility] ([place]) Urine 12/01/2024 3:26 PM CDT 12/01/2024 3:36 PM CDT Giovanna Ceron MD LAB URINE ORDERABLES Leyla l Result [facility] ([place]) 1 [facility] [place] [address] * (ABNORMAL) POCT glucose (12/01/2024 11:51 AM CDT) Glucose, POC 290(H) 70 - 199 mg/dL Blood 12/01/2024 11:5 1 AM CDT 12/01/2024 11:51 AM CDT Yolis Pepper DO LAB POCT ORDERABLES - DE VICE Final Result Performing Organization Address City/[facility]/ZIP Co de Phone Number [facility] ([place]) 1 [facility] [place] [address] * (ABNORMAL) Troponin T high-sensitivity (12/01/2024 11:45 AM CDT) Trop T hs 50(H) <=22 ng/L [facility] ([place]) Comment: Interpretive Data For further hscTnT resources including the diagnostic algorithm and an aid in interpretation, copy and paste this link: https://nrl.testcatalog.org/show/hsTrop Current Interpretive Data last revised 2020. Blood 12/01/2024 11:4 5 AM CDT 12/01/2024 11:50 AM CDT Yolis Ruth Fasick DO LAB BLOOD ORDERABLES Fin al Result Performing Organization Address City/[facility]/ZIP Co de Phone Number NAOMIE GOMEZ ([place]) 1 [facility] [place] [address] * (ABNORMAL) Hemoglobin and hematocrit (12/01/2024 11:45 AM CDT) Hgb 11.5(L) 13.0 - 17.5 g/dL Hct 33.1(L) 38.9 - 50.3 % [facility] ([place]) Blood 12/01/2024 11:4 5 AM CDT 12/01/2024 11:50 AM CDT Yolis Pepper HEALBE LAB BLOOD ORDERABLES Fin al Result Performing Organization Address [facility] Co de Phone Number NAOMIE GOMEZ ([place]) 1 [facility] [place] [address] * (ABNORMAL) aPTT (12/01/2024 11:45 AM CDT) aPTT 25(L) 28 - 38 sec [facility] ([place]) Comment: Interpretive Data Heparin therapeutic range: 66.0 - 100.0 seconds. Range based on correlation with therapeutic heparin activity range of 0.3 - 0.7 Units/mL. Current interpretive data was last revised on 2023. Blood 12/01/2024 11:4 5 AM CDT 12/01/2024 11:50 AM CDT Narrative NAOMIE GOME[facility] ([place]) - 12/01/2024 12:13 PM CDT Baseline prior to enoxaparin initiation. Yolis Pepper DO LAB BLOOD ORDERABLES Fin al Result Performing Organization Address City/[facility]/ZIP Co de Phone Number NAOMIE GOMEZ ([place]) 1 [facility] [place] [address] * Protime-INR (12/01/2024 11:45 AM CDT) PT 12.5 9.7 - 13.0 sec [facility] ([place]) INR 1.15 0.90 - 1.20 [facility] ([place]) Comment: Interpretive data Oral anticoagulant therapeutic ranges: Venous thromboembolism prophylaxis or treatment: 2.0-3.0 CARDIOLOGY Standard range: 2.0-3.0 High-intensity range: 2.5-3.5 Refer to indication-specific guidelines for appropriate target ranges for prosthetic heart valve replacement. Current interpretive data was last revised on 2019. Blood 12/01/2024 11:4 5 AM CDT 12/01/2024 11:50 AM CDT Narrative [facility]IE [facility] ([place]) - 12/01/2024 12:13 PM CDT Baseline prior to enoxaparin initiation. Yolis BaileyPro V&V LAB BLOOD ORDERABLES Fin al Result NAOMIE GOMEZ ([place]) 1 [facility] Department [place] [address] * D-dimer, quantitative (12/01/2024 11:45 AM CDT) D-Dimer <215 <=499 ng/mL FEU [facility] ([place]) Comment: Interpretive data FDA approved the D-dimer, in conjunction with a low or moderate pretest probability score, to exclude venous thromboembolic events (VTE) (PE and DVT) in outpatients when the D-dimer result is < 500 ng/ml FEU. Evidence supports using an age-adjusted D-dimer cut-off for outpatients older than 50 (age x 10) to improve specificity without sacrificing sensitivity. Example: age 68, VTE cut-off 680 ng/ml FEU. References; Schouten HT et al. Brit Med J. 2013;346:f2492. Kike et al. Annals Int Med. 2015;163:701-11. Current interpretive data was last revised on 2019. Blood 12/01/2024 11:4 5 AM CDT 12/01/2024 11:51 AM CDT Yolis Ruth Fasick DO LAB BLOOD ORDERABLES Fin al Result NAOMIE GOMEZ ([place]) 1 [facility] [place] [address] * (ABNORMAL) Phosphorus (12/01/2024 11:45 AM CDT) Phosphorus, pl 1.5(L) 2.3 - 4.5 mg/dL [facility] ([place]) Blood 12/01/2024 11:4 5 AM CDT 12/01/2024 11:50 AM CDT Yolis Pepper DO LAB BLOOD ORDERABLES Fin al Result NAOMIE GOMEZ ([place]) 1 [facility] [place] [address] * Magnesium (12/01/2024 11:45 AM CDT) Magnesium 1.7 1.4 - 2.5 mg/dL [facility] ([place]) Blood 12/01/2024 11:4 5 AM CDT 12/01/2024 11:50 AM CDT Yolis Pepper DO LAB BLOOD ORDERABLES Fin al Result NAOMIE GOMEZ ([place]) 1 [facility] [place] [address] * (ABNORMAL) POCT glucose (12/01/2024 8:12 AM CDT) Glucose, POC 210(H) 70 - 199 mg/dL Blood 12/01/2024 8:12 AM CDT 12/01/2024 8:12 AM CDT Yolis Pepper DO LAB POCT ORDERABLES - DE VICE Final Result NAOMIE GOMEZ ([place]) 1 [facility] [place] [address] * US VEIN DUPLEX LOWER EXTREMITY LEFT LIMITED, UNILATERAL (12/01/2024 7:53 AM CDT) Anatomical Region Laterality Modality Vascular Left Ultrasound 12/01/2024 8:53 AM CDT Narrative 12/01/2024 9:19 AM CDT EXAM DESCRIPTION: US VEIN DUPLEX LOWER EXTREMITY LEFT LIMITED, UNILATERAL REASON FOR STUDY: Swelling, Lower Extremity, Left TECHNIQUE: Duplex scan using the B-mode, spectral Doppler, and color-flow Doppler of the deep venous system of the left lower extremity was performed. Images stored on PACS. COMPARISON: None FINDINGS: There is a appearance of nonocclusive thrombus within the greater saphenous vein. The common femoral, common femoral-saphenous vein confluence, visualized profunda femoral, superficial femoral, and popliteal veins are readily compressible with no intraluminal thrombus on jarrell scale images. There is normal color and spectral Doppler signal, including augmentation. Greater saphenous vein appears patent. Visualized calf veins are patent. IMPRESSION: Abnormal appearance of the greater saphenous vein, likely representing nonocclusive thrombus. These significant findings were reported by telephone to nurse Victor Hugo Forrest on 12/02/2019 at 9:18 a.m. THIS IS AN ELECTRONICALLY VERIFIED FINAL REPORT 12/01/2024 9:19 AM - Electronically signed by Heriberto Coleman M.D. AM: AM Report ID: [id number] Reading Location: [id number] Procedure Note Heriberto Coleman MD - 12/01/2024 EXAM DESCRIPTION: US VEIN DUPLEX LOWER EXTREMITY LEFT LIMITED,UNILATERAL REASON FOR STUDY: Swelling, Lower Extremity, Left TECHNIQUE: Duplex scan using the B-mode, spectral Doppler, and color-flow Doppler of the deep venous system of the left lower extremity wasperformed. Images stored on PACS. COMPARISON: None FINDINGS: There is a appearance of nonocclusive thrombus within the greatersaphenous vein. The common femoral, common femoral-saphenous vein confluence, visualized profunda femoral, superficial femoral, and popliteal veins are readily compressible with no intraluminal thrombus on jarrell scale images. There is normal color and spectral Doppler signal, including augmentation. Greater saphenous vein appears patent. Visualized calf veins are patent. IMPRESSION: Abnormal appearance of the greater saphenous vein, likely representing nonocclusive thrombus. These significant findings were reported by telephone to nurse Victor Hugo Forrest on 12/02/2019 at 9:18 a.m. THIS IS AN ELECTRONICALLY VERIFIED FINAL REPORT 12/01/2024 9:19 AM - Electronically signed by Heriberto Coleman M.D. AM: AM Report ID: [id number] Reading Location: [place] [address] us Nelson Chang MD IMG US PROCEDURES Final Result * Sepsis Lactate w/ Reflex (12/01/2024 5:22 AM CDT) Sepsis Lactate 1.0 0.7 - 2.0 mmol/L Blood 12/01/2024 5:22 AM CDT 12/01/2024 5:31 AM CDT us Giovanna Ceron MD LAB BLOOD ORDERABLES Leyla l Result [facility] [place] 1 [facility] Department [place] [address] * eGFR (12/01/2024 5:22 AM CDT) eGFR >90 >=60 mL/min/1. 73 m2 [...] interpretive data was last reviewed 2021. Blood 12/01/2024 5:22 AM CDT 12/01/2024 5:31 AM CDT Nelson Chang MD LAB BLOOD ORDERABLES Final Resu lt NAOMIE GOMEZ ([place]) 1 [facility] [place] [address] * (ABNORMAL) Erythrocyte sedimentation rate (12/01/2024 5:22 AM CDT) Erythrocyte sedimentation rate 47(H) 1 - 15 mm/hr Blood 12/01/2024 5:22 AM CDT 12/01/2024 5:30 AM CDT us Nelson Chang MD LAB BLOOD ORDERABLES Final Resu lt NAOMIE GOMEZ ([place]) 1 [facility] [place] [address] * (ABNORMAL) CBC without differential (12/01/2024 5:22 AM CDT) WBC 12.12(H) 3.80 - 9.90 K/cumm Hgb 12.1(L) 13.0 - 17.5 g/dL [facility] ([place]) Hct 34.7(L) 38.9 - 50.3 % [facility] ([place]) Plt 160 150 - 400 K/cumm [facility] ([place]) MPV 10.8 9.1 - 12.3 fL [facility] ([place]) RBC 4.03(L) 4.30 - 5.80 M/cumm [facility] ([place]) MCV 86.1 81.3 - 96.4 fL [facility] ([place]) MCH 30.0 27.1 - 33.[address] [facility] [address] ([place] MCHC 34.9 32.3 - 35.7 g/dL [facility] ([place]) RDW CV 13.2 11.1 - 14.9 % [facility] ([place] RDW SD 40.9 35.7 - 48.[address] [facility] ([place]) NRBC abs 0.00 0.00 - 0.01 K/cumm [facility] ([place]) Blood 12/01/2024 5:22 AM CDT 12/01/2024 5:30 AM CDT us Shannan Garcia NP LAB BLOOD ORDERABLES Final Resul t [facility] ([place] 1 [facility] [place] [address] * (ABNORMAL) CRP (acute phase) (12/01/2024 5:22 AM CDT) CRP 143.0(H) <=10.0 mg/L NAOMIE Santo ([place]) Blood 12/01/2024 5:22 AM CDT 12/01/2024 5:31 AM CDT us Nelson Chang MD LAB BLOOD ORDERABLES Final Resu lt [facility] ([place]) [address] [place] [address] [place] [address] * (ABNORMAL) Hemoglobin A1c (12/01/2024 5:22 AM CDT) Hgb A1C 10.5(H) 4.0 - 5.6 % [facility] ([place]) Estimated Average Glucose 255 mg/dL [facility] ([place]) Comment: The ADA recommends reporting an estimated Average Glucose (eAG) with all Hemoglobin A1c results using the equation derived from a study of 507 normal and diabetic adults. Minority populations were underrepresented and children were not included. (Diabetes Care 31:1347-0098, 2008). The eAG is not equivalent to a fasting glucose. Testing performed by: [facility], [facility], [place], [address] Blood 12/01/2024 5:22 AM CDT 12/01/2024 5:30 AM CDT Shannan Garcia NP LAB BLOOD ORDERABLES Final Resul t Performing Organization Address [facility] Co de Phone Number [facility] ([place]) 1 [facility] Department [place] [address] * (ABNORMAL) Blood gas, venous (12/01/2024 5:22 AM CDT) pH, Venous 7.33 7.32 - 7.43 PCO2, Venous 37(L) 40 - 50 mmHg [facility] ([place]) PO2, Venous 67 mmHg [facility] ([place]) HCO3 Venous, Calculated 19(L) 20 - 30 mmol/L [facility] ([place]) BE, venous -6 mmol/L [facility] ([place]) Comment: Interpretive Data No Reference Range Established Current Interpretive Data was last revised on 2017. Blood 12/01/2024 5:22 AM CDT 12/01/2024 5:31 AM CDT Shannan Garcia NP LAB BLOOD ORDERABLES Final Resul t Performing Organization Address [facility] Co de Phone Number [facility] ([place]) 1 [facility] [place] [address] * (ABNORMAL) Comprehensive metabolic panel (12/01/2024 5:22 AM CDT) Sodium 135 135 - 145 mmol/L [facility] ([place]) Potassium, pl 3.6 3.3 - 4.9 mmol/L [facility] ([place]) Chloride 105 97 - 110 mmol/L [facility] ([place]) CO2 19(L) 22 - 32 mmol/L [facility] ([place]) Anion gap 11 2 - 15 mmol/L [facility] ([place]) BUN 17 6 - 25 mg/dL [facility] ([place]) Creatinine 0.83 0.80 - 1.30 mg/dL [facility] ([place]) Glucose 200(H) 70 - 199 mg/dL [facility] ([place]) [...] interpretive data was last revised 2022. Calcium 8.5 8.5 - 10.3 mg/dL [facility] ([place]) Bilirubin, total 0.8 0.1 - 1.2 mg/dL [facility] ([place]) Protein, pl 6.4(L) 6.5 - 8.5 g/dL [facility] ([place]) Albumin 3.2(L) 3.5 - 5.0 g/dL [facility] ([place]) Alk phos 108 40 - 130 Units/L [facility] ([place]) ALT 33 7 - 55 Units/L [facility] ([place]) AST 24 10 - 50 Units/L [facility] ([place]) Blood 12/01/2024 5:22 AM CDT 12/01/2024 5:31 AM CDT us Nelson Chang MD LAB BLOOD ORDERABLES Final Resu lt [facility] ([place]) 1 [facility] Department of Laboratories [place], [place] [id number] * POCT glucose (12/01/2024 3:14 AM CDT) Glucose, POC 184 70 - 199 mg/dL Blood 12/01/2024 3:14 AM CDT 12/01/2024 3:14 AM CDT us Nelson Chang MD LAB POCT ORDERABLES - DEVICE Fi nal Result Performing Organization Address [facility]/ZIP Co de Phone Number NAOMIE GOMEZ ([place]) 1 [facility] [place] [address] * (ABNORMAL) Sepsis Lactate w/ Reflex (12/01/2024 12:26 AM CDT) Sepsis Lactate 2.5(H) 0.7 - 2.0 mmol/L Blood 12/01/2024 12:2 6 AM CDT 12/01/2024 12:35 AM CDT us Giovanna Ceron MD LAB BLOOD ORDERABLES Leyla l Result Performing Organization Address [facility] Co de Phone Number [facility] ([place]) 1 [facility] [place] [address] * (ABNORMAL) POCT glucose (12/01/2024 12:23 AM CDT) Glucose, POC 248(H) 70 - 199 mg/dL Blood 12/01/2024 12:2 3 AM CDT 12/01/2024 12:23 AM CDT Notinfile Unknown LAB POCT ORDERABLES - DEVICE F inal Result Performing Organization Address [facility] Co de Phone Number [facility] ([place]) 1 [facility] [place] [address] * CT Entire Lower Extremity Left W Contrast (12/01/2024 12:09 AM CDT) Anatomical Region Laterality Modality Lower Extremities Left Computed Tomog fernanda 12/01/2024 12:2 2 AM CDT Narrative 12/01/2024 12:28 AM CDT EXAM DESCRIPTION: CT ENTIRE LOWER EXTREMITY LEFT W CONTRAST REASON FOR STUDY: infection C/o wound to the anterior left lower leg and wound to the bottom of the left foot with redness and swelling on the entire extremity. Hx of diabetes, cellulitis left leg TECHNIQUE: Multidetector CT scan of the left lower extremity was performed after intravenous contrast. Coronal and sagittal images were reconstructed. Dose modulation adjustment of the mA and/or kV has been performed per [facility] protocols according to patient size and indication CONTRAST TYPE/DOSE: 100mL of IOVERSOL 350 MG IODINE/ML INTRAVENOUS SYRINGE injected via intravenous COMPARISON: None FINDINGS: Bones: There is erosion loss of bone of the distal half of the 5th metatarsal which could indicate osteomyelitis. Other bones appear to be intact. No fracture or dislocation is seen. Soft Tissues: Abnormal increased density of the soft tissues of the distal lateral aspect of the foot is concerning for cellulitis. No formed abscess is seen. Diffuse fluid is seen in the subcutaneous tissues of the foot and lower leg suggestive of edema and possibly cellulitis. Deeper soft tissues of the lower leg appear preserved. Other: No other finding. IMPRESSION: 1. Findings are concerning for osteomyelitis of the distal half of the 5th metatarsal. 2. Diffuse edema and possibly cellulitis of the left lower leg and foot. No formed abscess is seen. THIS IS AN ELECTRONICALLY VERIFIED FINAL REPORT 12/01/2024 12:28 AM - Electronically signed by Fabrizio Heath M.D. KH: ALBERTO Report ID: [id number] Reading Location: [id number] Procedure Note Fabrizio Heath MD - 12/01/2024 EXAM DESCRIPTION: CT ENTIRE LOWER EXTREMITY LEFT W CONTRAST REASON FOR STUDY: infection C/o wound to the anterior left lower leg and wound to the bottom of theleft foot with redness and swelling on the entire extremity. Hx of diabetes, cellulitis left leg TECHNIQUE: Multidetector CT scan of the left lower extremity wasperformed after intravenous contrast. Coronal and sagittal images werereconstructed. Dose modulation adjustment of the mA and/or kV has been performed per [facility] protocols according to patient size and indication CONTRAST TYPE/DOSE: 100mL of IOVERSOL 350 MG IODINE/ML INTRAVENOUSSYRINGE injected via intravenous COMPARISON: None FINDINGS: Bones: There is erosion loss of bone of the distal half of the 5th metatarsal which could indicate osteomyelitis. Other bones appear to be intact. No fracture or dislocation is seen. Soft Tissues: Abnormal increased density of the soft tissues of thedistal lateral aspect of the foot is concerning for cellulitis. No formedabscess is seen. Diffuse fluid is seen in the subcutaneous tissues of the foot andlower leg suggestive of edema and possibly cellulitis. Deeper soft tissues ofthe lower leg appear preserved. Other: No other finding. IMPRESSION: 1. Findings are concerning for osteomyelitis of the distal half of the5th metatarsal. 2. Diffuse edema and possibly cellulitis of the left lower leg and foot.No formed abscess is seen. THIS IS AN ELECTRONICALLY VERIFIED FINAL REPORT 12/01/2024 12:28 AM - Electronically signed by Fabrizio Heath M.D. KH: ALBERTO Report ID: [id number] Reading Location: [place] [address] Shannan Garcia NP IMG CT PROCEDURES Final Result * Beta-hydroxybutyrate (11/30/2024 10:41 PM CDT) Beta-Hydroxybut yrate <0.2 <=0.5 mmol/L Comment:Testing performed by : [facility], [address] [place] [address], [facility] Blood 11/30/2024 10:4 1 PM CDT 12/01/2024 9:21 AM CDT Shannan Garcia NP LAB BLOOD ORDERABLES Final Resul t [facility] ([place]) 1 [facility] Department of Laboratories [place], [place] [id number] * (ABNORMAL) Blood gas, venous (11/30/2024 10:41 PM CDT) pH, Venous 7.31(L) 7.32 - 7.43 PCO2, Venous 47 40 - 50 mmHg [facility] ([place]) PO2, Venous 29 mmHg [facility] ([place]) HCO3 Venous, Calculated 23 20 - 30 mmol/L [facility] ([place]) BE, venous -3 mmol/L [facility] ([place]) Comment: Interpretive Data No Reference Range Established Current Interpretive Data was last revised on 2017. Blood 11/30/2024 10:4 1 PM CDT 11/30/2024 10:45 PM CDT us Shannan Garcia NP LAB BLOOD ORDERABLES Final Resul t [facility] ([place]) 1 [facility] [place] [address] * Blood culture Blood (11/30/2024 10:33 PM CDT) Report Final Report: No growth Comment:Testing performed by : [facility], [address] [facility]., [address] Blood 11/30/2024 10:3 3 PM CDT 12/01/2024 12:49 AM CDT Narrative [facility] ([place]) - 12/05/2024 7:00 AM CDT Collection->Peripheral 1. Blood cultures are incubated for 4 days on a continuously monitored blood culture system. The first report of a negative culture is issued within 24 hours of receipt of the specimen in the laboratory. 2. Positive culture results are reported as soon as they are detected. 3. The most important factor for detection of microbes in the setting of bloodstream infection is the volume of blood submitted for culture. Failure to collect an optimal blood volume can result in false negative blood cultures. 4. For pediatric patients, the recommended blood volume to collect follows a weight based strategy. See the electronic test catalog for collection instructions. 5. For positive blood cultures, a rapid molecular test may be performed for organism identification using the carlton ePlex blood culture identification panel for gram positive (BCID-GP) and gram negative (BCID-GN) organisms. This nucleic acid amplification test detects microbial DNA in positive blood culture broth. This assay has been cleared by the [place] Food and Drug Administration and its performance characteristics have been verified by the [facility]. For questions about this culture, contact the Microbiology Laboratory at [phone]. Interpretive data was last revised on 24. us Nelson Chang MD LAB MICROBIOLOGY - [facility] Final Result [facility] ([place]) [facility] Department [place] [address] * XR Chest 1 Vw Portable (If patient hemodynamically UNstable or UNable to ambulate) (11/30/2024 9:10PM CDT) Anatomical Region Laterality Modality Body, Chest N/A Computed Radiogr aphy 11/30/2024 9:14 PM CDT Narrative 11/30/2024 9:14 PM CDT EXAM DESCRIPTION: XR CHEST 1 VIEW REASON FOR STUDY: infection Wound to left leg since November 16. Pain is increasing over time. Pain with inspiration Hx of liver cancer, DM 2 Non smoker TECHNIQUE: Single radiographic view(s) of the chest. COMPARISON: 05/16/2020 FINDINGS: LUNGS: No focal opacity, pleural effusion, or pneumothorax. HEART/MEDIASTINUM: Cardiac silhouette normal in size. Mediastinal and hilar contours appear normal. LINES/TUBES: SURGICAL SERVICES TECH shunt catheter courses down the right chest. BONES: No acute osseous abnormality. IMPRESSION: No acute cardiopulmonary abnormality. THIS IS AN ELECTRONICALLY VERIFIED FINAL REPORT 11/30/2024 9:14 PM - Electronically signed by Heriberto Coleman M.D. AM: AM Report ID: [id number] Reading Location: [id number] Procedure Note Heriberto Coleman MD - 11/30/2024 EXAM DESCRIPTION: XR CHEST 1 VIEW REASON FOR STUDY: infection Wound to left leg since November 16. Pain is increasing over time. Pain with inspiration Hx of liver cancer, DM 2 Non smoker TECHNIQUE: Single radiographic view(s) of the chest. COMPARISON: 05/16/2020 FINDINGS: LUNGS: No focal opacity, pleural effusion, or pneumothorax. HEART/MEDIASTINUM: Cardiac silhouette normal in size. Mediastinal andhilar contours appear normal. LINES/TUBES: SURGICAL SERVICES TECH shunt catheter courses down the right chest. BONES: No acute osseous abnormality. IMPRESSION: No acute cardiopulmonary abnormality. THIS IS AN ELECTRONICALLY VERIFIED FINAL REPORT 11/30/2024 9:14 PM - Electronically signed by Heriberto Coleman M.D. AM: AM Report ID: [id number] Reading Location: [id number] Nelson Chang MD IMG XR PROCEDURES Final Result * (ABNORMAL) Sepsis Lactate w/ Reflex (11/30/2024 9:05 PM CDT) Sepsis Lactate 2.9(H) 0.7 - 2.0 mmol/L Blood 11/30/2024 9:05 PM CDT 11/30/2024 9:07 PM CDT Nelson Chang MD LAB BLOOD ORDERABLES Final Resu lt [facility] [place]) [facility] Department of Laboratories [place] [id number] * eGFR (11/30/2024 9:05 PM CDT) eGFR >90 >=60 mL/min/1. 73 [...] interpretive data was last reviewed 2021. Blood 11/30/2024 9:05 PM CDT 11/30/2024 9:07 PM CDT us Nelson Chang MD LAB BLOOD ORDERABLES Final Resu lt [facility] ([place]) [facility] Department [place] [address] * (ABNORMAL) Differential, auto (11/30/2024 9:05 PM CDT) Neutrophil abs 11.14(H) 1.50 - 6.50 K/cumm Imm gran abs 0.06 0.00 - 0.10 K/cumm [facility] ([place]) Lymphocyte abs 0.78(L) 0.80 - 3.30 K/cumm [facility] ([place]) Monocyte abs 0.63 0.20 - 0.80 K/cumm [facility] ([place]) Eosinophil abs 0.04 0.00 - 0.50 K/cumm [facility] ([place]) Basophil abs 0.04 0.00 - 0.10 K/cumm [facility] ([place]) Neutrophil pct 87.8 % [facility] ([place]) Comment: Interpretive Data Percent cell count reference ranges are not reported, since discordance with absolute values may lead to misinterpretation of CBC data. Current Interpretive Data was last revised on 2017. Imm gran pct 0.5 % [facility] ([place]) Comment: Interpretive Data Percent cell count reference ranges are not reported, since discordance with absolute values may lead to misinterpretation of CBC data. Current Interpretive Data was last revised on 2017. Lymphocyte pct 6.1 % [facility] ([place]) Comment: Interpretive Data Percent cell count reference ranges are not reported, since discordance with absolute values may lead to misinterpretation of CBC data. Current Interpretive Data was last revised on 2017. Monocyte pct 5.0 % [facility] ([place]) Comment: Interpretive Data Percent cell count reference ranges are not reported, since discordance with absolute values may lead to misinterpretation of CBC data. Current Interpretive Data was last revised on 2017. Eosinophil pct 0.3 % [facility] ([place]) Comment: Interpretive [...] Data was last revised on 2017. Blood 11/30/2024 9:05 PM CDT 11/30/2024 9:07 PM CDT us Nelson Chang MD LAB BLOOD ORDERABLES Final Resu lt [facility] ([place]) [facility] Department [place] [address] * (ABNORMAL) CBC with auto differential (11/30/2024 9:05 PM CDT) WBC 12.69(H) 3.80 - 9.90 K/cumm Hgb 13.9 13.0 - 17.5 g/dL [facility] ([place]) Hct 39.5 38.9 - 50.3 % [facility] ([place]) Plt 174 150 - 400 K/cumm [facility] ([place]) MPV 11.1 9.1 - 12.3 fL [facility] ([place]) RBC 4.57 4.30 - 5.80 M/cumm [facility] ([place]) MCV 86.4 81.3 - 96.4 fL [facility] ([place]) MCH 30.4 27.1 - 33.3 pg [facility] ([place]) MCHC 35.2 32.3 - 35.7 g/dL [facility] ([place]) RDW CV 13.2 11.1 - 14.9 % [facility] ([place]) RDW SD 40.5 35.7 - 48.1 fL [facility] ([place]) NRBC abs 0.00 0.00 - 0.01 K/cumm [facility] ([place]) Blood 11/30/2024 9:05 PM CDT 11/30/2024 9:07 PM CDT Nelson Chang MD LAB BLOOD ORDERABLES Final Resu lt [facility] ([place] Department [place] [address] * Blood culture Blood (11/30/2024 9:05 PM CDT) Report Final Report: No growth Comment:Testing performed by : [facility], [address] [place]., [address] Blood 11/30/2024 9:05 PM CDT 12/01/2024 12:49 AM CDT Narrative [facility] ([place]) - 12/05/2024 7:00 AM CDT From a different site than #1. Collection->Peripheral 1. Blood cultures are incubated for 4 days on a continuously monitored blood culture system. The first report of a negative culture is issued within 24 hours of receipt of the specimen in the laboratory. 2. Positive culture results are reported as soon as they are detected. 3. The most important factor for detection of microbes in the setting of bloodstream infection is the volume of blood submitted for culture. Failure to collect an optimal blood volume can result in false negative blood cultures. 4. For pediatric patients, the recommended blood volume to collect follows a weight based strategy. See the electronic test catalog for collection instructions. 5. For positive blood cultures, a rapid molecular test may be performed for organism identification using the carl[facility] ePlex blood culture identification panel for gram positive (BCID-GP) and gram negative (BCID-GN) organisms. This nucleic acid amplification test detects microbial DNA in positive blood culture broth. This assay has been cleared by the [place] Food and Drug Administration and its performance characteristics have been verified by the [facility]. For questions about this culture, contact the Microbiology Laboratory at [phone]. Interpretive data was last revised on 24. us Nelson Chang MD LAB MICROBIOLOGY - [facility] Final Result [facility] ([place]) [facility] Department [place] [address] * (ABNORMAL) Comprehensive metabolic panel (11/30/2024 9:05 PM CDT) Sodium 128(L) 135 - 145 mmol/L [facility] ([place]) Potassium, pl 4.0 3.3 - 4.9 mmol/L [facility] ([place]) Chloride 95(L) 97 - 110 mmol/L [facility] ([place]) CO2 18(L) 22 - 32 mmol/L [facility] ([place]) Anion gap 15 2 - 15 mmol/L [facility] ([place]) BUN 20 6 - 25 mg/dL [facility] ([place]) Creatinine 0.96 0.80 - 1.30 mg/dL [facility] ([place]) Glucose 548(C) 70 - 199 mg/dL [facility] ([place]) Comment: Critical Result called by [id number] at 2024-11-30 21:47:32. Result Read Back by Vic Ku ED Interpretive Data Fasting glucose >/= 126 mg/dl [...] interpretive data was last revised 2022. Calcium 9.3 8.5 - 10.3 mg/dL [facility] ([place]) Bilirubin, total 1.4(H) 0.1 - 1.2 mg/dL [facility] ([place]) Protein, pl 7.3 6.5 - 8.5 g/dL [facility] ([place]) Albumin 3.7 3.5 - 5.0 g/dL [facility] ([place]) Alk phos 144(H) 40 - 130 Units/L [facility] ([place]) ALT 36 7 - 55 Units/L [facility] ([place]) AST 27 10 - 50 Units/L [facility] ([place]) Blood 11/30/2024 9:05 PM CDT 11/30/2024 9:07 PM CDT us Nelson Chang MD LAB BLOOD ORDERABLES Final Resu lt [facility] ([place]) [facility] [place] [address] * (ABNORMAL) RetinaVue Scanner - OU - Both Eyes (06/12/2024) Anatomical Region Laterality Modality Head Fundus Photograp hy 06/12/2024 us Mil Angeles DO OPHTH PHOTOGRAPHY Final Res ult * (ABNORMAL) Lipid panel (02/20/2024 9:41 PM CDT) Cholesterol 135 30 - 199 mg/dL Comment: Interpretive Data Ages < or = 19 years Acceptable: <170 mg/dL Borderline high: 170-199 mg/dL High: >or= 200 mg/dL Ages > or = 20 years Desirable: <200 mg/dL Borderline high: 200-239 mg/dL High: >or= 240 mg/dL Literature References: 1. Expert Panel on Integrated Guidelines for Cardiovascular Health and Risk Reduction in Children and Adolescents. Pediatrics 2011;128:S213 2. NCEP Expert Panel. Circulation 2004;110:227 Current Interpretive Data was last revised on 2018. Triglycerides 78 <=149 mg/dL [facility] ([place]) Comment: Interpretive Data Ages < or = 9 years Acceptable: <75 mg/dL Borderline high: 75-99 mg/dL High: >or= 100 mg/dL Ages 10 to 20 years Acceptable: <90 mg/dL Borderline high: 90-129 mg/dL High: >or= 130 mg/dL Ages > or = 20 years Desirable: <150 mg/dL Borderline high: 150-199 mg/dL High: 200-499 mg/dL Very high: >or= 499 mg/dL Literature References: 1. Expert Panel on Integrated Guidelines for Cardiovascular Health and Risk Reduction in Children and Adolescents. Pediatrics 2011;128:S213 2. NCEP Expert Panel. Circulation 2004;110:227 Current Interpretive Data was last revised on 2018. HDL 37(L) >=40 mg/dL [facility]) Comment: Interpretive Data Ages < or = 19 years Acceptable: >45 mg/dL Borderline low: 40-45 mg/dL Low: <40 mg/dL Ages > or = 20 years Desirable: >or= 60 mg/dL Low: <40 mg/dL Literature References: 1. Expert Panel on Integrated Guidelines for Cardiovascular Health and Risk Reduction in Children and Adolescents. Pediatrics 2011;128:S213 2. NCEP Expert Panel. Circulation 2004;110:227 Current Interpretive Data was last revised on 2018. LDL, calculated 83 <=129 mg/dL [facility] ([place]) Comment: Interpretive Data Ages < or = 19 years Acceptable: <110 mg/dL Borderline high: 110-129 mg/dL High: >or= 130 mg/dL Ages > or = 20 years Optimal: <100 mg/dL Near optimal: 100-129 mg/dL Borderline high: 130-159 mg/dL High: >160 mg/dL Calculated using the Forrest LDL-C estimating equation. This equation was implemented on 2024. Prior to this date LDL-C was estimated using the Friedewald equation. Literature References: 1. Expert Panel on Integrated Guidelines for Cardiovascular Health and Risk Reduction in Children and Adolescents. Pediatrics 2011;128:S213 2. NCEP Expert Panel. Circulation 2004;110:227 3. Forrest Shepherd et al. REED Cardiol. 2020 September 14;5(5):540-548. doi: 10.1001/jamacardio.2020.0013 Current Interpretive Data was last revised on 2024. Non-HDL Cholesterol 98 mg/dL [facility] ([place]) Comment: Interpretive Data Ages < or = 19 years Acceptable: <120 mg/dL Borderline high: 120-144 mg/dL High: >145 mg/dL Ages > or = 20 years When triglycerides are >200 mg/dL, Non-HDL cholesterol is a secondary target of therapy with treatment goals that are 30 mg/dL greater than the LDL cholesterol target. Literature References: 1. Expert Panel on Integrated Guidelines for Cardiovascular Health and Risk Reduction in Children and Adolescents. Pediatrics 2011;128:S213 2. NCEP Expert Panel. Circulation 2004;110:227 Current Interpretive Data was last revised on 2018. Chol/HDL ratio 4 [facility] ([place]) Blood 02/20/2024 9:41 PM CDT 02/20/2024 9:54 PM CDT us Dorys Jones MD LAB BLOOD ORDERABLES Final Res ult [facility] ([place]) [facility] Department [place] [address] from Last 3 Months or Most Recently Relevant to Health Maintenance Insurance [employer] MEDICARE GOLD IDPA Advance Directives For more information, please contact: [phone] * Full Code (Latest Code Status on File) Date Activated Date Inactivated Comments 12/27/2024 5:37 AM 12/28/2024 5:54 PM * Full Code Date Activated Date Inactivated Comments 12/27/2024 12:12 AM 12/27/2024 5:37 AM * Full Code Date Activated Date Inactivated Comments 12/15/2024 2:57 PM 12/20/2024 5:54 PM * Full Code Date Activated Date Inactivated Comments 12/05/2024 2:06 PM 12/06/2024 10:00 PM * Full Code Date Activated Date Inactivated Comments 12/01/2024 3:15 AM 12/05/2024 2:06 PM Care Teams Car [employer]ental Agency Manager Relationship Specialty Start Date End Date Irene Larkin [employer] ATTENDANT [address] [facility] [address] [place] [address] PCP - General Family Medicine 08/31/24 Toribio Wolfe MD Consulting Physician Cardiovascular Disease 02/22/24 Lilibeth Swanson NP Nurse Practitioner Endocrinology Diabetes & Metabolism 02/22/24 Tera Yousif MD [address] [place] [address] [address] [place] [address] Consulting Physician Gastroenterology 02/22/24 Sandie Ramirez DPM [address] [address] Consulting Physician Foot and Ankle Surg 02/22/24 Tarun Dunham MD [address] [place] [address] [address] [place] [address] Consulting Physician Hematology and Oncology 02/22/24 Galileo Reese DPM [address] [place] [address] Consulting Physician Foot and Ankle Surg 05/25/24 Allan Tang MD [address] [address] Consulting Physician Infectious Diseases 07/06/24
[2025-02-09 09:11] VITALS: BP 134/88; PULSE 87; RESP 16; TEMP 36.8; O2SAT 99
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
--- OUTSIDE RECORDS SUMMARY | 2025-02-09 10:29 | XMS_ITS | Clinical Summary ---
Author Organization [facility] Address [address] [place] [address] Care Team Providers Care Assembly Operator Name Role Phone Toribio Wolfe MD Unavailable [phone] Lilibeth Swanson NP Unavailable [phone] Tera Yousif MD Unavailable [phone] Sandie Ramirez DPM Unavailable [phone] Tarun Dunham MD Unavailable [phone] Galileo Reese DPM Unavailable [phone] Allan Tang MD Unavailable [phone] Irene Larkin NP Primary Care Provider Allergies [...] hyperglycemia, with long-term current use of insulin ([facility]) Inject 0.5 mL (7.5 mg total) [...] follows with Oncology Tinea unguium 05/06/2024 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 Osteomyelitis of left foot 02/21/2024 [...] -Chronic, controlled -Follow[place] with [facility] [place] -Currently takes prazosin 4 mg nightly, trazodone 300 mg nightly for associated nightmares -Patient endorses adequate relief with current regimen -Continue current treatment plan Assessment & Plan (09/01/2024 12:47 PM CDT): -Chronic, controlled -Follows with psychiatry at the [place] -Currently takes prazosin 4 mg nightly, trazodone [...] -Chronic, controlled -Follows with [facility]ry at [facility] [place] -Currently takes prazosin 4 mg nightly, trazodone 300 mg nightly for associated nightmares -Patient endorses adequate relief with current regimen -Continue current treatment plan Assessment & Plan (09/01/2024 12:47 PM CDT): -Chronic, controlled -Follows with [facility]ry at [place] -Currently takes prazosin 4 mg nightly, trazodone [...] healthy, regular cycles, no IUDs, PID or inverted block operator surgery. Her AMH is low). Her general inverted block operator provider is Dr Felix. The couple have [...] CDT - 02/07/2025 11:29 PM CDT Emergency [facility] Emergency Department [address] [place] [address] Shortness of breath (Primary Dx) Discharge Disposition: Discharge to home or self care 01/25/2025 Telephone [facility] Primary Care at [address] [phone] Irene Larkin NP 01/22/2025 Results Follow-Up [facility] Primary Care at [address] [phone] Irene Larkin, MATTHEW Albumin Creatinine Ratio, Urine 01/19/2025 1:52 PM CDT - 01/19/2025 11:59 PM CDT Hospital Encounter [address] [address] Type 2 diabetes mellitus with hyperglycemia, with long-term current use of insulin (HCC) Discharge Disposition: Discharge to home or self care 01/19/2025 12:30 PM CDT Office Visit [facility] Primary Care at [address] [phone] Irene Larkin, MATTHEW Preventative health care (Primary [...] 01/17/2025 10:00 AM CDT Home Care Visit [address] [place] [address] Chely Powell SN OASIS DISCHARGE 01/12/2025 Orders Only [facility] Medical [facility] Primary Care at [address] [phone] Irene Larkin, MATTHEW Type 2 diabetes mellitus with hyperglycemia, with long-term current use of insulin (HCC) (Primary Dx) 01/11/2025 12:30 PM CDT Home Care Visit [address] [place] [address] Chely Powell SN HOME VISIT 01/05/2025 11:00 AM CDT Home Care Visit [address] [place] [address] Andree Lundy, RN SN HOME VISIT 01/01/2025 12:00 PM CDT Home Care Visit [address] [place] [address] Moni Spencer, [facility] CLINICAL SPECIALIST VASCULAR INITIAL EVAL 01/01/2025 Home Care Visit [address] [place] [address] Moni Spencer, [facility] CLINICAL SPECIALIST VASCULAR DISCIPLINE DISCHARGE 01/01/2025 Home Care Visit [address] [place] [address] Moni Spencer, [facility] CASE COMMUNICATION 12/31/2024 Home Care Visit [address] [place] [address] Moni Spencer, [facility] CASE COMMUNICATION 12/30/2024 12:30 PM CDT Home Care Visit [address] [place] [address] Chely Powell SN INITIAL EVALUATION 12/29/2024 12:30 PM CDT Home Care Visit [address] [place] [address] Chely Daniels, PT PT OASIS RESUMPTION OF CARE 12/29/2024 Plan of Care Documentation [address] [place] [address] 12/28/2024 Home Care Visit [address] [place] [address] Andree Lundy, RN SN OASIS TRANSFER W/OUT DC 12/26/2024 10:49 PM CDT - 12/28/2024 1:54 PM CDT Hospital Encounter [facility] Medicine 1 [place] [address] Liam Powell MD Abbas, Shazia, MD Nations, Luis Oliva, DO Hyperglycemia due to diabetes mellitus (HCC) (Primary Dx); Osteomyelitis of left foot, unspecified type (HCC); Polyneuropathy Discharge Disposition: Discharge to home, home health skilled care 12/26/2024 11:30 AM CDT Home Care Visit [address] [place] [address] Andree Lundy, RN SN HOME VISIT 12/26/2024 Home Care Visit [address] [place] [address] Andree Lundy, RN CARE CONFERENCE 12/23/2024 11:30 AM CDT Home Care Visit [address] [address] [address] [place] [address] Lulú Diaz, PT PT INITIAL EVALUATION 12/23/2024 Home Care Visit [address] [address] [place] [address] Lulú Diaz, PT CASE COMMUNICATION 12/22/2024 9:00 AM CDT Home Care Visit [address] [address] [place] [address] Dorina Calle, RN SN OASIS START OF CARE 12/22/2024 Plan of Care Documentation [address] [address] [place] [address] 12/22/2024 Telephone [facility] Primary Care at [place] [address] [facility] [address] [place] [phone] Irene Larkin NP Additional Services Or Orders 12/20/2024 Telephone [facility] Home Care Services [address] [place] [address] Kimberly Schwartz MA 12/15/2024 1:04 PM CDT - 12/20/2024 1:25 PM CDT Hospital Encounter [facility] [address] [place] [address] Jh Cheema MD Sargsyan, Narine, MD Nations, Luis Oliva DO Cellulitis of left lower extremity (Primary Dx); Other acute osteomyelitis of left foot (HCC) Discharge Disposition: Discharge to home, home health skilled care 12/13/2024 [facility] Post Discharge Follow up phone call [facility] [address] [place] [address] Nancy Boss 12/05/2024 12:13 PM CDT Anesthesia Event [facility] Operating Room [address] [place] [address] Misa Mar MD Alexander, Jeffrey Michael, DO 12/05/2024 12:00 PM CDT - 12/05/2024 1:00 PM CDT Surgery [facility] Operating Room [address] [place] [address] Sandie Ramirez, DPJoao RESECTION OF OSTEOMYELITIS LEFT FIFTH BONE METATARSAL 11/30/2024 9:46 PM CDT - 12/06/2024 6:00 PM CDT Hospital Encounter [address] [address] Nelson Chang MD Fasick, DO Sirisha Mata [...] Grandfather Yordy Relation Name Status Comments Father [place] Father's Brother Noman Maternal Grandmother Eleata Mother [...] materials from doctor or pharmacy Never 01/17/2025 [facility] Utilities Answer Date Recorded In the past 12 months has e [employer], gas, oil, or water Locately threatened to shut off services in your [...] Never 12/18/2024 How often do you attend [facility] or mandaen services? Never 12/18/2024 Do you belong to any clubs o r organizations such as rastafari groups, unions, fraternal or athletic groups, or [...] staff should administer the PHQ-9) 0 01/19/2025 [facility] - Occupational Stress [...] any time in the past 12 m [facility], were you homeless or living in a alf (including now)? No 12/18/2024 AUDIT-C Answer Date [...] Master's degree (e.g., MA, MS, Carmen, MEd, CLINICAL SPECIALIST VASCULAR, TRACEY) 05/18/2024 Sex and Gender Information Value [...] DEVICE Routine 12/05/2024 1 :01 PM CDT IA AN ELECTIVE SUPRAGLOTTIC AIRWAY Routine 12/05/2024 12:27 [...] F inal Result [facility] ([place]) 1 [facility] [place] [address] * (ABNORMAL) Troponin T high-sensitivity 2-hour (02/07/2025 10:18 PM CDT) Pathologist [facility] Trop T hs 24(H) <=22 ng/L NAOMIE [...] BLOOD ORDERABLES Final R esult [facility] ([place]) 1 [facility] [place] [address] * XR Chest 1 Vw Portable (If [...] Jon Linn M.D. AT: AT Report ID: [id number] Reading Location: [id number] Procedure Note Jon Linn MD - 02/07/2025 [...] Jon Linn M.D. AT: AT Report ID: [id number] Reading Location: [id number] Jh Cheema MD IMG XR PROCEDURES Final Resu lt * (ABNORMAL) Troponin T high-sensitivity series (baseline, 2hr, 4hr, 6hr) (02/07/2025 8:08 PM CDT) Trop T hs 25(H) <=22 ng/L [facility] ([place]) Comment: Interpretive Data For further hscTnT resources including the diagnostic algorithm and an aid in interpretation, copy and paste this link: https://nrl.testcatalog.org/show/hsTrop Current Interpretive Data last revised 2020. Blood 02/07/2025 8:08 PM CDT 02/07/2025 8:21 PM CDT Jh Cheema MD LAB BLOOD ORDERABLES Final R esult [facility] ([place]) 1 [facility] [place] [address] * eGFR (02/07/2025 8:08 PM CDT) eGFR [...] LAB BLOOD ORDERABLES Final R esult [facility] ([place]) 1 [facility] [place] [address] * Differential, auto (02/07/2025 8:08 PM CDT) [...] Final R esult [facility] ([place]) 1 [facility] [place] [address] * CBC with auto differential (02/07/2025 8:08 PM CDT) WBC 9.41 3.80 - 9.90 K/cumm Hgb 14.4 13.0 - 17.5 g/dL [facility] ([place]) Hct 41.1 38.9 - 50.3 % [facility] [...] NRBC abs 0.00 0.00 - 0.01 K/cumm [facility] Blood 02/07/2025 8:08 PM CDT 02/07/2025 8:21 PM CDT us Jh Cheema MD LAB BLOOD ORDERABLES Final R esult [facility] 1 [facility] [place] [address] * (ABNORMAL) Comprehensive metabolic panel (02/07/2025 8:08 PM CDT) Sodium 139 135 - 145 mmol/L [facility] Potassium, pl 3.9 3.3 - 4.9 mmol/L [facility] ([place]) Chloride 107 97 - 110 mmol/L [facility] CO2 18(L) 22 - 32 mmol/L [facility] ([place]) Anion gap 14 2 - 15 mmol/L [facility] ([place]) BUN 21 6 - 25 mg/dL [facility]) Creatinine 0.85 [...] Final R esult [facility] ([place]) 1 [facility] [place] [address] * ECG 12 lead (02/07/2025 8:04 PM CDT) 02/07/2025 8:04 PM CDT Narrative [facility] - 02/08/2025 10:59 AM CDT Vent Rate: 103 bpm RR Interval: 578 msec IA Interval: 157 msec QRS Duration: 98 msec QT Interval: 323 msec QTC Interval: 383 msec P-R-T [place]: 9 - -26 - 31 degrees IMPRESSION: SINUS TACHYCARDIA BORDERLINE LEFT AXIS DEVIATION [QRS AXIS < -20] VOLTAGE CRITERIA FOR LVH [MEETS CRITERIA IN ONE OF: R(aVL), S(V1), R(V5), R(V5/V6)+S(V1)] NONSPECIFIC T-WAVE ABNORMALITY ABNORMAL ECG NO CHANGE FROM PREVIOUS TRACING NOTED Electronically Signed By: Leonardo Bynum MD us Jh Cheema MD ECG ORDERABLES Final Result Performing Organization Address City/[facility] Co de Phone Number [facility] * (ABNORMAL) Albumin Creatinine Ratio, Urine (01/19/2025 [...] ORDERABLES Fi nal Result Performing Organization Address [facility] Co de Phone Number [facility] [address] [place] [address] * (ABNORMAL) POCT glucose (12/28/2024 11:16 AM CDT) Glucose, POC 287(H) 70 - 199 mg/dL Blood 12/28/2024 11:1 6 AM CDT 12/28/2024 11:16 AM CDT Luis Langford DO LAB POCT ORDERABLES - DEVICE Final Result Performing Organization Address City/[facility] Co de Phone Number [facility] ([place]) 1 [facility] [place] [address] * POCT glucose (12/28/2024 7:32 AM CDT) Glucose, POC 168 70 - 199 mg/dL Blood 12/28/2024 7:32 AM CDT 12/28/2024 7:32 AM CDT us Luis Pj Langford DO LAB POCT ORDERABLES - DEVICE Final Result Performing Organization Address City/[facility] Co de Phone Number [facility] ([place]) 1 [facility] [place] [address] * eGFR (12/28/2024 4:13 AM CDT) eGFR [...] ORDERABLES Final Resul t Performing Organization Address City/[facility]/ZIP Co de Phone Number [facility] ([place]) 1 [facility] [place] [address] * CBC without differential (12/28/2024 4:13 AM [...] Final Resul t [facility] ([place]) 1 [facility] [place] [address] * (ABNORMAL) Basic metabolic panel (12/28/2024 4:13 [...] ORDERABLES Final Resul t Performing Organization Address City/[facility]/ZIP Co de Phone Number [facility] ([place]) 1 [facility] [place] [address] * (ABNORMAL) POCT glucose (12/28/2024 3:27 AM CDT) Glucose, POC 223(H) 70 - 199 mg/dL Blood 12/28/2024 3:27 AM CDT 12/28/2024 3:27 AM CDT Luis Langford DO LAB POCT ORDERABLES - DEVICE Final Result [facility] ([place]) 1 [facility] [place] [address] * (ABNORMAL) POCT glucose (12/27/2024 11:38 PM CDT) Glucose, POC 273(H) 70 - 199 mg/dL Blood 12/27/2024 11:3 8 PM CDT 12/27/2024 11:38 PM CDT Luis Langford DO LAB POCT ORDERABLES - DEVICE Final Result [facility] ([place]) 1 [facility] [place] [address] * (ABNORMAL) POCT glucose (12/27/2024 7:20 PM CDT) Glucose, POC 275(H) 70 - 199 mg/dL Blood 12/27/2024 7:20 PM CDT 12/27/2024 7:20 PM CDT Luis Langford DO LAB POCT ORDERABLES - DEVICE Final Result Performing Organization Address City/[facility]/ZIP Co de Phone Number [facility] ([place]) 1 [facility] [place] [address] * (ABNORMAL) POCT glucose (12/27/2024 4:39 PM CDT) Glucose, POC 206(H) 70 - 199 mg/dL Blood 12/27/2024 4:39 PM CDT 12/27/2024 4:39 PM CDT Luis Langford DO LAB POCT ORDERABLES - DEVICE Final Result Performing Organization Address City/[facility]/ZIP Co de Phone Number [facility] ([place]) 1 [facility] [place] [address] * (ABNORMAL) POCT glucose (12/27/2024 11:00 AM CDT) Glucose, POC 207(H) 70 - 199 mg/dL Blood 12/27/2024 11:0 0 AM CDT 12/27/2024 11:00 AM CDT Luis Langford DO LAB POCT ORDERABLES - DEVICE Final Result [facility] ([place]) 1 [facility] [place] [address] * Blood culture Blood Peripheral (12/27/2024 7:32 AM CDT) Report Final Report: No growth Comment:Testing performed by : [facility], [address] [place]., [address] Blood (Peripheral) 12/27/2024 7:32 AM CDT 12/27/2024 [...] performance characteristics have been verified by the [facility] Microbiology Laboratory. For questions about this culture, contact the Microbiology Laboratory at [phone]. Interpretive data was last revised on 24. us Liam Powell MD LAB MICROBIOLOGY - GENERAL ORD ERABLES Final Result [facility] ([place]) 1 [facility] [place] [address] * Erythrocyte sedimentation rate (12/27/2024 7:32 AM CDT) Erythrocyte sedimentation rate 14 1 - 15 mm/hr Comment:Testing performed by : [facility], [address] [place] [address], [place]., [address] Blood 12/27/2024 7:32 AM CDT 12/27/2024 8:24 AM CDT us Dominique Burger MD LAB BLOOD ORDERABLES Final Resul t Performing Organization Address [facility]/ZIP Co de Phone Number [facility] 1 [facility] [place] [address] * CRP (acute phase) (12/27/2024 7:32 AM CDT) [facility] CRP <3.0 <=10.0 mg/L [facility] ([place]) Blood 12/27/2024 7:32 AM CDT 12/27/2024 8:24 AM CDT Dominique Burger MD LAB BLOOD ORDERABLES Final Resul t Performing Organization Address [facility] Co de Phone Number [facility] 1 [facility] [place] [address] * (ABNORMAL) POCT glucose (12/27/2024 7:27 AM CDT) [facility] Glucose, POC 218(H) 70 - 199 mg/dL Blood 12/27/2024 7:27 AM CDT 12/27/2024 7:27 AM CDT Luis Langford DO LAB POCT ORDERABLES - DEVICE Final Result [facility] ([place]) 1 [facility] [place] [address] * eGFR (12/27/2024 5:25 AM CDT) Pathologist [facility] eGFR >90 >=60 mL/min/1. 73 m2 Comment: [...] Final Res ult [facility] ([place]) 1 [facility] [place] [address] * Blood culture Blood Peripheral (12/27/2024 5:25 AM CDT) Report Final Report: No growth Comment:Testing performed by : [facility], [address] [facility], [place]., [address] Blood (Peripheral) 12/27/2024 5:25 AM CDT 12/27/2024 [...] performance characteristics have been verified by the [facility] Microbiology Laboratory. For questions about this culture, contact the Microbiology Laboratory at [phone]. Interpretive data was last revised on 24. us Liam Powell MD LAB MICROBIOLOGY - GENERAL ORD ERABLES Final Result [facility] ([place]) 1 [facility] [place] [address] * (ABNORMAL) Basic metabolic panel (12/27/2024 5:25 [...] Calcium 9.1 8.5 - 10.3 mg/dL [facility] ([place]) Blood 12/27/2024 5:25 AM CDT 12/27/2024 5:30 AM CDT us Liam Powell MD LAB BLOOD ORDERABLES Final Res ult Performing Organization Address [facility]/ZIP Co de Phone Number [facility] 1 [facility] [place] [address] * (ABNORMAL) POCT glucose (12/27/2024 1:46 AM CDT) Glucose, POC 247(H) 70 - 199 mg/dL Blood 12/27/2024 1:46 AM CDT 12/27/2024 1:46 AM CDT Dominique Burger MD LAB POCT ORDERABLES - DEVICE Fin al Result Performing Organization Address [facility] Co de Phone Number [facility] 1 [facility] [place] [address] * (ABNORMAL) POCT glucose (12/27/2024 12:13 AM CDT) Glucose, POC 308(H) 70 - 199 mg/dL Blood 12/27/2024 12:1 3 AM CDT 12/27/2024 12:13 AM CDT Dominique Burger MD LAB POCT ORDERABLES - DEVICE Fin al Result Performing Organization Address City/[facility] Co de Phone Number [facility] 1 [facility] [place] [address] * (ABNORMAL) Urinalysis reflex to microscopic and [...] tendency for uric acid stone formation. Source: [facility] [place] Current Interpretive Data was last revised on [...] - GENERAL ORD ERABLES Final Result [facility] ([place]) 1 [facility] [place] [address] * (ABNORMAL) Urinalysis, microscopic only (12/26/2024 11:50 [...] URINE ORDERABLES Final Res ult [facility] ([place]) 1 [facility] [place] [address] * Sepsis Lactate w/ Reflex (12/26/2024 11:45 PM CDT) Sepsis Lactate 2.0 0.7 - 2.0 mmol/L Blood 12/26/2024 11:4 5 PM CDT 12/26/2024 11:53 PM CDT Liam Powell MD LAB BLOOD ORDERABLES Final Res ult Performing Organization Address City/[facility] Co de Phone Number [facility] ([place]) 1 [facility] [place] [address] * XR Foot Left 3 or More [...] signed by Fabrizio DOMINGUEZ: ALBERTO Report ID: [id number] Reading Location: [place] [address] Procedure Note Fabrizio Heath MD - 12/26/2024 [...] erosion of the distal aspect of the [id number] metatarsal concerning for developing osteomyelitis. No fracture [...] signed by Fabrizio DOMINGUEZ: ALBERTO Report ID: [id number] Reading Location: [place] [address] Liam Powell MD IMG XR PROCEDURES Final Result * (ABNORMAL) POCT glucose (12/26/2024 11:20 PM CDT) Glucose, POC 394(H) 70 - 199 mg/dL Blood 12/26/2024 11:2 0 PM CDT 12/26/2024 11:20 PM CDT Liam Powell MD LAB POCT ORDERABLES - DEVICE F inal Result [facility] ([place]) [address] [place] [address] [place] [address] * eGFR (12/26/2024 10:09 PM CDT) [facility] eGFR >90 >=60 mL/min/1. 73 m2 [...] BLOOD ORDERABLES Final Res ult [facility] ([place]) 1 [facility] [place] [address] * Differential, auto (12/26/2024 10:09 PM CDT) [facility] Neutrophil abs 4.51 1.50 - 6.50 [...] Final Res ult [facility] ([place]) 1 [facility] [place] [address] * CBC with auto differential (12/26/2024 10:09 [...] Final Res ult [facility] ([place]) 1 [facility] [place] [address] * (ABNORMAL) Comprehensive metabolic panel (12/26/2024 10:09 [...] [facility] ([place]) Comment: Critical Result called by [email or web address] at 2024-12-26 22:53:28. Result Read Back by [...] Final Res ult [facility] ([place]) 1 [facility] [place] [address] * POCT glucose (12/20/2024 11:53 AM CDT) Glucose, POC 98 70 - 199 mg/dL Blood 12/20/2024 11:5 3 AM CDT 12/20/2024 11:53 AM CDT Luis Langford DO LAB POCT ORDERABLES - DEVICE Final Result [facility] ([place]) 1 [facility] [place] [address] * POCT glucose (12/20/2024 8:03 AM CDT) Glucose, POC 127 70 - 199 mg/dL Blood 12/20/2024 8:03 AM CDT 12/20/2024 8:03 AM CDT Luis Langford DO LAB POCT ORDERABLES - DEVICE Final Result Performing Organization Address City/[facility] Co de Phone Number [facility] ([place]) 1 [facility] [place] [address] * eGFR (12/20/2024 2:24 AM CDT) eGFR [...] MD LAB BLOOD ORDERABLES Final Re sult [facility] ([place]) 1 [facility] [place] [address] * (ABNORMAL) Basic metabolic panel (12/20/2024 2:24 [...] BLOOD ORDERABLES Final Re sult [facility] ([place]) 1 [facility] [place] [address] * POCT glucose (12/20/2024 1:51 AM CDT) Glucose, POC 140 70 - 199 mg/dL Blood 12/20/2024 1:51 AM CDT 12/20/2024 1:51 AM CDT us Luis Langford DO LAB POCT ORDERABLES - DEVICE Final Result Performing Organization Address [facility] Co de Phone Number [facility] ([place]) 1 [facility] [place] [address] * (ABNORMAL) POCT glucose (12/19/2024 8:17 PM CDT) Glucose, POC 277(H) 70 - 199 mg/dL Blood 12/19/2024 8:17 PM CDT 12/19/2024 8:17 PM CDT us Luis Langford DO LAB POCT ORDERABLES - DEVICE Final Result Performing Organization Address City/[facility]/ZIP Co de Phone Number [facility] ([place]) 1 [facility] [place] [address] * POCT glucose (12/19/2024 5:03 PM CDT) Glucose, POC 165 70 - 199 mg/dL Blood 12/19/2024 5:03 PM CDT 12/19/2024 5:03 PM CDT us Luis Langford DO LAB POCT ORDERABLES - DEVICE Final Result [facility] ([place]) [address] [place] [address] * POCT glucose (12/19/2024 12:00 PM CDT) Glucose, POC 191 70 - 199 mg/dL Blood 12/19/2024 12:0 0 PM CDT 12/19/2024 12:00 PM CDT Luis Langford DO LAB POCT ORDERABLES - DEVICE Final Result [facility] ([place]) [address] [place] [address] * (ABNORMAL) POCT glucose (12/19/2024 7:39 AM CDT) Glucose, POC 209(H) 70 - 199 mg/dL Blood 12/19/2024 7:39 AM CDT 12/19/2024 7:39 AM CDT Luis Langford DO LAB POCT ORDERABLES - DEVICE Final Result Performing Organization Address City/[facility]/ZIP Co de Phone Number [facility] ([place]) 1 [place] [address] * eGFR (12/19/2024 2:11 AM CDT) eGFR [...] Final Re sult [facility] ([place]) 1 [facility] [place] [address] * (ABNORMAL) Basic metabolic panel (12/19/2024 2:11 [...] ORDERABLES Final Re sult Performing Organization Address City/[facility]/ZIP Co de Phone Number [facility]IE [facility] ([place]) 1 [facility] [place] [address] * (ABNORMAL) POCT glucose (12/19/2024 1:44 AM CDT) Glucose, POC 292(H) 70 - 199 mg/dL Blood 12/19/2024 1:44 AM CDT 12/19/2024 1:44 AM CDT us Niru Mtz MD LAB POCT ORDERABLES - DEVICE Final Result Performing Organization Address [facility] Co de Phone Number [facility]IE [facility] ([place]) 1 [facility] [place] [address] * (ABNORMAL) POCT glucose (12/18/2024 8:48 PM CDT) Glucose, POC 286(H) 70 - 199 mg/dL Blood 12/18/2024 8:48 PM CDT 12/18/2024 8:48 PM CDT us Niru Mtz MD LAB POCT ORDERABLES - DEVICE Final Result Performing Organization Address City/[facility] Co de Phone Number [facility]IE [facility] ([place]) 1 [facility] [place] [address] * POCT glucose (12/18/2024 4:44 PM CDT) Glucose, POC 157 70 - 199 mg/dL Blood 12/18/2024 4:44 PM CDT 12/18/2024 4:44 PM CDT us Niru Mtz MD LAB POCT ORDERABLES - DEVICE Final Result Performing Organization Address City/[facility]/ZIP Co de Phone Number [facility]IE [facility] ([place]) 1 [facility] [place] [address] * (ABNORMAL) POCT glucose (12/18/2024 12:12 PM CDT) Glucose, POC 201(H) 70 - 199 mg/dL Blood 12/18/2024 12:1 2 PM CDT 12/18/2024 12:12 PM CDT us Niru Mtz MD LAB POCT ORDERABLES - DEVICE Final Result [facility] ([place]) 1 [facility] [place] [address] * US VEIN DUPLEX LOWER EXTREMITY LEFT [...] Fabrizio Peñaloza M.D. KT: NINA Report ID: [id number] Reading Location: [id number] Procedure Note Fabrizio Peñaloza MD - 12/18/2024 [...] Fabrizio Peñaloza M.D. KT: KT Report ID: [id number] Reading Location: [place] [address] us Rachel Maciel DPM IMG US PROCEDURES Final Res ult * POCT glucose (12/18/2024 8:34 AM CDT) Glucose, POC 168 70 - 199 mg/dL Blood 12/18/2024 8:34 AM CDT 12/18/2024 8:34 AM CDT Niru Mtz MD LAB POCT ORDERABLES - DEVICE Final Result [facility] [place] 1 [facility] [place] [address] * eGFR (12/18/2024 2:09 AM CDT) Pathologist [facility] eGFR >90 >=60 mL/min/1. 73 m2 Comment: [...] MD LAB BLOOD ORDERABLES Final Re sult [facility] ([place]) 1 [facility] [place] [address] * (ABNORMAL) Basic metabolic panel (12/18/2024 2:09 AM CDT) Sodium 138 135 - 145 mmol/L [facility] ([place]) Potassium, pl [...] BLOOD ORDERABLES Final Re sult [facility] ([place]) 1 [facility] [place] [address] * POCT glucose (12/18/2024 1:48 AM CDT) Glucose, POC 183 70 - 199 mg/dL Blood 12/18/2024 1:48 AM CDT 12/18/2024 1:48 AM CDT Niru Mtz MD LAB POCT ORDERABLES - DEVICE Final Result Performing Organization Address [facility] Co de Phone Number [facility]IE [facility] ([place]) 1 [facility] [place] [address] * (ABNORMAL) POCT glucose (12/17/2024 8:46 PM CDT) Glucose, POC 283(H) 70 - 199 mg/dL Blood 12/17/2024 8:46 PM CDT 12/17/2024 8:46 PM CDT Niru Mtz MD LAB POCT ORDERABLES - DEVICE Final Result Performing Organization Address City/[facility] Co de Phone Number [facility]IE [facility] ([place]) 1 [facility] [place] [address] * (ABNORMAL) POCT glucose (12/17/2024 4:55 PM CDT) Glucose, POC 301(H) 70 - 199 mg/dL Blood 12/17/2024 4:55 PM CDT 12/17/2024 4:55 PM CDT us Niru Mtz MD LAB POCT ORDERABLES - DEVICE Final Result [facility] ([place]) 1 [facility] [place] [address] * XR Spine Lumbar 2 or 3 [...] Valente Lyn M.D. AR: BETITO Report ID: [id number] Reading Location: [id number] Procedure Note Valente Lyn MD - 12/17/2024 [...] Valente Lyn M.D. AR: BETITO Report ID: [id number] Reading Location: [place] [address] Rachel Maciel DPM IMG XR PROCEDURES Final Res ult * (ABNORMAL) POCT glucose (12/17/2024 11:27 AM CDT) Glucose, POC 282(H) 70 - 199 mg/dL Blood 12/17/2024 11:2 7 AM CDT 12/17/2024 11:27 AM CDT Niru Mtz MD LAB POCT ORDERABLES - DEVICE Final Result Performing Organization Address [facility]/ZIP Co de Phone Number [facility] ([place]) 1 [facility] [employer] [place], [place] [address] * (ABNORMAL) POCT glucose (12/17/2024 7:33 AM CDT) Glucose, POC 222(H) 70 - 199 mg/dL Blood 12/17/2024 7:33 AM CDT 12/17/2024 7:33 AM CDT Niru Mtz MD LAB POCT ORDERABLES - DEVICE Final Result Performing Organization Address City/[facility] Co de Phone Number [facility] ([place]) 1 [facility] [place] [address] * eGFR (12/17/2024 5:21 AM CDT) eGFR [...] MD LAB BLOOD ORDERABLES Final Re sult [facility] ([place]) 1 [facility] [place] [address] * Vancomycin level trough (12/17/2024 5:21 AM CDT) Vancomycin trough 13.5 10.0 - 20.0 mcg/mL [facility] ([place]) Blood 12/17/2024 5:21 AM CDT 12/17/2024 5:34 AM CDT us Neri Alvarez MD LAB BLOOD ORDERABLES Fi nal Result [facility] ([place]) 1 [facility] [place] [address] * (ABNORMAL) Basic metabolic panel (12/17/2024 5:21 AM CDT) Sodium 140 135 - 145 mmol/L [facility] ([place]) Potassium, pl 4.3 3.3 - 4.9 mmol/L [facility] ([place]) Chloride 108 97 - 110 mmol/L [facility] ([place]) CO2 17(L) 22 - 32 mmol/L [facility] ([place]) Anion gap 15 2 - 15 mmol/L [facility] ([place]) BUN 19 6 - 25 mg/dL [facility] ([place]) Creatinine 0.79(L) 0.80 - 1.30 mg/dL [facility] ([place]) Glucose 228(H) 70 - 199 mg/dL [facility] ([place]) Comment: Interpretive Data Fasting glucose [...] 2022. Calcium 9.3 8.5 - 10.3 mg/dL [facility] ([place]) Blood 12/17/2024 5:21 AM CDT 12/17/2024 5:53 AM CDT Niru Mtz MD LAB BLOOD ORDERABLES Final Re sult Performing Organization Address City/[facility]/ZIP Co de Phone Number [facility] ([place]) 1 [facility] [place] [address] * (ABNORMAL) POCT glucose (12/17/2024 1:59 AM CDT) Glucose, POC 256(H) 70 - 199 mg/dL Blood 12/17/2024 1:59 AM CDT 12/17/2024 1:59 AM CDT Niru Mtz MD LAB POCT ORDERABLES - DEVICE Final Result Performing Organization Address City/[facility]/ZIP Co de Phone Number [facility]IE [facility] ([place]) 1 [place] [address] * (ABNORMAL) POCT glucose (12/16/2024 8:45 PM CDT) Glucose, POC 285(H) 70 - 199 mg/dL Comment:Glu2: RN/MD Notified Blood 12/16/2024 8:45 PM CDT 12/16/2024 8:45 PM CDT Niru Mtz MD LAB POCT ORDERABLES - DEVICE Final Result [facility] ([place]) 1 [place] [address] * (ABNORMAL) POCT glucose (12/16/2024 5:02 PM CDT) Glucose, POC 356(H) 70 - 199 mg/dL Blood 12/16/2024 5:02 PM CDT 12/16/2024 5:02 PM CDT Niru Mtz MD LAB POCT ORDERABLES - DEVICE Final Result Performing Organization Address City/[facility]/ZIP Co de Phone Number [facility] ([place]) 1 [facility] [place] [address] * (ABNORMAL) POCT glucose (12/16/2024 11:37 AM CDT) Glucose, POC 356(H) 70 - 199 mg/dL Blood 12/16/2024 11:3 7 AM CDT 12/16/2024 11:37 AM CDT Niru Mtz MD LAB POCT ORDERABLES - DEVICE Final Result [facility] ([place]) 1 [facility] [place] [address] * (ABNORMAL) POCT glucose (12/16/2024 7:48 AM CDT) [facility] Glucose, POC 314(H) 70 - 199 mg/dL Blood 12/16/2024 7:48 AM CDT 12/16/2024 7:48 AM CDT us Niru Mtz MD LAB POCT ORDERABLES - DEVICE Final Result Performing Organization Address City/[facility]/ZIP Co de Phone Number [facility]OMIE [facility] ([place]) [address] [place] [address] [place] [address] * eGFR (12/16/2024 2:14 AM CDT) [facility] eGFR >90 >=60 mL/min/1. 73 m2 [...] BLOOD ORDERABLES Fi nal Result [facility]IE [facility] ([place]) 1 [facility] [place] [address] * Differential, auto (12/16/2024 2:14 AM CDT) [...] Fi nal Result [facility] ([place]) 1 [facility] [employer] [place] [address] * (ABNORMAL) CBC with auto differential (12/16/2024 [...] Fi nal Result [facility] ([place]) 1 [facility] [place] [place] [address] * Magnesium (12/16/2024 2:14 AM CDT) Magnesium 1.9 1.4 - 2.5 mg/dL [facility] ([place]) Blood 12/16/2024 2:14 AM CDT 12/16/2024 3:17 AM CDT us Neri Alvarez MD LAB BLOOD ORDERABLES Fi nal Result [facility] ([place]) 1 [facility] [place] [address] * (ABNORMAL) Comprehensive metabolic panel (12/16/2024 2:14 [...] BLOOD ORDERABLES Fi nal Result [facility]IE [facility] ([place]) 1 [facility] [place] [address] * (ABNORMAL) POCT glucose (12/16/2024 1:55 AM CDT) Glucose, POC 287(H) 70 - 199 mg/dL Blood 12/16/2024 1:55 AM CDT 12/16/2024 1:55 AM CDT us Niru Mtz MD LAB POCT ORDERABLES - DEVICE Final Result Performing Organization Address City/[facility]/ZIP Co de Phone Number [facility]IE [facility] ([place]) 1 [facility] [place] [address] * (ABNORMAL) POCT glucose (12/15/2024 8:32 PM CDT) Glucose, POC 362(H) 70 - 199 mg/dL Blood 12/15/2024 8:32 PM CDT 12/15/2024 8:32 PM CDT us Niru Mtz MD LAB POCT ORDERABLES - DEVICE Final Result Performing Organization Address City/[facility]/ZIP Co de Phone Number [facility]IE [facility] ([place]) 1 [facility] [place] [address] * (ABNORMAL) POCT glucose (12/15/2024 5:00 PM CDT) Glucose, POC 339(H) 70 - 199 mg/dL Blood 12/15/2024 5:00 PM CDT 12/15/2024 5:00 PM CDT Niru Mtz MD LAB POCT ORDERABLES - DEVICE Final Result Performing Organization Address City/[facility]/ZIP Co de Phone Number [facility]OMIE G[facility] ([place]) 1 [facility] [place] [address] * (ABNORMAL) POCT glucose (12/15/2024 2:21 PM CDT) Glucose, POC 375(H) 70 - 199 mg/dL Blood 12/15/2024 2:21 PM CDT 12/15/2024 2:21 PM CDT us Jh Cheema MD LAB POCT ORDERABLES - DEVICE Final Result Performing Organization Address [facility] Co de Phone Number [facility]IE [facility] ([place]) 1 [facility] [place] [address] * XR Foot Left 3 or More [...] Tenzin Lizama M.D. NS: NS Report ID: [id number] Reading Location: [id number] Procedure Note Tenzin Lizama MD - 12/15/2024 [...] Tenzin Lizama M.D. NS: NS Report ID: [id number] Reading Location: [id number] Jh Cheema MD IMG XR PROCEDURES Final Resu lt * Blood culture Blood (12/15/2024 2:00 PM CDT) Report Final Report: No growth Comment:Testing performed by : [facility], [address] [facility], [place]., [address] Blood 12/15/2024 2:00 PM CDT 12/15/2024 7:03 [...] performance characteristics have been verified by the [facility] Microbiology Laboratory. For questions about this culture, contact the Microbiology Laboratory at [phone]. Interpretive data was last revised on 24. Jh Cheema MD LAB MICROBIOLOGY - GENERAL O RDERABLES Final Result [facility] ([place]) 1 [facility] [place] [address] * eGFR (12/15/2024 1:40 PM CDT) eGFR [...] BLOOD ORDERABLES Final R esult [facility] ([place]) 1 [facility] [place] [address] * Differential, auto (12/15/2024 1:40 PM CDT) [...] Final R esult [facility] ([place]) 1 [facility] [place] [address] * CBC with auto differential (12/15/2024 1:40 [...] 0.00 0.00 - 0.01 K/cumm [facility] ([place]) Blood 12/15/2024 1:40 PM CDT 12/15/2024 1:45 PM CDT Jh Cheema MD LAB BLOOD ORDERABLES Final R esult [facility] ([place]) 1 [facility] [place] [address] * Blood culture Blood (12/15/2024 1:40 PM CDT) Report Final Report: No growth Comment:Testing performed by : [facility], [address] [facility], [place]., [address] Blood 12/15/2024 1:40 PM CDT 12/15/2024 7:03 PM CDT Narrative [facility] ([place]) - 12/20/2024 7:00 AM CDT 1. Blood [...] performance characteristics have been verified by the [facility]biology [facility]. For questions about this culture, contact the Microbiology Laboratory at [phone]. Interpretive data was last revised on 24. Jh Cheema MD LAB MICROBIOLOGY - GENERAL O RDERABLES Final Result Performing Organization Address City/[facility] Co de Phone Number [facility] ([place]) 1 [facility] [place] [address] * (ABNORMAL) Erythrocyte sedimentation rate (12/15/2024 1:40 PM CDT) Erythrocyte sedimentation rate 27(H) 1 - 15 mm/hr Blood 12/15/2024 1:40 PM CDT 12/15/2024 1:45 PM CDT Jh Cheema MD LAB BLOOD ORDERABLES Final R esult Performing Organization Address [facility] de Phone Number [facility] ([place]) 1 [place] [address] * CRP (acute phase) (12/15/2024 1:40 PM CDT) CRP 4.7 <=10.0 mg/L [facility] ([place]) Blood 12/15/2024 1:40 PM CDT 12/15/2024 1:45 PM CDT Jh Cheema MD LAB BLOOD ORDERABLES Final R esult Performing Organization Address [facility] Co de Phone Number [facility] ([place]) 1 [facility] [place] [address] * Ethanol (12/15/2024 1:40 PM CDT) Ethanol <10 <=10 mg/dL [facility] ([place]) Comment: Interpretive Data Legal limit of intoxication > or = 80 mg/dL Levels > or = 400 mg/dL are potentially TOXIC. Current interpretive data was last revised on 2018. Blood 12/15/2024 1:40 PM CDT 12/15/2024 1:45 PM CDT us Jh Cheema MD LAB BLOOD ORDERABLES Final R esult [facility] ([place]) 1 [facility] [place] [address] * (ABNORMAL) Comprehensive metabolic panel (12/15/2024 1:40 [...] BLOOD ORDERABLES Final R esult [facility] ([place]) 1 [facility] [place] [address] * (ABNORMAL) POCT glucose (12/06/2024 4:35 PM CDT) Glucose, POC 211(H) 70 - 199 mg/dL Blood 12/06/2024 4:35 PM CDT 12/06/2024 4:35 PM CDT us Lucy Grimm MD LAB POCT ORDERABLES - DEVICE Fi nal Result Performing Organization Address [facility]/ZIP Co de Phone Number [facility] ([place]) 1 [facility] [place] [address] * (ABNORMAL) POCT glucose (12/06/2024 11:35 AM CDT) Glucose, POC 308(H) 70 - 199 mg/dL Blood 12/06/2024 11:3 5 AM CDT 12/06/2024 11:35 AM CDT Lucy Grimm MD LAB POCT ORDERABLES - DEVICE Fi nal Result Performing Organization Address City/[facility]/ZIP Co de Phone Number [facility] ([place]) 1 [facility] [place] [address] * (ABNORMAL) POCT glucose (12/06/2024 7:42 AM CDT) Glucose, POC 307(H) 70 - 199 mg/dL Blood 12/06/2024 7:42 AM CDT 12/06/2024 7:42 AM CDT Lucy Grimm MD LAB POCT ORDERABLES - DEVICE Fi nal Result [facility] ([place]) 1 [facility] [place] [address] * (ABNORMAL) POCT glucose (12/06/2024 5:40 AM CDT) Glucose, POC 319(H) 70 - 199 mg/dL Blood 12/06/2024 5:40 AM CDT 12/06/2024 5:40 AM CDT Lucy Grimm MD LAB POCT ORDERABLES - DEVICE Fi nal Result Performing Organization Address City/[facility]/ZIP Co de Phone Number [facility] ([place]) 1 [facility] [place] [address] * eGFR (12/06/2024 5:33 AM CDT) eGFR [...] BLOOD ORDERABLES Final Resu lt [facility] ([place]) 1 [facility] [place] [address] * (ABNORMAL) Differential, auto (12/06/2024 5:33 AM [...] BLOOD ORDERABLES Final Resu lt [facility] ([place]) 1 [facility] [place] [address] * (ABNORMAL) CBC with auto differential (12/06/2024 [...] 40.6 35.7 - 48.1 fL [facility] ([place]) NRBC abs 0.00 0.00 - 0.01 K/cumm [facility] ([place]) Blood 12/06/2024 5:33 AM CDT 12/06/2024 6:07 AM CDT Lucy Grimm MD LAB BLOOD ORDERABLES Final Resu lt [facility] ([place]) 1 [facility] [place] [address] * (ABNORMAL) Phosphorus (12/06/2024 5:33 AM CDT) Phosphorus, pl 2.1(L) 2.3 - 4.5 mg/dL [facility] ([place]) Blood 12/06/2024 5:3 3 AM CDT 12/06/2024 6:07 AM CDT Lucy Grimm MD LAB BLOOD ORDERABLES Final Resu lt [facility] ([place]) 1 [facility] [place] [address] * Magnesium (12/06/2024 5:33 AM CDT) Magnesium 1.8 1.4 - 2.5 mg/dL [facility] ([place]) Blood 12/06/2024 5:33 AM CDT 12/06/2024 6:07 AM CDT Lucy Grimm MD LAB BLOOD ORDERABLES Final Resu lt [facility] ([place]) 1 [facility] [place] [address] * (ABNORMAL) Basic metabolic panel (12/06/2024 5:33 AM CDT) Sodium 134(L) 135 - 145 mmol/L [facility] ([place]) Potassium, pl 4.0 3.3 - 4.9 mmol/L [facility] ([place]) Chloride 103 97 - 110 mmol/L [facility] ([place]) CO2 20(L) 22 - 32 mmol/L [facility] ([place]) Anion gap 11 2 - 15 mmol/L [facility] ([place]) BUN 17 6 - 25 mg/dL [facility] ([place]) Creatinine 0.82 0.80 - 1.30 mg/dL [facility] ([place]) Glucose 330(H) 70 - 199 mg/dL [facility] ([place]) Comment: Interpretive Data Fasting glucose [...] 2022. Calcium 8.9 8.5 - 10.3 mg/dL [facility] ([place]) Blood 12/06/2024 5:33 AM CDT 12/06/2024 6:07 AM CDT us Lucy Grimm MD LAB BLOOD ORDERABLES Final Resu lt [facility] ([place]) 1 [facility] [place] [address] * (ABNORMAL) POCT glucose (12/06/2024 2:24 AM CDT) [facility] Signature Glucose, POC 378(H) 70 - 199 mg/dL Comment:Glu2: RN/ Notified Blood 12/06/2024 2:24 AM CDT 12/06/2024 2:24 AM CDT Lucy Grimm MD LAB POCT ORDERABLES - DEVICE Fi nal Result Performing Organization Address [facility]/ZIP Co de Phone Number [facility] ([place]) 1 [facility] [place] [address] * (ABNORMAL) POCT glucose (12/05/2024 11:22 PM CDT) Glucose, POC 316(H) 70 - 199 mg/dL Comment:Glu2: RN/MD Notified Blood 12/05/2024 11:2 2 PM CDT 12/05/2024 11:22 PM CDT us Lucy Grimm MD LAB POCT ORDERABLES - DEVICE Fi nal Result Performing Organization Address [facility] Co de Phone Number [facility] ([place]) 1 [facility] [place] [address] * (ABNORMAL) Vancomycin level trough (12/05/2024 11:01 PM CDT) Vancomycin trough 21.3(H) 10.0 - 20.0 mcg/mL [facility] ([place]) Blood 12/05/2024 11:0 1 PM CDT 12/05/2024 11:02 PM CDT us Lucy Grimm MD LAB BLOOD ORDERABLES Final Resu lt Performing Organization Address [facility] Co de Phone Number [facility] ([place]) 1 [facility] [place] [address] * (ABNORMAL) POCT glucose (12/05/2024 8:51 PM CDT) Glucose, POC 345(H) 70 - 199 mg/dL Blood 12/05/2024 8:51 PM CDT 12/05/2024 8:51 PM CDT us Lucy Grimm MD LAB POCT ORDERABLES - DEVICE Fi nal Result Performing Organization Address [facility]/ZIP Co de Phone Number [facility] ([place]) 1 [facility] [place] [address] * POCT glucose (12/05/2024 4:30 PM CDT) Glucose, POC 121 70 - 199 mg/dL Blood 12/05/2024 4:30 PM CDT 12/05/2024 4:30 PM CDT Lucy Grimm MD LAB POCT ORDERABLES - DEVICE Fi nal Result [facility] ([place]) 1 [facility] [place] [address] * Surgical pathology (12/05/2024 1:27 PM CDT) Tissue (Bone - Biopsy / Curettings) 12/05/2024 12:39 PM CDT Narrative PATHOLOGY [facility] ([place]) - 12/11/2024 12:58 PM CDT EPIC results best viewed via link to PDF [facility] Department of Pathology [address] [place] [id number] Note to Patients: This report may contain [...] Final Report Patient Name: KIMBERLY PALMER Address: [facility] [address], [place] [address] Gender: M : 1985 (Age: 38) Service: Medical Location: [facility] Hospital #: [id number] Patient Type: [facility] Taken: 12/05/2024 Received: 12/05/2024 Accessioned: 12/05/2024 [...] determined by the Surgical Pathology Department at [facility] as part of an ongoing corporate quality engineer program and in compliance with federally mandated [...] characteristics determined by the Surgical Pathology Department [facility]. It has not been cleared or approved by the U. S. Food and Drug Administration. Note for decalcified specimens: This assay has not been validated on decalcified tissues. Results should be interpreted with caution given the possibility of false negativity on decalcified specimens Sandie Ramirez DPM LAB PATHOLOGY ORDERABLES Fi nal Result Performing Organization Address [facility] Co de Phone Number PATHOLOGY [facility] ([place]) 1 [place] [address] * POCT glucose (12/05/2024 1:01 PM CDT) Glucose, POC 148 70 - 199 mg/dL Blood 12/05/2024 1:01 PM CDT 12/05/2024 1:01 PM CDT Lucy Grimm MD LAB POCT ORDERABLES - DEVICE Fi nal Result Performing Organization Address [facility] de Phone Number [facility] 1 [facility] [place] [address] * IA AN ELECTIVE SUPRAGLOTTIC AIRWAY (12/05/2024 12:27 PM CDT) Narrative Deepak Olmos CRNA - 12/05/2024 12:27 PM CDT Deepak Olmos CRNA 12/05/2024 12:28 PM Airway Patient location: OR Urgency: elective Date/time: 12/05/2024 12:19 PM Indications for airway management: anesthesia Difficult airway: no Staff: Placed by: INTERMEDIATE PROJECT MANAGER: Deepak Olmos CRNA Emergent airway documentation: Risks [...] - DEVICE Fi nal Result [facility] ([place]) 1 [facility] [place] [address] * (ABNORMAL) POCT glucose (12/05/2024 7:42 AM CDT) Glucose, POC 255(H) 70 - 199 mg/dL Blood 12/05/2024 7:42 AM CDT 12/05/2024 7:42 AM CDT Lucy Grimm MD LAB POCT ORDERABLES - DEVICE Fi nal Result Performing Organization Address City/[facility]/ZIP Co de Phone Number [facility] ([place]) [address] [place] [address] [place] [address] * eGFR (12/05/2024 7:27 AM CDT) eGFR [...] BLOOD ORDERABLES Fin al Result [facility] ([place]) 1 [facility] [place] [address] * (ABNORMAL) Differential, auto (12/05/2024 7:27 AM [...] Fin al Result [facility] ([place]) 1 [facility] [place] [address] * (ABNORMAL) CBC with auto differential (12/05/2024 [...] RDW SD 39.2 35.7 - 48.1 fL [facility] ([place] NRBC abs 0.00 0.00 - 0.01 K/cumm [facility] ([place]) Blood 12/05/2024 7:27 AM CDT 12/05/2024 7:56 AM CDT Yolis Miranda KlickEx DO LAB BLOOD ORDERABLES Fin al Result NAOMIE GOMEZ ([place]) 1 [facility] [place] [address] * Phosphorus (12/05/2024 7:27 AM CDT) Phosphorus, pl 3.0 2.3 - 4.5 mg/dL [facility] ([place]) Blood 12/05/2024 7:27 AM CDT 12/05/2024 7:55 AM CDT [facility] Ruth KlickEx DO LAB BLOOD ORDERABLES Fin al Result Performing Organization Address City/[facility] Co de Phone Number NAOMIE GOMEZ ([place]) 1 [facility] [place] [address] * Magnesium (12/05/2024 7:27 AM CDT) Magnesium 1.7 1.4 - 2.5 mg/dL [facility] ([place]) Blood 12/05/2024 7:27 AM CDT 12/05/2024 7:55 AM CDT [facility] Ruth KlickEx DO LAB BLOOD ORDERABLES Fin al Result Performing Organization Address City/[facility]/ZIP Co de Phone Number NAOMIE GOMEZ ([place]) 1 [facility] [place] [address] * (ABNORMAL) Comprehensive metabolic panel (12/05/2024 7:27 AM CDT) Sodium 135 135 - 145 mmol/L [facility] ([place]) Potassium, pl 3.8 3.3 - 4.9 mmol/L [...] Fin al Result [facility] ([place]) 1 [facility] [place] [address] * (ABNORMAL) POCT glucose (12/05/2024 1:59 AM CDT) Glucose, POC 292(H) 70 - 199 mg/dL Blood 12/05/2024 1:59 AM CDT 12/05/2024 1:59 AM CDT Yolis Pepper DO LAB POCT ORDERABLES - DE VICE Final Result NAOMIE GOMEZ ([place]) 1 [facility] [place] [address] * (ABNORMAL) POCT glucose (12/04/2024 9:59 PM CDT) Glucose, POC 307(H) 70 - 199 mg/dL Blood 12/04/2024 9:59 PM CDT 12/04/2024 9:59 PM CDT Yolis Ruth Pepper DO LAB POCT ORDERABLES - DE VICE Final Result Performing Organization Address City/[facility]/ZIP Co de Phone Number NAOMIE GOMEZ ([place]) 1 [facility] [place] [address] * (ABNORMAL) POCT glucose (12/04/2024 7:59 PM CDT) Glucose, POC 355(H) 70 - 199 mg/dL Blood 12/04/2024 7:59 PM CDT 12/04/2024 7:59 PM CDT Yolis Pepper DO LAB POCT ORDERABLES - DE VICE Final Result NAOMIE GOMEZ ([place]) 1 [facility] [place] [address] * (ABNORMAL) POCT glucose (12/04/2024 4:47 PM CDT) Glucose, POC 254(H) 70 - 199 mg/dL Blood 12/04/2024 4:47 PM CDT 12/04/2024 4:47 PM CDT Yolis Pepper DO LAB POCT ORDERABLES - DE VICE Final Result Performing Organization Address City/[facility]/ZIP Co de Phone Number NAOMIE GOMEZ ([place]) 1 [facility] [place] [address] * (ABNORMAL) POCT glucose (12/04/2024 2:02 PM CDT) Glucose, POC 296(H) 70 - 199 mg/dL Blood 12/04/2024 2:02 PM CDT 12/04/2024 2:02 PM CDT Yolis Pepper DO LAB POCT ORDERABLES - DE VICE Final Result Performing Organization Address [facility] Co de Phone Number NAOMEI GOMEZ ([place]) 1 [facility] [place] [address] * (ABNORMAL) POCT glucose (12/04/2024 11:39 AM CDT) Glucose, POC 321(H) 70 - 199 mg/dL Blood 12/04/2024 11:3 9 AM CDT 12/04/2024 11:39 AM CDT Yolis Pepper DO LAB POCT ORDERABLES - DE VICE Final Result Performing Organization Address [facility] Co de Phone Number NAOMIE GOMEZ ([place]) 1 [facility] [place] [address] * (ABNORMAL) POCT glucose (12/04/2024 11:36 AM CDT) Glucose, POC 339(H) 70 - 199 mg/dL Comment:Glu2: Will Repeat Te st Blood 12/04/2024 11:3 6 AM CDT 12/04/2024 11:36 AM CDT Yolis Pepper DO LAB POCT ORDERABLES - DE VICE Final Result Performing Organization Address City/[facility]/ZIP Co de Phone Number NAOMIE GOMEZ ([place]) 1 [facility] [place] [address] * eGFR (12/04/2024 8:29 AM CDT) eGFR [...] Fin al Result NAOMIE GOMEZ ([place]) 1 [facility] [place] [address] * Differential, auto (12/04/2024 8:29 AM CDT) [...] DO LAB BLOOD ORDERABLES Fin al Result NOAMIE GOMEZ ([place]) 1 [facility] [place] [address] * (ABNORMAL) CBC with auto differential (12/04/2024 8:29 AM CDT) WBC 5.99 3.80 - 9.90 K/cumm Hgb 11.3(L) 13.0 - 17.5 g/dL [facility] ([place]) Hct 32.6(L) 38.9 - 50.3 % [facility] ([place]) Plt 201 150 - 400 K/cumm [facility] ([place]) MPV 10.5 9.1 - 12.3 fL [facility] [...] ORDERABLES Fin al Result Performing Organization Address City/[facility]/ZIP Co de Phone Number NAOMIE GOMEZ ([place]) 1 [facility] [place] [address] * Phosphorus (12/04/2024 8:29 AM CDT) Phosphorus, pl 2.9 2.3 - 4.5 mg/dL [facility] ([place]) Blood 12/04/2024 8:29 AM CDT 12/04/2024 8:51 AM CDT Yolis Pepper DO LAB BLOOD ORDERABLES Fin al Result [facility] ([place]) 1 [facility] [place] [address] * Magnesium (12/04/2024 8:29 AM CDT) Magnesium 1.6 1.4 - 2.5 mg/dL [facility] ([place]) Blood 12/04/2024 8:29 AM CDT 12/04/2024 8:51 AM CDT Yolis Pepper DO LAB BLOOD ORDERABLES Fin al Result NAOMIE GOMEZ ([place]) 1 [facility] [place] [address] * (ABNORMAL) Comprehensive metabolic panel (12/04/2024 8:29 AM CDT) Sodium 135 135 - 145 mmol/L [facility] ([place]) Potassium, pl [...] ([place]) Glucose 329(H) 70 - 199 mg/dL [facility] ([place]) Comment: Interpretive Data Fasting glucose [...] Bilirubin, total 0.3 0.1 - 1.2 mg/dL [facility] ([place]) Protein, pl 6.1(L) 6.5 - 8.5 g/dL [facility] ([place]) Albumin 3.1(L) 3.5 - 5.0 g/dL [facility] ([place]) Alk phos 138(H) 40 - 130 Units/L [facility] ([place]) ALT 23 7 - 55 Units/L [facility] ([place]) AST 14 10 - 50 Units/L [facility] ([place]) Blood 12/04/2024 8:29 AM CDT 12/04/2024 8:51 AM CDT Yolis Pepper DO LAB BLOOD ORDERABLES Fin al Result Performing Organization Address City/[facility]/ZIP Co de Phone Number NAOMIE GOMEZ ([place]) 1 [facility] [place] [address] * (ABNORMAL) POCT glucose (12/04/2024 8:04 AM CDT) Glucose, POC 294(H) 70 - 199 mg/dL Blood 12/04/2024 8:04 AM CDT 12/04/2024 8:04 AM CDT Yolis Pepper DO LAB POCT ORDERABLES - DE VICE Final Result Performing Organization Address City/[facility] Co de Phone Number NAOMIE GOMZE ([place]) 1 [facility] [place] [address] * (ABNORMAL) POCT glucose (12/04/2024 2:13 AM CDT) Glucose, POC 356(H) 70 - 199 mg/dL Comment:Glu2: RN/MD Notified Blood 12/04/2024 2:13 AM CDT 12/04/2024 2:13 AM CDT Yolis Pepper DO LAB POCT ORDERABLES - DE VICE Final Result NAOMIE GOMEZ ([place]) 1 [facility] [place] [address] * (ABNORMAL) POCT glucose (12/03/2024 10:24 PM CDT) Glucose, POC 304(H) 70 - 199 mg/dL Blood 12/03/2024 10:2 4 PM CDT 12/03/2024 10:24 PM CDT Yolis Pepper DO LAB POCT ORDERABLES - DE VICE Final Result Performing Organization Address City/[facility]/ZIP Co de Phone Number NAOMIE GOMEZ ([place]) 1 [place] [address] * POCT glucose (12/03/2024 4:46 PM CDT) Glucose, POC 152 70 - 199 mg/dL Blood 12/03/2024 4:46 PM CDT 12/03/2024 4:46 PM CDT Yolis Pepper DO LAB POCT ORDERABLES - DE VICE Final Result Performing Organization Address City/[facility]/ZIP Co de Phone Number NAOMIE GOMEZ ([place]) 1 [facility] [place] [address] * (ABNORMAL) POCT glucose (12/03/2024 11:26 AM CDT) Glucose, POC 209(H) 70 - 199 mg/dL Blood 12/03/2024 11:2 6 AM CDT 12/03/2024 11:26 AM CDT Yolis Pepper DO LAB POCT ORDERABLES - DE VICE Final Result NAOMIE GOMEZ ([place]) 1 [facility] [place] [address] * eGFR (12/03/2024 7:31 AM CDT) eGFR [...] LAB BLOOD ORDERABLES Fin al Result NAOMIE [facility] ([place]) 1 [facility] [place] [address] * Differential, auto (12/03/2024 7:31 AM CDT) Pathologist [facility] Neutrophil abs 2.92 1.50 - 6.50 K/cumm Imm gran abs 0.03 0.00 - 0.10 K/cumm [facility] ([place]) Lymphocyte abs 1.71 0.80 - 3.30 K/cumm [facility] ([place]) Monocyte abs 0.53 0.20 - 0.80 K/cumm [facility] ([place]) Eosinophil abs 0.23 0.00 - 0.50 K/cumm [facility] ([place]) Basophil abs 0.03 0.00 - 0.10 K/cumm [facility] ([place]) Neutrophil pct 53.5 % [facility] ([place]) Comment: Interpretive Data Percent cell count reference [...] Fin al Result NAOMIE GOMEZ ([place]) 1 [facility] [place] [address] * (ABNORMAL) CBC with auto [...] 0.00 0.00 - 0.01 K/cumm [facility] ([place]) Blood 12/03/2024 7:31 AM CDT 12/03/2024 7:53 AM CDT Yolis Pepper DO LAB BLOOD ORDERABLES Fin al Result [facility] ([place]) 1 [facility] [place] [address] * Phosphorus (12/03/2024 7:31 AM CDT) Phosphorus, pl 3.1 2.3 - 4.5 mg/dL [facility] ([place]) Blood 12/03/2024 7:31 AM CDT 12/03/2024 7:53 AM CDT Yolis [employer] DO LAB BLOOD ORDERABLES Fin al Result [facility] ([place]) 1 [facility] [place] [address] * Magnesium (12/03/2024 7:31 AM CDT) Magnesium 1.6 1.4 - 2.5 mg/dL [facility] ([place]) Blood 12/03/2024 7:31 AM CDT 12/03/2024 7:53 AM CDT Yolis Pepper DO LAB BLOOD ORDERABLES Dionicio al Result [facility] ([place]) 1 [facility] [place] [address] * (ABNORMAL) Comprehensive metabolic panel (12/03/2024 7:31 [...] ([place]) AST 14 10 - 50 Units/L [facility] ([place]) Blood 12/03/2024 7:31 AM CDT 12/03/2024 7:53 AM CDT Yolis Pepper DO LAB BLOOD ORDERABLES Fin al Result NAOMIE GOMEZ ([place]) 1 [facility] [place] [address] * POCT glucose (12/03/2024 7:24 AM CDT) Glucose, POC 191 70 - 199 mg/dL Blood 12/03/2024 7:24 AM CDT 12/03/2024 7:24 AM CDT Yolis Pepper DO LAB POCT ORDERABLES - DE VICE Final Result Performing Organization Address [facility] Co de Phone Number NAOMIE GOMEZ ([place]) 1 [facility] [place] [address] * (ABNORMAL) POCT glucose (12/03/2024 2:24 AM CDT) Glucose, POC 207(H) 70 - 199 mg/dL Comment:Glu2: RN/MD Notified Blood 12/03/2024 2:24 AM CDT 12/03/2024 2:24 AM CDT Yolis BaileyShopEat DO LAB POCT ORDERABLES - DE VICE Final Result Performing Organization Address City/[facility] Co de Phone Number NAOMIE GOMEZ ([place]) 1 [facility] [place] [address] * (ABNORMAL) POCT glucose (12/02/2024 8:33 PM CDT) Glucose, POC 203(H) 70 - 199 mg/dL Blood 12/02/2024 8:33 PM CDT 12/02/2024 8:33 PM CDT Yolis Pepper DO LAB POCT ORDERABLES - DE VICE Final Result Performing Organization Address [facility]/ZIP Co de Phone Number NAOMIE GOMEZ ([place]) 1 [facility] [place] [address] * (ABNORMAL) POCT glucose (12/02/2024 4:31 PM CDT) Glucose, POC 211(H) 70 - 199 mg/dL Blood 12/02/2024 4:31 PM CDT 12/02/2024 4:31 PM CDT Yolis Pepper DO LAB POCT ORDERABLES - DE VICE Final Result Performing Organization Address [facility] Co de Phone Number NAOMIE GOMEZ ([place]) 1 [facility] [place] [address] * Lactate (12/02/2024 2:31 PM CDT) Lactate 1.5 0.7 - 2.0 mmol/L Blood 12/02/2024 2:31 PM CDT 12/02/2024 2:35 PM CDT Yolis Pepper DO LAB BLOOD ORDERABLES Fin al Result Performing Organization Address City/[facility]/ZIP Co de Phone Number NAOMIE GOMEZ ([place]) 1 [facility] [place] [address] * (ABNORMAL) POCT glucose (12/02/2024 11:26 AM CDT) Glucose, POC 218(H) 70 - 199 mg/dL Blood 12/02/2024 11:2 6 AM CDT 12/02/2024 11:26 AM CDT Yolis Pepper DO LAB POCT ORDERABLES - DE VICE Final Result Performing Organization Address City/[facility]/ZIP Co de Phone Number NAOMIE GOMEZ ([place]) 1 [facility] [place] [address] * eGFR (12/02/2024 10:25 AM CDT) eGFR [...] 5 AM CDT 12/02/2024 10:59 AM CDT Yolsi Pepper DO LAB BLOOD ORDERABLES Fin al Result NAOMIE GOMEZ ([place]) 1 [facility] [place] [address] * Differential, auto (12/02/2024 10:25 AM CDT) [...] BLOOD ORDERABLES Fin al Result NAOMIE GOMEZ ([place]) 1 [facility] [place] [address] * (ABNORMAL) CBC with auto differential (12/02/2024 [...] ORDERABLES Fin al Result Performing Organization Address City/[facility] Co de Phone Number [facility] ([place]) 1 [facility] [place] [address] * (ABNORMAL) CRP (acute phase) (12/02/2024 10:25 AM CDT) CRP 71.7(H) <=10.0 mg/L [facility] ([place]) Blood 12/02/2024 10:2 5 AM CDT 12/02/2024 2:10 PM CDT Yolis BaileyInterMetro Communications LAB BLOOD ORDERABLES Fin al Result Performing Organization Address City/State/[facility] Co de Phone Number NAOMIE GOMEZ ([place]) 1 [facility] [place] [address] * (ABNORMAL) Phosphorus (12/02/2024 10:25 AM CDT) Phosphorus, pl 1.7(L) 2.3 - 4.5 mg/dL NAOMIE GOMEZ ([place]) Blood 12/02/2024 10:2 5 AM CDT 12/02/2024 10:59 AM CDT Yolis Pepper DO LAB BLOOD ORDERABLES Fin al Result Performing Organization Address City/[facility]/ZIP Co de Phone Number NAOMIE GOMEZ ([place]) 1 [facility] [place] [address] * Magnesium (12/02/2024 10:25 AM CDT) Magnesium 1.7 1.4 - 2.5 mg/dL [facility] ([place]) Blood 12/02/2024 10:2 5 AM CDT 12/02/2024 10:59 AM CDT Yolis Pepper DO LAB BLOOD ORDERABLES Fin al Result Performing Organization Address [facility]/ZIP Co de Phone Number NAOMIE GOMEZ ([place]) 1 [facility] [place] [address] * Creatine kinase (CK), total (12/02/2024 10:25 AM CDT) CK 98 40 - 300 Units/L NAOMIE GOMEZ ([place]) Blood 12/02/2024 10:2 5 AM CDT 12/02/2024 2:10 PM CDT Yolis Pepper DO LAB BLOOD ORDERABLES Fin al Result Performing Organization Address City/[facility]/ZIP Co de Phone Number NAOMIE GOMEZ ([place]) 1 [facility] [place] [address] * Vancomycin level trough Draw trough prior to 4th dose. (12/02/2024 10:25 AM CDT) Vancomycin trough 14.6 10.0 - 20.0 mcg/mL NAOMIE GOME[facility] ([place]) Blood 12/02/2024 10:2 5 AM CDT 12/02/2024 11:00 AM CDT Narrative [facility] ([place]) - 12/02/2024 11:28 AM CDT Draw trough prior to 4th dose. us Shannan Garcia NP LAB BLOOD ORDERABLES Final Resul t NAOMIE GOMEZ ([place]) 1 [facility] [place] [address] * (ABNORMAL) Comprehensive metabolic panel (12/02/2024 10:25 AM CDT) Sodium 138 135 - 145 mmol/L [facility] ([place]) Potassium, pl 4.8 3.3 - 4.9 mmol/L [facility] ([place]) Chloride 105 97 - 110 mmol/L [facility] ([place]) CO2 19(L) 22 - 32 mmol/L [facility] ([place]) Anion gap 14 2 - 15 mmol/L [facility] ([place]) BUN 10 6 - 25 mg/dL [facility] ([place]) Creatinine 0.77(L) 0.80 - 1.30 mg/dL [facility] ([place]) Glucose 248(H) [...] ORDERABLES Fin al Result Performing Organization Address City/[facility] Co de Phone Number NAOMIE GOMEZ ([place]) 1 [facility] [place] [address] * (ABNORMAL) Erythrocyte sedimentation rate (12/02/2024 10:22 AM CDT) Erythrocyte sedimentation rate 68(H) 1 - 15 mm/hr Blood 12/02/2024 10:2 2 AM CDT 12/02/2024 2:26 PM CDT Yolis Pepper DO LAB BLOOD ORDERABLES Fin al Result Performing Organization Address City/[facility]/ZIP Co de Phone Number NAOMIE GOMEZ ([place]) 1 [facility] [place] [address] * (ABNORMAL) POCT glucose (12/02/2024 7:37 AM CDT) Glucose, POC 333(H) 70 - 199 mg/dL Blood 12/02/2024 7:37 AM CDT 12/02/2024 7:37 AM CDT Yolis Pepper DO LAB POCT ORDERABLES - DE VICE Final Result Performing Organization Address City/[facility]/ZIP Co de Phone Number NAOMIE GOMEZ ([place]) 1 [place] [address] * (ABNORMAL) POCT glucose (12/02/2024 2:21 AM CDT) Glucose, POC 386(H) 70 - 199 mg/dL Blood 12/02/2024 2:21 AM CDT 12/02/2024 2:21 AM CDT Yolis Pepper DO LAB POCT ORDERABLES - DE VICE Final Result Performing Organization Address City/[facility]/ZIP Co de Phone Number NAOMIE GOMEZ ([place]) 1 [place] [address] * (ABNORMAL) POCT glucose (12/01/2024 9:04 PM CDT) Glucose, POC 360(H) 70 - 199 mg/dL Blood 12/01/2024 9:04 PM CDT 12/01/2024 9:04 PM CDT Yolis Pepper DO LAB POCT ORDERABLES - DE VICE Final Result Performing Organization Address City/[facility]/ZIP Co de Phone Number NAOMIE GOMEZ ([place]) 1 [facility] [place] [address] * (ABNORMAL) POCT glucose (12/01/2024 4:17 PM CDT) Glucose, POC 243(H) 70 - 199 mg/dL Blood 12/01/2024 4:17 PM CDT 12/01/2024 4:17 PM CDT Yolis Pepper DO LAB POCT ORDERABLES - DE VICE Final Result NAOMIE GOMEZ ([place]) 1 [facility] [place] [address] * (ABNORMAL) Urinalysis reflex to microscopic and [...] tendency for uric acid stone formation. Source: [facility] [place] Current Interpretive Data was last revised on [...] NINI Final Result [facility] ([place]) 1 [facility] [place] [address] * (ABNORMAL) Urinalysis, microscopic only (12/01/2024 3:26 PM CDT) WBC, ur 6-10(A) 0 - 5 /HPF RBC, ur 0-2 0 - 2 /HPF [facility] ([place]) Epithelial cells, squamous, ur 1-5 0 - 5 /HPF [facility] ([place]) Bacteria, ur Trace(A) [facility] ([place]) Mucous, ur Present(A) [facility] ([place]) Culture Reflex Comment Reflex conditions for urine culture (WBC >10) not met. [facility] ([place]) Urine 12/01/2024 3:26 PM CDT 12/01/2024 3:36 PM CDT Giovanna Ceron MD LAB URINE ORDERABLES Leyla l Result [facility] ([place]) 1 [facility] [place] [address] * (ABNORMAL) POCT glucose (12/01/2024 11:51 AM CDT) Glucose, POC 290(H) 70 - 199 mg/dL Blood 12/01/2024 11:5 1 AM CDT 12/01/2024 11:51 AM CDT Yolis Pepper DO LAB POCT ORDERABLES - DE VICE Final Result Performing Organization Address City/[facility]/ZIP Co de Phone Number [facility] ([place]) 1 [facility] [place] [address] * (ABNORMAL) Troponin T high-sensitivity (12/01/2024 11:45 AM CDT) Trop T hs 50(H) <=22 ng/L [facility] ([place]) Comment: Interpretive Data For further hscTnT resources including the diagnostic algorithm and an aid in interpretation, copy and paste this link: https://nrl.testcatalog.org/show/hsTrop Current Interpretive Data last revised 2020. Blood 12/01/2024 11:4 5 AM CDT 12/01/2024 11:50 AM CDT Yolis Ruth Fasick DO LAB BLOOD ORDERABLES Fin al Result Performing Organization Address City/[facility]/ZIP Co de Phone Number NAOMIE GOMEZ ([place]) 1 [facility] [place] [address] * (ABNORMAL) Hemoglobin and hematocrit (12/01/2024 11:45 AM CDT) Hgb 11.5(L) 13.0 - 17.5 g/dL Hct 33.1(L) 38.9 - 50.3 % [facility] ([place]) Blood 12/01/2024 11:4 5 AM CDT 12/01/2024 11:50 AM CDT Yolis Pepper [employer] LAB BLOOD ORDERABLES Fin al Result Performing Organization Address [facility] Co de Phone Number NAOMIE GOMEZ ([place]) 1 [facility] [place] [address] * (ABNORMAL) aPTT (12/01/2024 11:45 AM CDT) [...] ORDERABLES Fin al Result Performing Organization Address City/[facility]/ZIP Co de Phone Number NAOMIE GOMEZ ([place]) 1 [facility] [place] [address] * Protime-INR (12/01/2024 11:45 AM CDT) PT [...] 12/01/2024 11:50 AM CDT Narrative [facility] ([place]) - 12/01/2024 12:13 PM CDT Baseline prior to enoxaparin initiation. Yolis BaileyInterMetro Communications LAB BLOOD ORDERABLES Fin al Result NA[facility]IE GOME[facility] ([place]) 1 [facility] [place] [address] * D-dimer, quantitative (12/01/2024 11:45 AM CDT) D-Dimer <215 <=499 ng/mL FEU [facility] ([place]) Comment: Interpretive data FDA approved the D-dimer, [...] Fin al Result NAOMIE GOMEZ ([place]) 1 [facility] [place] [address] * (ABNORMAL) Phosphorus (12/01/2024 11:45 AM CDT) Phosphorus, pl 1.5(L) 2.3 - 4.5 mg/dL [facility] ([place]) Blood 12/01/2024 11:4 5 AM CDT 12/01/2024 11:50 AM CDT Yolis Pepper DO LAB BLOOD ORDERABLES Fin al Result [facility] ([place]) 1 [facility] [place] [address] * Magnesium (12/01/2024 11:45 AM CDT) Magnesium 1.7 1.4 - 2.5 mg/dL [facility] ([place]) Blood 12/01/2024 11:4 5 AM CDT 12/01/2024 11:50 AM CDT Yolis Pepper DO LAB BLOOD ORDERABLES Fin al Result [facility] ([place]) 1 [facility] [place] [address] * (ABNORMAL) POCT glucose (12/01/2024 8:12 AM CDT) Glucose, POC 210(H) 70 - 199 mg/dL Blood 12/01/2024 8:12 AM CDT 12/01/2024 8:12 AM CDT Yolis Pepper DO LAB POCT ORDERABLES - DE VICE Final Result [facility] ([place]) 1 [facility] [place] [address] * US VEIN DUPLEX LOWER EXTREMITY LEFT [...] Heriberto Coleman M.D. AM: AM Report ID: [id number] Reading Location: [id number] Procedure Note Heriberto Coleman MD - 12/01/2024 [...] Heriberto Coleman M.D. AM: AM Report ID: [id number] Reading Location: [place] [address] us Nelson Chang MD IMG US PROCEDURES Final Result * Sepsis Lactate w/ Reflex (12/01/2024 5:22 AM CDT) Sepsis Lactate 1.0 0.7 - 2.0 mmol/L Blood 12/01/2024 5:22 AM CDT 12/01/2024 5:31 AM CDT us Giovanna Ceron MD LAB BLOOD ORDERABLES Leyla l Result [facility] [place] 1 [facility] [place] [address] * eGFR (12/01/2024 5:22 AM [...] Final Resu lt [facility]IE [facility] ([place]) 1 [facility] [place] [address] * (ABNORMAL) Erythrocyte sedimentation rate (12/01/2024 5:22 AM CDT) Erythrocyte sedimentation rate 47(H) 1 - 15 mm/hr Blood 12/01/2024 5:22 AM CDT 12/01/2024 5:30 AM CDT us Nelson Chang MD LAB BLOOD ORDERABLES Final Resu lt [facility] ([place]) 1 [facility] [place] [address] * (ABNORMAL) CBC without differential (12/01/2024 5:22 [...] ([place]) MCH 30.0 27.1 - 33.3 pg [facility]) MCHC 34.9 32.3 - 35.7 g/dL [facility] ([place]) RDW CV 13.2 11.1 - 14.9 % [facility] ([place]) RDW SD 40.9 35.7 - 48.1 fL [facility] ([place]) NRBC abs 0.00 0.00 - 0.01 K/cumm [facility] ([place]) Blood 12/01/2024 5:22 AM CDT 12/01/2024 5:30 AM CDT us Shannan Garcia NP LAB BLOOD ORDERABLES Final Resul t [facility] ([place]) 1 [facility] [place] [address] * (ABNORMAL) CRP (acute phase) (12/01/2024 5:22 AM CDT) CRP 143.0(H) <=10.0 mg/L NAOMIE [facility] ([place]) Blood 12/01/2024 5:22 AM CDT 12/01/2024 5:31 AM CDT us Nelson Chang MD LAB BLOOD ORDERABLES Final Resu lt [facility] ([place]) [address] [place] [address] [place] [address] * (ABNORMAL) Hemoglobin A1c (12/01/2024 5:22 AM CDT) Hgb A1C 10.5(H) 4.0 - 5.6 % [facility] ([place]) Estimated Average Glucose 255 mg/dL [facility] ([place]) Comment: The ADA recommends reporting an estimated Average Glucose (eAG) with all Hemoglobin A1c results using the equation derived from a study of 507 normal and diabetic adults. Minority populations were underrepresented and children were not included. (Diabetes Care 31:5428-6823, 2008). The eAG is not equivalent to a fasting glucose. Testing performed by: [facility], [address] [facility], [place], [address] Blood 12/01/2024 5:22 AM CDT 12/01/2024 5:30 AM CDT Shannan Garcia NP LAB BLOOD ORDERABLES Final Resul t Performing Organization Address [facility] Co de Phone Number [facility] ([place]) [address] [facility] [place] [address] * (ABNORMAL) Blood gas, venous (12/01/2024 5:22 AM CDT) pH, Venous 7.33 7.32 - 7.43 PCO2, Venous 37(L) 40 - 50 mmHg [facility] ([place]) PO2, Venous 67 mmHg [facility] ([place]) HCO3 Venous, Calculated 19(L) 20 - 30 mmol/L [facility] ([place]) BE, venous -6 mmol/L [facility] ([place]) Comment: Interpretive Data No Reference Range Established Current Interpretive Data was last revised on 2017. Blood 12/01/2024 5:22 AM CDT 12/01/2024 5:31 AM CDT Shannan Garcia NP LAB BLOOD ORDERABLES Final Resul t Performing Organization Address [facility] Co de Phone Number [facility] ([place]) 1 [facility] [place] [address] * (ABNORMAL) Comprehensive metabolic panel (12/01/2024 5:22 [...] Final Resu lt [facility] ([place]) [address] [facility] Department of Laboratories [place], [place] [id number] * POCT glucose (12/01/2024 3:14 AM CDT) Glucose, POC 184 70 - 199 mg/dL Blood 12/01/2024 3:14 AM CDT 12/01/2024 3:14 AM CDT us Nelson Chang MD LAB POCT ORDERABLES - DEVICE Fi nal Result Performing Organization Address [facility]/ZIP Co de Phone Number [facility] ([place]) 1 [facility] [place] [address] * (ABNORMAL) Sepsis Lactate w/ Reflex (12/01/2024 12:26 AM CDT) Sepsis Lactate 2.5(H) 0.7 - 2.0 mmol/L Blood 12/01/2024 12:2 6 AM CDT 12/01/2024 12:35 AM CDT us Giovanna Ceron MD LAB BLOOD ORDERABLES Leyla l Result Performing Organization Address [facility] Co de Phone Number [facility] ([place]) 1 [facility] [place] [address] * (ABNORMAL) POCT glucose (12/01/2024 12:23 AM CDT) Glucose, POC 248(H) 70 - 199 mg/dL Blood 12/01/2024 12:2 3 AM CDT 12/01/2024 12:23 AM CDT Notinfile Unknown LAB POCT ORDERABLES - DEVICE F inal Result Performing Organization Address [facility] Co de Phone Number [facility] ([place]) 1 [facility] [place] [address] * CT Entire Lower Extremity Left W [...] Fabrizio Heath M.D. KH: ALBERTO Report ID: [id number] Reading Location: [id number] Procedure Note Fabrizio Heath MD - 12/01/2024 [...] Fabrizio Heath M.D. KH: ALBERTO Report ID: [id number] Reading Location: [place] [address] Shannan Garcia NP IMG CT PROCEDURES Final Result * Beta-hydroxybutyrate (11/30/2024 10:41 PM CDT) Beta-Hydroxybut yrate <0.2 <=0.5 mmol/L Comment:Testing performed by : [facility], [address] [place] [address], [facility] Blood 11/30/2024 10:4 1 PM CDT 12/01/2024 9:21 AM CDT Shannan Garcia NP LAB BLOOD ORDERABLES Final Resul t [facility] ([place]) 1 [facility] Department of Laboratories [place], [place] [id number] * (ABNORMAL) Blood gas, venous (11/30/2024 10:41 PM CDT) pH, Venous 7.31(L) 7.32 - 7.43 PCO2, Venous 47 40 - 50 mmHg [facility] ([place]) PO2, Venous 29 mmHg NA[facility]IE [...] Final Resul t [facility] ([place]) 1 [facility] [place] [address] * Blood culture Blood (11/30/2024 10:33 PM CDT) Report Final Report: No growth Comment:Testing performed by : [facility], [address] [place]., [address] Blood 11/30/2024 10:3 3 PM CDT 12/01/2024 [...] performance characteristics have been verified by the [facility] Microbiology Laboratory. For questions about this culture, contact the Microbiology Laboratory at [phone]. Interpretive data was last revised on 24. us Nelson Chang MD LAB MICROBIOLOGY - [facility] Final Result [facility] ([place]) 1 [facility] [place] [address] * XR Chest 1 Vw Portable (If [...] Mediastinal and hilar contours appear normal. LINES/TUBES: REINFORCED CONCRETE INSPECTOR shunt catheter courses down the right chest. BONES: No acute osseous abnormality. IMPRESSION: No acute cardiopulmonary abnormality. THIS IS AN ELECTRONICALLY VERIFIED FINAL REPORT 11/30/2024 9:14 PM - Electronically signed by Heriberto Coleman M.D. AM: AM Report ID: [id number] Reading Location: [id number] Procedure Note Heriberto Coleman MD - 11/30/2024 [...] size. Mediastinal andhilar contours appear normal. LINES/TUBES: REINFORCED CONCRETE INSPECTOR shunt catheter courses down the right chest. BONES: No acute osseous abnormality. IMPRESSION: No acute cardiopulmonary abnormality. THIS IS AN ELECTRONICALLY VERIFIED FINAL REPORT 11/30/2024 9:14 PM - Electronically signed by Heriberto Coleman M.D. AM: AM Report ID: [id number] Reading Location: [id number] Nelson Chang MD IMG XR PROCEDURES Final Result * (ABNORMAL) Sepsis Lactate w/ Reflex (11/30/2024 9:05 PM CDT) Sepsis Lactate 2.9(H) 0.7 - 2.0 mmol/L Blood 11/30/2024 9:05 PM CDT 11/30/2024 9:07 PM CDT Nelson Chang MD LAB BLOOD ORDERABLES Final Resu lt [facility] [place]) 5 [facility] Department of Laboratories [place] [id number] * eGFR (11/30/2024 9:05 PM CDT) eGFR [...] PM CDT 11/30/2024 9:07 PM CDT us Nelosn Chang MD LAB BLOOD ORDERABLES Final Resu lt [facility] ([place]) 1 [facility] [place] [address] * (ABNORMAL) Differential, auto (11/30/2024 9:05 PM CDT) Neutrophil abs 11.14(H) 1.50 - 6.50 K/cumm Imm gran abs 0.06 0.00 - 0.10 K/cumm [facility] ([place]) Lymphocyte abs 0.78(L) 0.80 - 3.30 K/cumm [facility] ([place]) Monocyte abs 0.63 0.20 - 0.80 K/cumm [facility] ([place]) Eosinophil abs 0.04 0.00 - 0.50 K/cumm [facility] ([place]) Basophil abs 0.04 0.00 - 0.10 K/cumm [facility] ([place]) Neutrophil pct 87.8 % [facility] ([place]) Comment: Interpretive Data Percent cell count reference [...] Lymphocyte pct 6.1 % [facility] ([place]) Comment: Interpretive Data Percent cell count reference ranges are not reported, since discordance with absolute values may lead to misinterpretation of CBC data. Current Interpretive Data was last revised on 2017. Monocyte pct 5.0 % [facility] ([place]) Comment: Interpretive Data Percent cell count reference [...] Final Resu lt [facility] ([place]) 1 [facility] [place] [address] * (ABNORMAL) CBC with auto differential (11/30/2024 [...] Final Resu lt [facility] ([place] 1 [facility] [place] [address] * Blood culture Blood (11/30/2024 9:05 PM CDT) Report Final Report: No growth Comment:Testing performed by : [facility], [address] [place]., [address] Blood 11/30/2024 9:05 PM CDT 12/01/2024 12:49 [...] performance characteristics have been verified by the [facility] Microbiology Laboratory. For questions about this culture, contact the Microbiology Laboratory at [phone]. Interpretive data was last revised on 24. us Nelson Chang MD LAB MICROBIOLOGY - GENERAL KAMALA GRAHAM Final Result [facility] ([place]) 1 [facility] [place] [address] * (ABNORMAL) Comprehensive metabolic panel (11/30/2024 9:05 [...] [facility] ([place]) Comment: Critical Result called by [email or web address] at 2024-11-30 21:47:32. Result Read Back by [...] Final Resu lt [facility] ([place]) 1 [facility] [place] [address] * (ABNORMAL) Ret[employer] Scanner - OU - [...] BLOOD ORDERABLES Final Res ult [facility] ([place]) 1 [facility] [place] [address] from Last 3 Months or Most Recently Relevant to Health Maintenance Insurance [employer] GOLD [employer] Advance Directives For more information, please contact: [phone] * Full Code (Latest Code Status on [...] 3:15 AM 12/05/2024 2:06 PM Care Teams Assembly Operator Relationship Specialty Start Date End Date Irene Larkin BED MACHINE OPERATOR [address] [place] [address] PCP - General Family Medicine 08/31/24 Toribio Wolfe MD Consulting Physician Cardiovascular Disease 02/22/24 Lilibeth Swanson NP Nurse Practitioner Endocrinology Diabetes & Metabolism 02/22/24 Tera Yousif MD [address] [place] [address] [address] [place] [address] Consulting Physician Gastroenterology 02/22/24 Sandie Ramirez DPM [address] [address] Consulting Physician Foot and Ankle Surg 02/22/24 Tarun Dunham MD [address] [place] [address] [address] [place] [address] Consulting Physician Hematology and Oncology 02/22/24 Galileo Reese DPM [address] [place] [address] Consulting Physician Foot and Ankle Surg 05/25/24 Allan Tang MD [address] [address] Consulting Physician Infectious Diseases 07/06/24
[2025-02-09 10:44] LABS: Hematocrit 38.8 % (42.0-52.0); Hemoglobin 13.6 g/dL (14.0-18.0); Immature Granulocyte Percent A 0.4 % (0-0.5); Lymphocytes Absolute Auto 1.38 K/mm3 (0.9-3.2); Mean Corpuscular HGB Conc 35.1 g/dl (32-36); Mean Corpuscular Hemoglobin 30.2 pg (26-34); Mean Corpuscular Volume 86.2 fl (80-100); Nucleated Red Blood Cells Absolute Auto 0.000 K/mm3 (0.0-0.012); Nucleated Red Blood Cells Perc 0.0 % (0.0-0.2); Platelet Count Result 180 k/mm3 (150-375); Red Blood Count 4.50 M/mm3 (4.6-6.20); White Blood Count 7.4 K/mm3 (4.5-10.0)
[2025-02-09 10:54] LABS: INR 1.1; Prothrombin Time 14.4 Seconds (11.1-14.7)
[2025-02-09 10:55] LABS: Partial Thromboplastin Time 31.1 Seconds (22.3-36.8)
[2025-02-09 11:02] LABS: Alanine Aminotransferase 25 U/L (6-50); Albumin Level 3.7 g/dL (3.5-5.1); Alkaline Phosphatase 85 U/L (38-126); Anion Gap 10 mmol/L (4-12); Aspartate Amino Transferase 21 U/L (17-59); Bilirubin,Total 0.8 mg/dL (0.2-1.3); Blood Urea Nitrogen 18 mg/dL (9-20); Calcium 8.7 mg/dL (8.4-10.2); Carbon Dioxide 20 mmol/L (22-30); Chloride 106 mmol/L (98-107); Estimated CRCL calculation 127 ml/min; Estimated Glomerular Filt Rate > 60; Glucose 291 mg/dL (65-110); Potassium 3.7 mmol/L (3.4-5.0); Sodium 136 mmol/L (137-145); Total Protein 6.5 g/dL (6.3-8.2)
[2025-02-09 11:09] LABS: Beta-Hydroxybutyrate/Acetoace. 0.07 mmol/L (0.02-0.27)
[2025-02-09 11:12] LABS: Hemoglobin A1C 8.0 % (<5.7)
[2025-02-09] MEDS: LACTATED RINGERS 1,000 ML 999 ML IV CONT (14:12)
[2025-02-09 14:13] VITALS: BP 130/84; PULSE 79; RESP 16; O2SAT 99
[2025-02-09] MEDS: HYDROcodone/acetaminophen (*CRX) 10-325 MG TABLET 1 TAB PO (14:15)
[2025-02-09] MEDS: CIPROFLOXACIN 500 MG TAB PO (16:30)
== END 2025-02-09 16:36 | disposition home or self-care (01) ==
PROVIDERS: Emergency Provider Emergency Medicine
DX: L08.9 Local infection of the skin and subcutaneous tissue, unspecified (principal); M79.672 Pain in left foot; E11.9 Type 2 diabetes mellitus without complications
CPT/HCPCS: 36415; 73701; 80053; 82010; 82948; 83036; 85025; 85610; 85730; 96360; 99284; A9270; J7120; Q9967